=== PATIENT | female | born 1965 | race Caucasian/White ===

== ENCOUNTER → 2020-01-24 | Outpatient (CLI) | payer OTHER ==
[~2020-01-24] MED LIST: ATENOLOL25 MG PO; ATENOLOL50 MG PO; BACTRIM DS TAB1 EACH PO; KEFLEX500 MG PO; NABUMETONE500 MG PO; PROTONIX20 MG PO; RELAFEN PO; TESSALON PERLE100 MG PO; TIROSINT125 MCG PO; TIROSINT150 MCG PO; ULTRAM50 MG PO; VITAMIN D5000 UNIT PO; Z.0.LEVOTHYROXINE150 PO
[2020-01-24 12:37] LABS: BASOPHILS # (AUTO) 0.1 (0.0-0.1); BASOPHILS % 0.7 % (0.0-1.0); EOSINOPHILS # (AUTO) 0.1 (0.0-0.4); EOSINOPHILS % 0.8 % (0.0-6.0); HEMATOCRIT 41.2 % (34.2-44.1); HEMOGLOBIN 12.4 g/dL (12.0-16.0); LYMPHOCYTES # (AUTO) 2.3 (1.0-3.2); LYMPHOCYTES % 16.6 % (18.0-39.1); MEAN CORPUSCULAR HEMOGLOBIN 27.3 pg (28-32); MEAN CORPUSCULAR HGB CONC 30.1 g/dL (31-35); MEAN CORPUSCULAR VOLUME 90.7 fL (81-99); MONOCYTES # (AUTO) 1.7 (0.2-0.8); NEUTROPHILS # (AUTO) 9.6 (2.1-6.9); NEUTROPHILS % 69.3 % (38.7-80.0); PLATELET COUNT 156 x10e3/uL (140-360); RED BLOOD COUNT 4.54 x10e6/uL (3.6-5.1); RED CELL DISTRIBUTION WIDTH 13.5 % (11.7-14.4)
[2020-01-24 12:57] LABS: ALBUMIN 3.5 g/dL (3.5-5.0); ALBUMIN/GLOBULIN RATIO 0.9 (0.8-2.0); ANION GAP 11.2 mmol/L (8-16); CALCIUM 9.1 mg/dL (8.4-10.2); CREATININE, SERUM 1.4 mg/dL (0.57-1.11); POTASSIUM 4.2 mmol/L (3.5-5.1)
--- NOTE | 2020-01-24 13:20 | Diagnostic Imaging Report ---
EXAM: CHEST 2 VIEWS DATE: 01/24/2020 12:49 PM INDICATION: Preoperative evaluation, bladder cancer COMPARISON: 12/04/2019 FINDINGS: The trachea is midline. The lungs are symmetrically expanded without evidence for large focal consolidation, pneumothorax, or significant pleural effusion. The cardiomediastinal silhouette and pulmonary vasculature are within normal limits. Degenerative changes noted of the visualized spine. No acute osseous abnormality is identified. The surrounding soft tissues are unremarkable. IMPRESSION: No acute cardiopulmonary process identified. Signed by: Dr. Trell Guzman MD on 01/24/2020 1:16 PM
[2020-01-24 14:31] LABS: BAND NEUTROPHILS % (MANUAL) 4 %; LYMPHOCYTES % (MANUAL) 16 % (19-48); MONOCYTES % (MANUAL) 10 % (3.4-9.0); NEUTROPHILS % (MANUAL) 70 % (40-74); PLATELET ESTIMATE SLIGHTLY DECREASED; PLATELET MORPHOLOGY COMMENT NORMAL
== END ==
LOC: RAD 05:00 → EDSTATUS 01-30 09:00
PROVIDERS: ATTEND Urology
DX: Z01.818 Encounter for other preprocedural examination (principal); C67.9 Malignant neoplasm of bladder, unspecified; Z53.8 Procedure and treatment not carried out for other reasons; Z11.59 Encounter for screening for other viral diseases
CPT/HCPCS: 36415; 71046; 80053; 85025; 87086; 87186; U0002

== ENCOUNTER 2020-01-25 12:38 | Inpatient (IN) | payer OTHER ==
[~2020-01-25] VITALS: Ht 162.6 cm; Wt 145.6 kg
[~2020-01-25 12:38] MED LIST changes: -KEFLEX500 MG PO; -ULTRAM50 MG PO
[2020-01-25] MEDS ORDERED: SODIUM CHLORIDE 0.9% 1000ML 1,000 ML IV STA (13:23)
[2020-01-25 13:52] LABS: BASOPHILS # (AUTO) 0.1 (0.0-0.1); BASOPHILS % 0.6 % (0.0-1.0); EOSINOPHILS # (AUTO) 0.2 (0.0-0.4); EOSINOPHILS % 1.5 % (0.0-6.0); HEMATOCRIT 38.5 % (34.2-44.1); HEMOGLOBIN 11.7 g/dL (12.0-16.0); LYMPHOCYTES # (AUTO) 1.4 (1.0-3.2); LYMPHOCYTES % 9.9 % (18.0-39.1); MEAN CORPUSCULAR HEMOGLOBIN 27.4 pg (28-32); MEAN CORPUSCULAR HGB CONC 30.4 g/dL (31-35); MEAN CORPUSCULAR VOLUME 90.2 fL (81-99); MONOCYTES # (AUTO) 1.3 (0.2-0.8); MONOCYTES % 9.6 % (4.4-11.3); NEUTROPHILS # (AUTO) 10.9 (2.1-6.9); NEUTROPHILS % 77.9 % (38.7-80.0); PLATELET COUNT 329 x10e3/uL (140-360); RED BLOOD COUNT 4.27 x10e6/uL (3.6-5.1); RED CELL DISTRIBUTION WIDTH 13.7 % (11.7-14.4)
[2020-01-25 14:15] LABS: INR 0.97; PARTIAL THROMBOPLASTIN TIME 24.7 seconds (23.8-35.5); PROTHROMBIN TIME 13.5 seconds (11.9-14.5)
[2020-01-25 14:18] LABS: CLARITY,URINE HAZY (CLEAR); COLOR,URINE RED (YELLOW)
[2020-01-25 14:20] LABS: BILIRUBIN,URINE SMALL (NEGATIVE); KETONES,URINE NEGATIVE (NEGATIVE); LEUKOCYTE ESTERASE ,URINE NEGATIVE (NEGATIVE); NITRITE,URINE NEGATIVE (NEGATIVE); PROTEIN,URINE DIPSTICK >=300 (NEGATIVE); URINE UROBILINOGEN 0.2 mg/dL (0.2 - 1)
[2020-01-25 14:21] LABS: WBC,URINE (MAN) 0-5 /HPF (0-5)
[2020-01-25 14:22] LABS: EPITHELIAL CELLS,URINE RARE /LPF; RBC,URINE >50 /HPF (0-5)
[2020-01-25 14:23] LABS: ALBUMIN 3.4 g/dL (3.5-5.0); ALBUMIN/GLOBULIN RATIO 0.9 (0.8-2.0); ANION GAP 13.8 mmol/L (8-16); CALCIUM 8.7 mg/dL (8.4-10.2); CREATININE, SERUM 1.8 mg/dL (0.57-1.11); POTASSIUM 3.8 mmol/L (3.5-5.1)
--- NOTE | 2020-01-25 18:16 | Diagnostic Imaging Report ---
EXAM: CT Abdomen and Pelvis WITHOUT contrast INDICATION: Stone Protocol, H/O BLADDER CA, HEMATURIA RENAL COMPARISON: None. TECHNIQUE: Abdomen and pelvis were scanned utilizing a multidetector helical scanner from the lung base to the pubic symphysis without administration of IV contrast. Absence of intravenous contrast decreases sensitivity for detection of focal lesions and vascular pathology. Coronal and sagittal reformations were obtained. Routine protocol was performed. IV CONTRAST: None ORAL CONTRAST: Water COMPLICATIONS: None RADIATION DOSE: Total DLP: 775.12 mGy-cm Estimated effective dose: (DLP x 0.015 x size factor) mSv CTDIvol has been reviewed. It is below the limits set by the Radiation Protocol Committee (RPC). FINDINGS: LINES and TUBES: None. LOWER THORAX: There is bibasilar linear atelectasis. HEPATOBILIARY: The liver is diffuse hypodense compared to the spleen, consistent with diffuse hepatic diffuse hepatic steatosis. No focal hepatic lesions. No biliary ductal dilation. GALLBLADDER: There are cholecystectomy clips. SPLEEN: There is absent PANCREAS: The unenhanced pancreas shows no focal masses. There is no ductal dilatation. ADRENALS: The adrenal glands are unremarkable. KIDNEYS/URETERS/BLADDER: Left kidney: Left kidney is surgically absent. Slight soft tissue infiltration is noted in the left nephrectomy surgical bed (series 3, images [id number]) which could be postoperative. Right kidney:No cystic or solid mass lesions although evaluation is limited due to lack of IV contrast. There is mild right-sided hydroureteronephrosis. No definite stone is seen. This is likely due to bladder mass. Bladder: There is a 2.6 x 6.9 cm mass in the posterior bladder which is incompletely seen and evaluated on this exam. GI TRACT: No abnormal distention, wall thickening, or evidence of bowel obstruction. PELVIC ORGANS: Calcified fibroid uterus LYMPH NODES: No lymphadenopathy. VESSELS: Vessels are incompletely evaluated due to lack of IV contrast. However no definite aneurysm seen. PERITONEUM / RETROPERITONEUM: No free air or fluid. BONES: There are degenerative changes in the spine. SOFT TISSUES: Unremarkable. IMPRESSION: 1. Incompletely seen and evaluated mass in the bladder which approximately measures 2.6 x 6.9 cm. Recommend further evaluation with cystoscopy. 2. Mild right-sided hydroureteronephrosis likely due to obstruction by bladder mass. No obstructing calculus. 3. Left kidney is surgically absent. Slight soft tissue infiltration is noted in the left nephrectomy surgical bed likely postoperative. Recommend attention on follow-up Signed by: Kamaljit Rodriguez MD on 01/25/2020 6:12 PM
--- NOTE | 2020-01-25 18:40 | Emergency Department Note ---
History of Present Illnes History of Present Illness Chief Complaint: Genitourinary History of Present Illness This is a 54 year old female PATIENT IN FROM HOME WITH COMPLAINTS OF BLOOD IN URINE AND PAIN WITH URINATION X 2 WEEKS; STATES IS BEING TREATED FOR BLADDER CANCER. Historian: Patient Arrival Mode: Car Upholstery Cutter Required: No Radiation: Reports non-radiation Severity: moderate Onset quality: gradual Timing of current episode: constant Progression: worsening Chronicity: chronic Context: Denies recent illness Relieving factors: none Exacerbating factors: none Associated symptoms: Reports denies other symptoms Treatments prior to arrival: none Past Medical/Family History Physician Review I have reviewed the patient's past medical and family history. Any updates have been documented here. Past Medical History Recent Fever: No Clinical Suspicion of Infectio: No New/Unexplained Change in Ment: No Past Medical History: Hypertension, Hypothyroidism, Cancer Other Medical History: PALPITATIONS LEFT RENAL MASS BLADDER AND KIDNEY CANCER Past Surgical History: Cholecysctectomy, T&A Other Surgery: THROIDECTOMY OCTOBER 2010 LEFT FOOT SURGERY ACHILLES TENDON SURGERY RIGHT HAND FIBROID CYST SPLEENECTOMY LEFT NEPHRECTOMY Social History Smoking Cessation: Never Smoker Counseling Performed: No Alcohol Use: None Any Illegal Drug Use: No TB Exposure/Symptoms: No Physically hurt or threatened: No Family History Family history of heart diseas: No Other Last Tetanus: UTD Review of Systems Review of Systems Constitutional: Reports no symptoms EENTM: Reports no symptoms Cardiovascular: Reports no symptoms Respiratory: Reports no symptoms Gastrointestinal: Reports no symptoms Genitourinary: Reports as per HPI Musculoskeletal: Reports no symptoms Integumentary: Reports no symptoms Neurological: Reports no symptoms Psychological: Reports no symptoms Endocrine: Reports no symptoms Hematological/Lymphatic: Reports no symptoms Physical Exam Related Data Allergies: Coded Allergies: ceftriaxone (Verified Allergy, Unknown, SWELLING, WELTS, 01/25/20) morphine (Verified Allergy, Unknown, NAUSEA, 01/25/20) Triage Vital Signs Vital Signs Date Time Temp Pulse Resp B/P (MAP) Pulse Ox O2 Delivery O2 Flow Rate FiO2 01/25/20 12:57 99.0 78 18 176/96 98 Room Air Vital signs reviewed: Yes Physical Exam CONSTITUTIONAL Constitutional: Present well-developed, Present well-nourished HENT HENT: Present normocephalic, Present atraumatic, Present oropharynx clear/moist, Present nose normal HENT L/R: Present left ext ear normal, Present right ext ear normal EYES Eyes: Reports PERRL, Reports conjunctivae normal NECK Neck: Present ROM normal PULMONARY Pulmonary: Present effort normal, Present breath sounds normal CARDIOVASCULAR Cardiovascular: Present regular rhythm, Present heart sounds normal, Present capillary refill normal, Present normal rate GASTROINTESTINAL Abdominal: Present soft, Present bowel sounds normal, Present tender (MILD SUPRAPUBIC TENDERNESS) GENITOURINARY Genitourinary: Present exam deferred SKIN Skin: Present warm, Present dry MUSCULOSKELETAL Musculoskeletal: Present ROM normal NEUROLOGICAL Neurological: Present alert, Present oriented x 3, Present no gross motor or sensory deficits PSYCHOLOGICAL Psychological: Present mood/affect normal, Present judgement normal Results Laboratory Result Diagram: 01/25/20 1300 01/25/20 1300 Laboratory Laboratory Tests Test 01/25/20 13:00 White Blood Count 13.93 x10e3/uL (4.8-10.8) Red Blood Count 4.27 x10e6/uL (3.6-5.1) Hemoglobin 11.7 g/dL (12.0-16.0) Hematocrit 38.5 % (34.2-44.1) Mean Corpuscular Volume 90.2 fL (81-99) Mean Corpuscular Hemoglobin 27.4 pg (28-32) Mean Corpuscular Hemoglobin Concent 30.4 g/dL (31-35) Red Cell Distribution Width 13.7 % (11.7-14.4) Platelet Count 329 x10e3/uL (140-360) Neutrophils (%) (Auto) 77.9 % (38.7-80.0) Lymphocytes (%) (Auto) 9.9 % (18.0-39.1) Monocytes (%) (Auto) 9.6 % (4.4-11.3) Eosinophils (%) (Auto) 1.5 % (0.0-6.0) Basophils (%) (Auto) 0.6 % (0.0-1.0) Neutrophils # (Auto) 10.9 (2.1-6.9) Lymphocytes # (Auto) 1.4 (1.0-3.2) Monocytes # (Auto) 1.3 (0.2-0.8) Eosinophils # (Auto) 0.2 (0.0-0.4) Basophils # (Auto) 0.1 (0.0-0.1) Absolute Immature Granulocyte (auto 0.07 x10e3/uL (0-0.1) Prothrombin Time 13.5 seconds (11.9-14.5) Prothromb Time International Ratio 0.97 Activated Partial Thromboplast Time 24.7 seconds (23.8-35.5) Urine Color Red (YELLOW) Urine Clarity Hazy (CLEAR) Urine pH 7 (5 - 7) Urine Specific [place] 1.025 (1.010-1.025) Urine Protein >=300 (NEGATIVE) Urine Glucose (UA) Negative (NEGATIVE) Urine Ketones Negative (NEGATIVE) Urine Blood Large (NEGATIVE) Urine Nitrite Negative (NEGATIVE) Urine Bilirubin Small (NEGATIVE) Urine Urobilinogen 0.2 mg/dL (0.2 - 1) Urine Leukocyte Esterase Negative (NEGATIVE) Urine RBC >50 /HPF (0-5) Urine WBC 0-5 /HPF (0-5) Urine Epithelial Cells Rare /LPF (NONE) Urine Bacteria None /HPF (NONE) Sodium Level 143 mmol/L (136-145) Potassium Level 3.8 mmol/L (3.5-5.1) Chloride Level 107 mmol/L (98-107) Carbon Dioxide Level 26 mmol/L (22-29) Anion Gap 13.8 mmol/L (8-16) Blood Urea Nitrogen 24 mg/dL (7-26) Creatinine 1.80 mg/dL (0.57-1.11) Estimat Glomerular Filtration Rate 29 ML/MIN (60-) BUN/Creatinine Ratio 13 (6-25) Glucose Level 123 mg/dL (74-118) Calcium Level 8.7 mg/dL (8.4-10.2) Total Bilirubin 0.2 mg/dL (0.2-1.2) Aspartate Amino Transf (AST/SGOT) 24 IU/L (5-34) Alanine Aminotransferase (ALT/SGPT) 23 IU/L (0-55) Alkaline Phosphatase 92 IU/L (40-150) Total Protein 7.1 g/dL (6.5-8.1) Albumin 3.4 g/dL (3.5-5.0) Globulin 3.7 g/dL (2.3-3.5) Albumin/Globulin Ratio 0.9 (0.8-2.0) Lab results reviewed: Yes Imaging Imaging results reviewed: Yes Impressions Procedure: [id number] CT/CT ABDOMEN/PELVIS WO Exam Date: 01/25/20 Exam Time: 1710 REPORT STATUS: Signed EXAM: CT Abdomen and Pelvis WITHOUT contrast INDICATION: Stone Protocol, H/O BLADDER CA, HEMATURIA RENAL COMPARISON: None. TECHNIQUE: Abdomen and pelvis were scanned utilizing a multidetector helical scanner from the lung base to the pubic symphysis without administration of IV contrast. Absence of intravenous contrast decreases sensitivity for detection of focal lesions and vascular pathology. Coronal and sagittal reformations were obtained. Routine protocol was performed. IV CONTRAST: None ORAL CONTRAST: Water COMPLICATIONS: None RADIATION DOSE: Total DLP: 775.12 mGy-cm Estimated effective dose: (DLP x 0.015 x size factor) mSv CTDIvol has been reviewed. It is below the limits set by the Radiation Protocol Committee (RPC). FINDINGS: LINES and TUBES: None. LOWER THORAX: There is bibasilar linear atelectasis. HEPATOBILIARY: The liver is diffuse hypodense compared to the spleen, consistent with diffuse hepatic diffuse hepatic steatosis. No focal hepatic lesions. No biliary ductal dilation. GALLBLADDER: There are cholecystectomy clips. SPLEEN: There is absent PANCREAS: The unenhanced pancreas shows no focal masses. There is no ductal dilatation. ADRENALS: The adrenal glands are unremarkable. KIDNEYS/URETERS/BLADDER: Left kidney: Left kidney is surgically absent. Slight soft tissue infiltration is noted in the left nephrectomy surgical bed (series 3, images [id number]) which could be postoperative. Right kidney:No cystic or solid mass lesions although evaluation is limited due to lack of IV contrast. There is mild right-sided hydroureteronephrosis. No definite stone is seen. This is likely due to bladder mass. Bladder: There is a 2.6 x 6.9 cm mass in the posterior bladder which is incompletely seen and evaluated on this exam. GI TRACT: No abnormal distention, wall thickening, or evidence of bowel obstruction. PELVIC ORGANS: Calcified fibroid uterus LYMPH NODES: No lymphadenopathy. VESSELS: Vessels are incompletely evaluated due to lack of IV contrast. However no definite aneurysm seen. PERITONEUM / RETROPERITONEUM: No free air or fluid. BONES: There are degenerative changes in the spine. SOFT TISSUES: Unremarkable. IMPRESSION: 1. Incompletely seen and evaluated mass in the bladder which approximately measures 2.6 x 6.9 cm. Recommend further evaluation with cystoscopy. 2. Mild right-sided hydroureteronephrosis likely due to obstruction by bladder mass. No obstructing calculus. 3. Left kidney is surgically absent. Slight soft tissue infiltration is noted in the left nephrectomy surgical bed likely postoperative. Recommend attention on follow-up Signed by: Kamaljit Rodriguez MD on 01/25/2020 6:12 PM Assessment & Plan Medical Decision Making MDM CBC, CHEM, PT/PTT, UA, CT ABD/PELVIS - EVAL FOR ANEMIA, RENAL INSUFF, OBSTRUCTIVE UROPATHY Reassessment Reassessment D/W DR NOLAN, ADMIT TO DR PATEL, DR NOLAN WANTS ANCEF 1 GM IV Q12H Assessment & Plan Final Impression: (1) Hematuria (2) Bladder cancer (3) Ureteral obstruction, right (4) Solitary right kidney (5) Renal insufficiency Depart Disposition: ADMITTED Last Vital Signs Date Time Temp Pulse Resp B/P (MAP) Pulse Ox O2 Delivery O2 Flow Rate FiO2 01/25/20 12:57 99.0 78 18 176/96 98 Room Air Home Meds Reported Medications Pantoprazole Sodium (PROTONIX) 20 Mg Tablet.dr, 40 MG PO DAILY, #30 TAB 01/24/20 Sulfamethoxazole/Trimethoprim (BACTRIM DS TABLET) 1 Each Tablet, 1 TAB PO BID, #60 TAB 01/24/20 Atenolol (ATENOLOL) 50 Mg Tablet, 100 MG PO DAILY 10/09/16 Levothyroxine Sodium (TIROSINT) 150 Mcg Capsule, 150 MCG PO DAILY 10/09/16 Cholecalciferol (Vitamin D3) (VITAMIN D) 5,000 Unit Tablet, 1 TAB PO DAILY 12/01/13 Discontinued Reported Medications [Relafen] No Conflict Check, 500 MG PO BID 10/09/16 Medications in the ED Sodium Chloride 1,000 ml @ 0 mls/hr Q0M STAT IV Last administered on 01/25/20at 15:51; Admin Dose 1,000 MLS/HR; Start 01/25/20 at 13:23; Stop 01/25/20 at 13:25; Status DC LILIANA BORGES MD Jan 25, 2020 18:39
[2020-01-25] MEDS ORDERED: ONDANSETRON HCL INJ 2MG/ML 2ML 2 MG/ML VIAL IV PRN (18:45)
[2020-01-25] MEDS ORDERED: HYDROMORPHONE 1MG/1ML INJ IV PRN (18:45)
--- NOTE | 2020-01-25 20:35 | NUR ---
PT HAD PRE-OP COVID -19 SWAB OBTAINED YESTERDAY, 01/24/20.
[2020-01-25 21:45] VITALS: BP 152/79
--- NOTE | 2020-01-25 22:00 | NUR ---
Pt admitted to room 202 via WC from home. Pt alert and oriented to name, hospital, time, and diagnosis: Bladder Cancer, Renal Insufficiency, Solitary Rt Kidney since November 2019, Right Ureteral obstruction, and Hematuria. Pt skin warm and intact, healed vertical abdomen wound incision. Lungs CTA. Denies pain at this time. Last Bowel 01/24. c/o hematuria, bright red urine with clots increased since yesterday. Ambulatory, steady gait. Orientated to room, call light within reach. Bed low and locked.
[2020-01-25] MEDS: PIPERACILLIN/TAZO 2.25 GM 50 ML IV SCH (23:00)
[2020-01-25] MEDS: SODIUM CHLORIDE 0.9% 1000ML 1,000 ML IV SCH (23:00)
[2020-01-25 23:14] VITALS: BP 152/79
[2020-01-25 23:15] VITALS: BP 152/79
[2020-01-26] VITALS (7 sets, daily range): BP systolic 121–159; BP diastolic 69–90
[2020-01-26 01:43] LABS: CREATINE KINASE 12 IU/L (29-168)
[2020-01-26] MEDS: SODIUM CHLORIDE 0.9% 1000ML 1,000 ML IV SCH ×2 (04:45→11:00)
[2020-01-26] MEDS: PIPERACILLIN/TAZO 2.25 GM 50 ML IV SCH (04:56)
[2020-01-26 05:57] LABS: BASOPHILS # (AUTO) 0.1 (0.0-0.1); BASOPHILS % 0.5 % (0.0-1.0); EOSINOPHILS # (AUTO) 0.2 (0.0-0.4); EOSINOPHILS % 1.8 % (0.0-6.0); HEMATOCRIT 34.6 % (34.2-44.1); HEMOGLOBIN 10.4 g/dL (12.0-16.0); LYMPHOCYTES # (AUTO) 2.8 (1.0-3.2); LYMPHOCYTES % 21.4 % (18.0-39.1); MEAN CORPUSCULAR HEMOGLOBIN 27.4 pg (28-32); MEAN CORPUSCULAR HGB CONC 30.1 g/dL (31-35); MEAN CORPUSCULAR VOLUME 91.1 fL (81-99); MONOCYTES # (AUTO) 1.4 (0.2-0.8); NEUTROPHILS # (AUTO) 8.4 (2.1-6.9); NEUTROPHILS % 64.8 % (38.7-80.0); PLATELET COUNT 296 x10e3/uL (140-360); RED CELL DISTRIBUTION WIDTH 13.7 % (11.7-14.4)
[2020-01-26 06:42] LABS: ALBUMIN 3.1 g/dL (3.5-5.0); ANION GAP 11.9 mmol/L (8-16); CREATININE, SERUM 1.74 mg/dL (0.57-1.11); POTASSIUM 3.9 mmol/L (3.5-5.1)
[2020-01-26 07:11] LABS: CREATINE KINASE 14 IU/L (29-168)
[2020-01-26 11:19] LABS: CREATINE KINASE MB 0.3 ng/mL (0-5.0)
[2020-01-26] MEDS ORDERED: ATENOLOL 100 MG TAB PO SCH (12:15)
[2020-01-26] MEDS ORDERED: ZOLPIDEM TARTRATE 10 MG TAB PO PRN (15:00)
--- NOTE | 2020-01-26 16:02 | Diagnostic Imaging Report ---
EXAMINATION: CHEST 2 VIEWS INDICATION: ^pre op COMPARISON: None FINDINGS: PA and lateral views TUBES and LINES: None. LUNGS/PLEURA: Lungs are well inflated. There are bilateral interstitial opacities could be due to pulmonary edema. Focal left basilar opacity could be due to atelectasis or pneumonia.. There is no pleural effusion or pneumothorax. HEART AND MEDIASTINUM: The cardiomediastinal silhouette is unremarkable. BONES AND SOFT TISSUES: No acute osseous lesion. Soft tissues are unremarkable. UPPER ABDOMEN: No free air under the diaphragm. IMPRESSION: Bilateral interstitial opacities could be due to pulmonary edema. Focal left basilar opacity could be due to atelectasis. Pneumonia could be considered in appropriate clinical setting. Signed by: Kamaljit Rodriguez MD on 01/26/2020 3:59 PM
--- NOTE | 2020-01-26 16:25 | Consultation ---
DATE OF CONSULTATION: 01/26/[address] Parker George. The patient is a 54-year-old female who comes to the hospital with gross hematuria and passing clots and having difficulties urinating. The patient by history had three months ago left nephrectomy for cancer of the kidney, involve the ureter. 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 The patient also was found to have a bladder cancer. 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 Originally, the patient was sent to [facility] for treatment. Unfortunately, [facility] did not take her insurance. She then was sent to [facility]. Unfortunately, again [facility] did not accept her insurance. They have been delayed in her treatment over the last 2-1/2 months because of also restrictions to hospitals as well as verification because of the Coronavirus that we have now in [facility]. We finally have obtained operating room time here at [facility] and of course the operating room time is restricted because again of the Coronavirus outbreak. The patient has had multiple episodes in the last three weeks of gross hematuria. Finally, yesterday, she started passing clots and she came to the hospital. Evaluation did show that she has mild hydronephrosis on the right kidney, which is a kidney that 3-1/2 to 4 months ago when she was originally seen, did not have any hydronephrosis. In fact, on the CT, it is noted that the tumor in the bladder has grown. Currently, I have discussed the problem with obtaining earlier operating room time with the patient. I will be discussing the case with Dr. Bernal, co-surgeon in this case, and see if we can take the patient to the operating room earlier than . If not, the patient will have her bowel prep here in the hospital. I will order a chest x-ray for tomorrow. Her evaluation has been essentially metastatic free so far. She has seen her oncologist, Dr. Youngblood and we are planning to do adjuvant chemo since this tumor is quite aggressive as I see now the growth and the obstruction to the right side. I have discussed with the patient the surgery, the loop, the complications, hysterectomy as well oophorectomy and partial vaginectomy. She understands that her body habitus is little difficult, particularly with the loop and I consulted Dr. Bernal, who has been kind enough to do the loop harvesting. MD SINDY Payton/ROSANA /[id number]
[2020-01-26] MEDS: ACETAMINOPHEN 325 MG TAB PO PRN ×2 (16:41→22:05)
[2020-01-26] MEDS: ATENOLOL 50 MG TAB PO SCH (16:41)
--- NOTE | 2020-01-26 18:55 | NUR ---
Bedside shift report completed with morning nurse. Pt lying IN BED HOB 45 DEGREES. Pt denies pain at this time. Call light within reach. Bed locked.
[2020-01-27] VITALS: BP 171/90
[2020-01-27 04:00] VITALS: BP 135/83
[2020-01-27 05:30] LABS: BASOPHILS # (AUTO) 0.1 (0.0-0.1); BASOPHILS % 0.5 % (0.0-1.0); EOSINOPHILS # (AUTO) 0.6 (0.0-0.4); EOSINOPHILS % 4.9 % (0.0-6.0); HEMATOCRIT 35.4 % (34.2-44.1); HEMOGLOBIN 10.5 g/dL (12.0-16.0); LYMPHOCYTES # (AUTO) 2.4 (1.0-3.2); LYMPHOCYTES % 21.7 % (18.0-39.1); MEAN CORPUSCULAR HEMOGLOBIN 27.5 pg (28-32); MEAN CORPUSCULAR HGB CONC 29.7 g/dL (31-35); MEAN CORPUSCULAR VOLUME 92.7 fL (81-99); MONOCYTES # (AUTO) 1.3 (0.2-0.8); MONOCYTES % 11.6 % (4.4-11.3); NEUTROPHILS # (AUTO) 6.8 (2.1-6.9); NEUTROPHILS % 60.9 % (38.7-80.0); PLATELET COUNT 291 x10e3/uL (140-360); RED BLOOD COUNT 3.82 x10e6/uL (3.6-5.1); RED CELL DISTRIBUTION WIDTH 13.8 % (11.7-14.4)
[2020-01-27] MEDS: LEVOTHYROXINE SODIUM 100 MCG TAB PO SCH (05:52)
[2020-01-27 05:56] LABS: ANION GAP 11.3 mmol/L (8-16); CALCIUM 8.6 mg/dL (8.4-10.2); CREATININE, SERUM 1.98 mg/dL (0.57-1.11); POTASSIUM 4.3 mmol/L (3.5-5.1)
[2020-01-27] MEDS ORDERED: ATENOLOL 50 MG TAB PO SCH (09:00)
[2020-01-27] MEDS: SODIUM CHLORIDE 0.9% 1000ML 1,000 ML IV SCH ×2 (09:06→16:11)
[2020-01-27] MEDS: ATENOLOL 50 MG TAB PO SCH (09:09)
[2020-01-27 09:15] VITALS: BP 156/84
--- NOTE | 2020-01-27 09:40 | NUR ---
ASSESSMENT: Spiritual concern Pt determined to recover from illness. 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 Pt states she has a large support group of family and friends. Intervention: Provided hospitality and facilitated illness review. Facilitated conversation about resources. Provided information on how to reach button grader, if needed. Outcome: Pt expressed appreciation for visit. No need to follow at this time. MARYANA FLETCHER User Interface Engineer Spiritual Care Department O: [phone]
--- NOTE | 2020-01-27 09:48 | Progress Note ---
DATE: Today, the patient states the urine is relatively clear. No clots since last evening. I discussed with the patient to let us know if she has passed some more clots. I will put a Bowers catheter in, I do not want her bladder distended. So far, I have discussed the case with Dr. Bernal and the operating room. The operating room has no more elective time until to do this case, so we will have to wait until to do so. She is receiving IV antibiotics. Hopefully, if she had a minor infection, this will cleared up and we prevent any further edematous changes as reaction to the tumor causing mild hydronephrosis. So far, the target date of surgery is morning. Stated because of COVID-19, the operating rooms schedule is decreased, particularly on elective procedures and will have to wait until there is room to do so. MD SINDY Payton/MODL /[id number]
[2020-01-27 11:00] VITALS: BP 143/83
[2020-01-27] MEDS ORDERED: CEFTRIAXONE SOD 1 GM/NS 50 ML 50 ML IV SCH (12:15)
--- NOTE | 2020-01-27 13:09 | History and Physical ---
CHIEF COMPLAINT: Hematuria. HISTORY OF PRESENT ILLNESS: This is a 54-year-old morbidly obese woman with known renal cell carcinoma, status post left nephrectomy. The patient also has bladder cancer, status post biopsy last month. After she was discharged, her hematuria resolved, but slowly it is started coming back. Initially, it was just pinkish, however, yesterday the patient began to clots and she was unable to empty her bladder until she got to the emergency room where she received some IV fluids and that the clot came out and she was able to urinate now. The patient never started on her anticoagulation for her atrial fibrillation. Otherwise, denies chest pain. No shortness of breath. No nausea or vomiting. PAST MEDICAL AND SURGICAL HISTORY: 1. Hypertension number. 2. Thyroid disease, status post thyroid surgery. 3. Previous cholecystectomy. 4. Left nephrectomy. 5. Splenectomy. MEDICATIONS: Please see medication reconciliation form. ALLERGIES: NONE. SOCIAL HISTORY: Does not smoke. FAMILY HISTORY: Father with colon cancer. REVIEW OF SYSTEMS: A 10-point review of systems obtained and nothing else is significant other than what is stated in HPI. PHYSICAL EXAMINATION: VITAL SIGNS: Temperature 98.6, pulse 64, respiratory rate 20, blood pressure 134/84. GENERAL: No acute distress. SKIN: No rash. HEENT: Anicteric. Oropharynx is clear. LUNGS: Clear. HEART: Regular rate and rhythm. Normal S1 and S2. GI: Abdomen is soft and nondistended. MUSCULOSKELETAL: Painless range of motion in joints. NEUROLOGIC: Alert and oriented x3. Cranial nerves 2 to 12 grossly intact. PSYCHIATRIC: No hallucination. LABORATORY DATA: White count 13, hemoglobin 10, and platelet count 296. PT and PTT are normal. Creatinine is 1.7. Troponins are negative x3. UA was unremarkable other than blood. CT with a 2 x 6 mass in the bladder noted. ASSESSMENT AND PLAN: 1. Bladder cancer. Hopefully, we can do surgery sometime this week per Dr. Slaughter given pandemic. In the mean time, I will continue to hydrate her and monitor her creatinine. Hopefully, at this time, her creatinine will come down again. 2. Hypertension. Continue atenolol. 3. Atrial fibrillation. We will continue atenolol. Obviously no anticoagulation at this time. 4. Hypothyroidism. We will continue her levothyroxine. 5. Deep venous thrombosis prophylaxis. No anticoagulation due to planned surgery. YiMD DOMINGO Ahumada/ROSANA /[id number]
[2020-01-27 16:00] VITALS: BP 153/78
[2020-01-27] MEDS: AZTREONAM 1 GM/NS 50 ML 50 ML IV SCH (16:08)
[2020-01-27] MEDS: ACETAMINOPHEN 325 MG TAB PO PRN (16:11)
[2020-01-27] MEDS ORDERED: ACETAMINOPHEN/CODEINE 300MG - 30MG TAB PO PRN (16:45)
[2020-01-27 20:00] VITALS: BP 155/84
[2020-01-27] MEDS: MAGNESIUM HYDROXIDE 30 ML UDC PO SCH (21:00)
[2020-01-28] VITALS (8 sets, daily range): BP systolic 148–171; BP diastolic 78–103
--- NOTE | 2020-01-28 00:26 | Progress Note ---
DATE: 01/27/2020 CHIEF COMPLAINT: No blood clots in her urine today. OBJECTIVE: VITAL SIGNS: Afebrile. Vital signs stable. Blood pressure 156/84. SKIN: No rash. GENERAL: In no acute distress. LUNGS: Clear. HEART: Regular rate and rhythm. Normal S1, S2. GI: Abdomen is soft, nondistended. NEUROLOGIC: Alert and oriented x3. PSYCHIATRIC: No hallucination. LABORATORY DATA: Laboratory peters, white count 11, hemoglobin 10, platelet count 291. Creatinine is 1.8. Urine culture is growing Gram-negative rods. Her COVID is negative. ASSESSMENT AND PLAN: 1. Hematuria due to bladder cancer with acute kidney injury versus chronic kidney disease. At this time, we will continue IV fluid. We will also add Tylenol No. 3 for pain control. Given the right hydronephrosis. Post renal failure is also an etiology. We will repeat the creatinine in the morning. Given COVID pandemic. The earlier surgery can be performed on . 2. Bacteriuria. Given her allergies to Rocephin. We will put her on aztreonam. We will follow up on the urine culture results. Of note, her UA was actually relatively benign. 3. Hypertension. We will continue atenolol. 4. Paroxysmal atrial fibrillation. We will also continue atenolol. 5. Hypothyroidism. We will continue her levothyroxine. 6. Gastrointestinal and deep vein thrombosis prophylaxis. No anticoagulation due to hematuria and also planned surgery. MD DOMINGO Valerio/ROSANA /[id number]
[2020-01-28] MEDS: AZTREONAM 1 GM/NS 50 ML 50 ML IV SCH (03:49)
[2020-01-28] MEDS: LEVOTHYROXINE SODIUM 100 MCG TAB PO SCH (05:43)
[2020-01-28 05:48] LABS: CALCIUM 8.3 mg/dL (8.4-10.2); CREATININE, SERUM 2.18 mg/dL (0.57-1.11)
[2020-01-28] MEDS: ATENOLOL 50 MG TAB PO SCH (09:37)
[2020-01-28] MEDS: SODIUM CHLORIDE 0.9% 1000ML 1,000 ML IV SCH ×2 (09:38→16:45)
--- NOTE | 2020-01-28 09:55 | NUR ---
AVEL Lux with [employer] for ri assistance - [phone]
[2020-01-28] MEDS ORDERED: HYDRALAZINE HCL 20 MG/ML VIAL IV PRN (12:00)
[2020-01-28] MEDS ORDERED: MEROPENEM 500MG/ NS 50ML 50 ML IV SCH (12:30)
[2020-01-28] MEDS: PANTOPRAZOLE SOD 40 MG TABEC PO SCH (15:52)
[2020-01-28] MEDS: HYDRALAZINE HCL 25 MG TAB PO SCH ×2 (15:53→22:25)
[2020-01-28] MEDS ORDERED: TRAMADOL HCL 50 MG TAB PO PRN (16:00)
[2020-01-28] MEDS: MAGNESIUM HYDROXIDE 30 ML UDC PO SCH (21:00)
[2020-01-28] MEDS: MEROPENEM 500MG/ NS 50ML 50 ML IV SCH (22:25)
[2020-01-29] VITALS (7 sets, daily range): BP systolic 116–147; BP diastolic 67–84
--- NOTE | 2020-01-29 01:34 | Progress Note ---
DATE: 01/28/2020 SUBJECTIVE: No obvious blood clots in her urine. OBJECTIVE: VITAL SIGNS: Temperature 98.8, pulse 64, respiratory rate 18, blood pressure 148/80. GENERAL: No acute distress. SKIN: No rash. LUNGS: Clear. HEART: Regular rate and rhythm. Normal S1, S2. GI: Abdomen is soft, nondistended. MUSCULOSKELETAL: Painless range of motion in joints. NEUROLOGIC: Alert and oriented x3. PSYCHIATRIC: No hallucination. LABORATORY DATA: Creatinine 2.18. ASSESSMENT AND PLAN: 1. Hematuria due to bladder cancer. We will change Tylenol #3 to tramadol. Tramadol for pain control. Tentatively, surgery will be on . 2. Probable acute kidney injury due to right-sided hydronephrosis. I have discussed this case with Dr. Slaughter. At this time, Bowers catheter will not help. We will continue IV fluid and continue to monitor her creatinine. 3. Morbid obesity. 4. Extended-spectrum beta-lactamase Escherichia coli in her urine. Even though her urinalysis was fairly benign, we will put her on renal dose meropenem for now. 5. Uncontrolled hypertension. We will add hydralazine to her atenolol. 6. Paroxysmal atrial fibrillation. We will continue atenolol. 7. Hypothyroidism. We will continue her levothyroxine. 8. Gastrointestinal deep venous thrombosis prophylaxis. No chemical deep venous thrombosis prophylaxis due to hematuria and planned surgery. Yiching MD DOMINGO Carrillo/ROSANA /[id number]
[2020-01-29] MEDS: SODIUM CHLORIDE 0.9% 1000ML 1,000 ML IV SCH ×3 (01:50→23:00)
[2020-01-29] MEDS: LEVOTHYROXINE SODIUM 100 MCG TAB PO SCH (05:31)
[2020-01-29] MEDS: HYDRALAZINE HCL 25 MG TAB PO SCH ×3 (05:31→21:49)
[2020-01-29 05:34] LABS: ANION GAP 14.1 mmol/L (8-16); CALCIUM 8.1 mg/dL (8.4-10.2); CREATININE, SERUM 2.58 mg/dL (0.57-1.11); POTASSIUM 4.1 mmol/L (3.5-5.1)
[2020-01-29] MEDS: MEROPENEM 500MG/ NS 50ML 50 ML IV SCH ×2 (09:35→21:48)
[2020-01-29] MEDS: PANTOPRAZOLE SOD 40 MG TABEC PO SCH (09:35)
[2020-01-29] MEDS: ATENOLOL 50 MG TAB PO SCH (09:36)
--- NOTE | 2020-01-29 18:58 | NUR ---
bedside shift report compleeted to manager shift RN.
--- NOTE | 2020-01-29 19:00 | NUR ---
Received nursing shift report from morning nurse. Pt alert and oriented to name, sitting in recliner. Denies pain at this time. Call light within reach.
[2020-01-29] MEDS: MAGNESIUM HYDROXIDE 30 ML UDC PO SCH (21:00)
--- NOTE | 2020-01-29 23:19 | Progress Note ---
DATE: 01/29/2020 SUBJECTIVE: No new complaints. OBJECTIVE: VITAL SIGNS: Temperature 98.9, pulse 60, respiratory rate 17, and blood pressure 144/84. GENERAL: No acute distress. SKIN: No rash. LUNGS: Clear. HEART: Regular rate and rhythm. Normal S1 and S2. GI: Abdomen is soft and nondistended. NEUROLOGIC: Alert and oriented x3. PSYCHIATRIC: No hallucination. LABORATORY DATA: Laboratory peters, creatinine is 2.58. ASSESSMENT AND PLAN: 1. Hematuria due to bladder cancer, also causing acute kidney injury due to right-sided hydronephrosis. Her creatinine continued to go up a little bit. I have discussed with Dr. Slaughter. Surgery tomorrow should fix the problem. 2. Morbid obesity. 3. Extended-spectrum beta-lactamase Escherichia coli in the urine. We will continue renal dose meropenem. 4. Hypertension, better after adding hydralazine to her atenolol. 5. Paroxysmal atrial fibrillation. We will continue atenolol. 6. Hypothyroidism. We will continue her levothyroxine. 7. Gastrointestinal and deep venous thrombosis prophylaxis. No chemical deep venous thrombosis prophylaxis due to planned surgery. Felaching MD DOMINGO Carrillo/ROSANA /[id number]
[2020-01-30] VITALS: BP 130/86
[2020-01-30 04:00] VITALS: BP 114/59
[2020-01-30] MEDS: HYDRALAZINE HCL 25 MG TAB PO SCH (06:00)
[2020-01-30] MEDS: LEVOTHYROXINE SODIUM 100 MCG TAB PO SCH (06:00)
[2020-01-30 07:18] VITALS: BP 170/95
[2020-01-30] MEDS: MEROPENEM 500MG/ NS 50ML 50 ML IV SCH ×2 (08:20→21:28)
[2020-01-30] MEDS: SODIUM CHLORIDE 0.9% 1000ML 1,000 ML IV SCH (08:20)
[2020-01-30] MEDS: PANTOPRAZOLE SOD 40 MG TABEC PO SCH (08:21)
[2020-01-30] MEDS: ATENOLOL 50 MG TAB PO SCH (08:24)
[2020-01-30] MEDS ORDERED: HEPARIN SOD/SOD CHLORIDE 1,000 ML ONE (08:58)
[2020-01-30] MEDS ORDERED: BUPIVACAINE 0.25% 30ML SDV INJ ONE (16:23)
[2020-01-30] MEDS ORDERED: BUPIVACAINE LIPOSOME/PF 266 MG/20 ML IJ ONE (16:25)
[2020-01-30] MEDS ORDERED: DEXTROSE 5%/0.45% SOD CHL 1,000 ML IV ONE ×2 (17:45→21:30)
[2020-01-30] MEDS ORDERED: HYDROMORPHONE 1MG/1ML INJ IV PRN (17:45)
[2020-01-30] MEDS ORDERED: FENTANYL CITRATE/PF 100MCG/2 ML INJ ONE (17:57)
--- NOTE | 2020-01-30 18:17 | Diagnostic Imaging Report ---
Examination: Single AP view of the chest. COMPARISON: None. INDICATION: Central line placement DISCUSSION: Lines/tubes: Enteric tube with the distal tip overlying the left upper quadrant. Right IJ central venous catheter with tip overlying the SVC. Lungs: Low lung volumes with lung base atelectasis. Pleura: There is no pleural effusion or pneumothorax. Heart and mediastinum: The heart and the mediastinum are unremarkable. Bones and soft tissues: No acute bony abnormalities. IMPRESSION: Right IJ catheter with tip overlying the SVC. Signed by: Dr. Parker Donohue M.D. on 01/30/2020 6:14 PM
--- NOTE | 2020-01-30 18:57 | NUR ---
patient arrived to unit.
--- NOTE | 2020-01-30 19:00 | NUR ---
Patient arrived to the floor via stretcher. Report given. Patient placed on a cooling blanket for temp of 94.4. Continue monitor.
[2020-01-30] MEDS ORDERED: NALOXONE HCL INJ 0.4 MG/ML AMP IV PRN (19:45)
--- NOTE | 2020-01-30 19:50 | NUR ---
Dr Fito Grissom. on the floor to write orders. Will f/u on orders.
[2020-01-30 20:00] VITALS: BP 106/63
[2020-01-30] MEDS ORDERED: ONDANSETRON HCL INJ 2MG/ML 2ML 2 MG/ML VIAL ONE (20:14)
[2020-01-30] MEDS ORDERED: ACETAMINOPHEN 1000 MG/100 ML IV ONE (20:14)
[2020-01-30] MEDS ORDERED: ETOMIDATE 2 MG/ML 10 ML INJ IV ONE (20:14)
[2020-01-30] MEDS ORDERED: ROCURONIUM BROMIDE 10 MG/ML 5ML VIAL IV ONE (20:14)
[2020-01-30] MEDS ORDERED: LABETALOL HCL 5 MG/ML 20ML VIAL ONE (20:14)
[2020-01-30] MEDS ORDERED: NEOSTIGMINE 1 MG/ML 10ML VIAL ONE (20:14)
[2020-01-30] MEDS ORDERED: ATROPINE SULFATE 1 MG/ML VIAL ONE (20:14)
[2020-01-30] MEDS ORDERED: SEVOFLURANE INHAL SOLN 250 ML PEN BTL ONE (20:14)
[2020-01-30] MEDS ORDERED: DEXAMETHASONE SOD PHOS INJ 4 MG/ML VIAL ONE (20:14)
[2020-01-30 21:39] LABS: BASOPHILS # (AUTO) 0.1 (0.0-0.1); BASOPHILS % 0.2 % (0.0-1.0); HEMATOCRIT 29.9 % (34.2-44.1); HEMOGLOBIN 8.9 g/dL (12.0-16.0); LYMPHOCYTES # (AUTO) 0.8 (1.0-3.2); LYMPHOCYTES % 3.6 % (18.0-39.1); MEAN CORPUSCULAR HEMOGLOBIN 27.5 pg (28-32); MEAN CORPUSCULAR HGB CONC 29.8 g/dL (31-35); MEAN CORPUSCULAR VOLUME 92.3 fL (81-99); MONOCYTES % 9.6 % (4.4-11.3); NEUTROPHILS # (AUTO) 17.9 (2.1-6.9); NEUTROPHILS % 86.2 % (38.7-80.0); PLATELET COUNT 225 x10e3/uL (140-360); RED BLOOD COUNT 3.24 x10e6/uL (3.6-5.1); RED CELL DISTRIBUTION WIDTH 14.1 % (11.7-14.4)
[2020-01-30 21:59] LABS: ALBUMIN 2.6 g/dL (3.5-5.0); ALBUMIN/GLOBULIN RATIO 0.9 (0.8-2.0); ANION GAP 14.4 mmol/L (8-16); CALCIUM 8.1 mg/dL (8.4-10.2); CREATININE, SERUM 3.05 mg/dL (0.57-1.11)
[2020-01-30 22:00] LABS: POTASSIUM 5.4 mmol/L (3.5-5.1)
[2020-01-30] MEDS: HYDROMORPHONE 0.2MG/ML-SOD CHL 30ML PCA SYRINGE IV PRN (22:00)
[2020-01-30] MEDS: SODIUM CHLORIDE 0.9% 250ML IRRIG IR SCH (22:00)
--- NOTE | 2020-01-30 23:26 | NUR ---
Patient request ice chips. Called MD to request but refused. NPO. Explained to patient several times with teaching done on risk factors. Continue monitor.
[2020-01-31] VITALS: BP 118/73
[2020-01-31] MEDS: SODIUM CHLORIDE 0.9% 250ML IRRIG IR SCH ×6 (02:00→21:26)
--- NOTE | 2020-01-31 02:41 | NUR ---
Patient received bath. left IV painful d/c. Patient removed from heat blanket with temp of 98.6. RECRUITING ADMINISTRATOR pump stated and patient instructed to proper use. NGT FLUSHED ORDERED.
--- NOTE | 2020-01-31 03:00 | NUR ---
Patient BP down 79/51. Called Dr Nunes x3. Received order for bolus. Bolus given as requested.
[2020-01-31 04:00] VITALS: BP 82/46
[2020-01-31] MEDS ORDERED: LACTATED RINGER'S 1,000 ML INJ ONE (06:00)
--- NOTE | 2020-01-31 06:52 | NUR ---
Patient BP up to 94/ 58. Continue monitor.
[2020-01-31 07:27] LABS: BASOPHILS % 0.2 % (0.0-1.0); EOSINOPHILS % 0.1 % (0.0-6.0); HEMATOCRIT 24.8 % (34.2-44.1); HEMOGLOBIN 7.4 g/dL (12.0-16.0); LYMPHOCYTES # (AUTO) 1.6 (1.0-3.2); LYMPHOCYTES % 9.3 % (18.0-39.1); MEAN CORPUSCULAR HEMOGLOBIN 27.6 pg (28-32); MEAN CORPUSCULAR HGB CONC 29.8 g/dL (31-35); MEAN CORPUSCULAR VOLUME 92.5 fL (81-99); MONOCYTES # (AUTO) 2.1 (0.2-0.8); MONOCYTES % 12.2 % (4.4-11.3); NEUTROPHILS # (AUTO) 13.3 (2.1-6.9); NEUTROPHILS % 77.6 % (38.7-80.0); PLATELET COUNT 193 x10e3/uL (140-360); RED BLOOD COUNT 2.68 x10e6/uL (3.6-5.1); RED CELL DISTRIBUTION WIDTH 14.3 % (11.7-14.4)
[2020-01-31] MEDS: PANTOPRAZOLE SOD 40 MG TABEC PO SCH (07:42)
[2020-01-31 07:52] LABS: ALBUMIN 2.3 g/dL (3.5-5.0); ALBUMIN/GLOBULIN RATIO 0.9 (0.8-2.0); ANION GAP 13.8 mmol/L (8-16); CALCIUM 7.8 mg/dL (8.4-10.2); CREATININE, SERUM 2.82 mg/dL (0.57-1.11); POTASSIUM 4.8 mmol/L (3.5-5.1)
[2020-01-31] MEDS: ATENOLOL 50 MG TAB PO SCH (08:18)
[2020-01-31 08:20] VITALS: BP 99/60
[2020-01-31] MEDS: DEXTROSE 5%/0.45% SOD CHL 1,000 ML IV SCH ×2 (08:57→16:51)
[2020-01-31] MEDS: MEROPENEM 500MG/ NS 50ML 50 ML IV SCH ×2 (08:57→21:26)
[2020-01-31] MEDS ORDERED: CEFAZOLIN SOD 1 GM VIAL IV SCH (09:00)
[2020-01-31 09:48] VITALS: BP 99/60
--- NOTE | 2020-01-31 16:06 | NUR ---
Nutrition Screen Note RD Recommendation for Physician: -Recommend advancing to cardiac diet when medically appropriate Plan of Care: RD following, monitoring for tolerance and adequacy Nutrition reason for involvement: length of stay Primary Diagnose(s): bladder cancer, hematuria, renal insufficiency, solitary right kidney, right ureteral obstruction PMH: renal cell carcinoma s/p left nephrectomy, bladder cancer, HTN, thyroid disease, cholecystectomy, nephrectomy, splenectomy Ht: 64 in Wt:321 lb BMI: 55.1 kg/m2 IBW:[address] Assessment: (01/31/20) Chart reviewed. Labs and meds reviewed. Pt is a 54 year old female admitted with bladder cancer, hematuria, renal insufficiency, solitary right kidney, and right ureteral obstruction. Pt had a cystectomy, lymph node dissection, hysterectomy flexible cysto, and ileal conduit urinary diversion procedure yesterday per chart. Pt is currently NPO. It is recorded that pt consumed 50-100% of liquid diet on 01/28 and 75-100% of meals while on cardiac diet on 01/25. Per weight history, pt weighed 276 lbs in November 2019. Pt has weights ranging from 282-321 lbs during this admission; therefore, weight loss does not appear evident. Recommend advancing diet when medically appropriate. Will continue to monitor. Current Diet: NPO Malnutrition Evaluation (01/31/20) The patient does not meet criteria for a specified degree of malnutrition at this time. Will re-evaluate at follow-up as appropriate. Diet Education Needs Assessment: Diet education not indicated at this time since pt is NPO Nutrition Care Level: low Signed: Hermelinda Mcneal, RD, LD
--- NOTE | 2020-01-31 16:35 | NUR ---
patient given small amount of ice chips. okay to have small amounts of ice per Dr. rios and Dr. lopez.
--- NOTE | 2020-01-31 16:55 | Progress Note ---
DATE: 01/31/2020 Today, the patient is afebrile, doing well. She is complaining of her NG tube, her dry mouth and her pain in her neck due to the NG tube. I told her that she could not have the NG tube out because of her ileal anastomosis. We discussed ice chips and agreed to have some ice chips only to wet the mouth, but not to swallow ice chips and only minimal amount. She has quite a bit of bile since yesterday, so I told her that definitely things are not going through her intestines yet and that she will take 3 to 5 days with an NG tube, and Dr. Bernal will be managing the NG tube as to when it will come out or not. Otherwise, the dressing is intact. There is no bleeding. Her urine output is excellent. Her creatinine is coming down. I would expect that by Monday or that her creatinine would be the same as or better than on admission that was 1.9, prior to surgery was 3.05. Her potassium and sodium are normal. Otherwise, her blood pressure is steady. Her hemoglobin is 7.4 and hematocrit was 24.8. We actually lost less than the 500 mL of blood that I thought that we had lost and this is with dilutional effect of 3.5 L of crystalloids that were given intraoperatively. Mario-Carballo, the one draining the ileal loop has put out only 7 mL. The one draining the pelvis, was draining 25 mL pretty much serosanguineous fluid, more or likely compatible with peritoneal fluid. There is no vaginal bleeding at this point, although I expected some because I had to remove most of her vagina and on closing up and reconstructing the small pouch that she has, I had to put in a Surgicel because of some bleeding from the wall of the area around the anterior aspect of the vagina right underneath the symphysis pubis. So at this point, she is doing well and is afebrile. We will continue the treatment as we are doing now. Tomorrow, she will be out of bed and we will start some incentive spirometer. MD SINDY Payton/ROSANA /[id number]
[2020-01-31 20:10] VITALS: BP 106/73
[2020-01-31 21:00] VITALS: BP 106/73
[2020-02-01] VITALS (9 sets, daily range): BP systolic 95–124; BP diastolic 66–76
--- NOTE | 2020-02-01 00:32 | Progress Note ---
DATE: 01/31/2020 SUBJECTIVE: Very dry mouth. OBJECTIVE: VITAL SIGNS: Temperature 97.7, pulse 80, respiratory rate 18, blood pressure 106/73. GENERAL: No acute distress. SKIN: No rash. HEENT: NG tube in place. LUNGS: Clear anteriorly. HEART: Regular rate and rhythm. Normal S1 and S2. GI: Abdomen is soft. Decreased breath sounds. NEUROLOGIC: Alert and oriented x3. PSYCHIATRIC: No hallucination. LABORATORY DATA: White count 17, hemoglobin 7.4, platelet count 193. Creatinine 2.8. ASSESSMENT AND PLAN: 1. Bladder cancer, status post resection, postop day #1. Continue NG tube suctioning and n.p.o. I have discussed with Dr. Slaughter. 2. Acute kidney injury due to obstruction. It is slowly getting better now. 3. Morbid obesity. 4. extended-spectrum beta-lactamase Escherichia coli in the urine. We will continue renal dose meropenem. 5. Hypertension. Now, her blood pressure is borderline low. Discontinue her hydralazine. Decrease atenolol to just 25 mg. 6. Paroxysmal atrial fibrillation. We will continue low-dose atenolol if her blood pressure tolerates. 7. Hypothyroidism. 8. Gastrointestinal/deep venous thrombosis prophylaxis. No chemical deep venous thrombosis prophylaxis due to recent surgery and also anemia. MD DOMINGO Valerio/ROSANA /[id number]
[2020-02-01] MEDS: SODIUM CHLORIDE 0.9% 250ML IRRIG IR SCH ×6 (01:05→22:30)
[2020-02-01] MEDS: ONDANSETRON HCL INJ 2MG/ML 2ML 2 MG/ML VIAL IV PRN (02:57)
[2020-02-01] MEDS: DEXTROSE 5%/0.45% SOD CHL 1,000 ML IV SCH ×2 (02:57→13:00)
[2020-02-01] MEDS: PANTOPRAZOLE SOD 40 MG TABEC PO SCH (08:01)
[2020-02-01] MEDS: MEROPENEM 500MG/ NS 50ML 50 ML IV SCH ×2 (08:01→21:00)
[2020-02-01] MEDS ORDERED: ATENOLOL 50 MG TAB PO SCH (09:00)
--- NOTE | 2020-02-01 09:34 | NUR ---
patient assisted out of bed and into chair. sitting up at this time. linens changed. doing well today.
[2020-02-01 10:28] LABS: BASOPHILS # (AUTO) 0.1 (0.0-0.1); BASOPHILS % 0.3 % (0.0-1.0); EOSINOPHILS # (AUTO) 0.1 (0.0-0.4); EOSINOPHILS % 0.6 % (0.0-6.0); HEMATOCRIT 27.6 % (34.2-44.1); HEMOGLOBIN 8.2 g/dL (12.0-16.0); LYMPHOCYTES # (AUTO) 1.7 (1.0-3.2); LYMPHOCYTES % 7.9 % (18.0-39.1); MEAN CORPUSCULAR HEMOGLOBIN 27.7 pg (28-32); MEAN CORPUSCULAR HGB CONC 29.7 g/dL (31-35); MEAN CORPUSCULAR VOLUME 93.2 fL (81-99); MONOCYTES # (AUTO) 1.9 (0.2-0.8); MONOCYTES % 9.2 % (4.4-11.3); NEUTROPHILS % 81.3 % (38.7-80.0); PLATELET COUNT 220 x10e3/uL (140-360); RED BLOOD COUNT 2.96 x10e6/uL (3.6-5.1); RED CELL DISTRIBUTION WIDTH 14.4 % (11.7-14.4)
[2020-02-01 10:48] LABS: ALBUMIN 2.2 g/dL (3.5-5.0); ALBUMIN/GLOBULIN RATIO 0.6 (0.8-2.0); ANION GAP 13.2 mmol/L (8-16); CALCIUM 8.2 mg/dL (8.4-10.2); CREATININE, SERUM 1.89 mg/dL (0.57-1.11); POTASSIUM 4.2 mmol/L (3.5-5.1)
[2020-02-01] MEDS: PANTOPRAZOLE 40 MG 10ML VIAL IV SCH (13:39)
--- NOTE | 2020-02-01 15:00 | NUR ---
patient converting from nsr into afib at 120-150's for brief moments then back to nsr. patient states she feels fine, no complaints of dizziness. dr. George made aware and orders entered.
[2020-02-01] MEDS: METOPROLOL TARTRATE INJ 1 MG/ML VIAL IV SCH ×3 (15:50→22:00)
--- NOTE | 2020-02-01 16:50 | Operative Report ---
DATE OF PROCEDURE: 01/30/2020 SURGEON: Rahul Slaughter MD PREOPERATIVE DIAGNOSIS: Bladder cancer. POSTOPERATIVE DIAGNOSIS: Bladder cancer. OPERATIONS PERFORMED: Hysterectomy with bilateral salpingo-oophorectomy, radical cystectomy with partial vaginectomy, and ureteral ileal anastomosis with ureteral stenting and cystoscopy. BELT AND LINK SHOP SUPERVISOR: Dr. Bernal did an exploratory laparotomy and ileal conduit. He also was my hotel administrative assistant on my surgery, so I have to put him in also as hotel administrative assistant and co-surgeon. ESTIMATED BLOOD LOSS: Approximately 500 mL. COUNTS: Sponge, needle count, instrument count were correct. ANESTHESIA: General intubated by staff anesthesiologist. HISTORY: This is a 54-year-old female who four months ago was seen with gross hematuria. She was found to have a large left renal tumor. At that time, she had a 1-2 cm bladder mass. We did a nephrectomy first on the left side, followed by a resection of the bladder tumor that was found to have invasive to the muscle and poorly differentiated transitional cell. The patient also was discovered to have atrial fibrillation, to have cardiac evaluation was sent to [facility] because of COVID-19 could not see her for surgery. I sent her also to [facility] also for surgery and the same thing happened. The patient did call me with severe bleeding and she was brought into the emergency room at [facility] for definitive treatment. I did ask Dr. Bernal to see her and to help me with the surgery as well with the creation of an ileal loop to be able to do the ureteral anastomosis from the remaining solitary right kidney. CYSTOSCOPIC FINDINGS: The patient had a large tumor, much larger than when I did a TURBT only just three months ago. This tumor now seem to be around the area of the trigone of the bladder neck, although three months ago I did biopsies and biopsies of these areas were negative. After the cystoscopy, my decision was that the patient needed to have a urethrectomy as well. The patient is obese and short in stature. A very difficult operation was encountered. DESCRIPTION OF PROCEDURE: The patient was in the supine position. After the cystoscopy, I left the Bowers catheter in place. At this point, the patient's legs were placed on stirrups so that I could gain access to the vagina to guide me on the vaginectomy. Dr. Slaughter did an exploratory laparotomy and after he made the incision, explored the abdomen, checked the liver, the omentum, the terminal ileum, all were free of any metastatic disease. We proceeded to then pack the abdominal contents up into the abdomen, put the patient in Trendelenburg and placed a Bookwalter retractor in place with multiple retracting arms to be able to look at the pelvis, identify the uterus. I had wrapped the uterus with two Allis clamps at the fundus, pulled it up, and the uterus appeared to be fixed. Various little spaces were found for me to work in the area between the colon and the reflexion of the peritoneum, the pouch of Colton. Looking at the uterine vessels, the perivesical fat appeared to be retracted into this area and I could not mobilize the uterus very well, so my decision was to start at the top. I was able to see the round ligaments. I traced the round ligaments on the right side all the way down to the noticed in this area, there was tissue that appeared to be hard. I expected that this was also a lymph node, but left it intact until after the cystectomy so that I could remove the packet of lymph nodes on the external iliac artery, vein, and the obturator fossa. So what I did was I clamped the round ligament at that point, divided. I also divided the infundibular pelvic ligaments. I was able to free the ovaries without any problem. I my decision was then to remove the fallopian tube with the ovary, which I did. I went all the way down to the fundus of the uterus found the takeoff of the fallopian tube and now I clamped and ligated that also with 2-0 Vicryl. I sent that separate and did the same on the left side. At this point, attention was placed to the cul-de-sac with the rectal uterine pouch. It was difficult again to retract the uterus. It appeared to be stuck to that area, so at that point, I went up into the perineum, located the external iliac went to the common iliac and at the takeoff of the external and internal iliac, I found the ureter on the right side. The ureter was dilated since we already knew preop that there was hydroureteronephrosis due to the tumor causing a blockage in the bladder. At this point, I traced the ureter down into the pelvis. My idea was to try to dissect the umbilical artery to check the vesical artery and look at the most lower down area of the ureter, but this area was encased in hard fatty tissue. Therefore, what I did was I traced the ureter as far down as possible, transected it after I ligated it and sent the proximal end of the ureter in for frozen section. Frozen section was negative. There was no invasion of the tumor into the ureter. At that point, I freed up the ureter into the retroperitoneal area and obtained as much length of ureter as I could. At that point, my decision was then to cut the suture and allow the kidney to start draining since it was hydronephrotic, which I did. At that point, what I did was I intubated and later drained into a bag. At that point, I started working on the cul-de-sac, was able to place some Jordan's around the ovarian blood vessels and was able to ligate some of those ovarian blood vessels. It was difficult to get down farther down enough to open up to continue to do the dissection both on the right and the left side, so my decision was just to open up the vagina so that I could just take the anterior wall of the vagina with the cervix, the ureters and the bladder since everything was attached to each other. I could not develop the plane anteriorly between the bladder and the uterus. So, it appears to me that this was quite an advanced case of bladder cancer with probably the tumor going through the bladder wall and into the anterior aspect of the uterus. At this point, I placed a sponge on a stick in the vagina and found the dome of the vagina. At that point, I was able then to distinguish between the rectum and the vagina and I was able to separate the rectum for about a centimeter to 2 cm. At that point, while pushing on the sponge on the stick through the vagina, made an incision with the Bovie and I entered the vagina itself. The vagina had been previously prepped by me for about 10 minutes with Betadine soap and solution prior to start of the surgery. At this point, I developed a plane between the uterus and the vagina and using the PresentationTube fulgurator, I was able to fulgurate down the vagina it first on the right side all the way down the posterior wall of the vagina. I did the same on the opposite side on the left side and at that point, I felt like I had gotten to the bladder neck. At that point, I turned the attention anteriorly. I took down the tubal urethral ligaments and at that point on the left side by the levator ani muscle, I found the endopelvic fascia. I entered the endopelvic fascia both on the right and left side and again on the left side, I encounter more bleeding. I put multiple sutures down this area and I still had bleeding. Therefore, I packed it with Surgicel. Continuing with the dissection using the Covidien, I cut all the way down through the endopelvic fascia, finding the urethra. At this point, I work myself anteriorly with Metzenbaum scissor dissection to open up completely the endopelvic fascia and circumscribe the urethra. At this point with the cotton, I went through it, thus taking the attachments of the urethra off the symphysis pubis. The vagina was then opened anteriorly. At this point, I wrapped the Bowers catheter tied and cut it so that I could have traction. Right at the bladder neck, the tissues were all encased together. Therefore, I decided also take the anterior aspect of the vagina over this area with the specimen. I used the Covidien to fulgurate through there and took the urethra. All of the anterior wall of the vagina, the cervix, the uterus out as one piece. I irrigated the open vagina so that anteriorly I had no vaginal left. There was bleeding out of the left side of the pelvic brim. I felt that this was probably one of the obliterated umbilical arteries on the left side and what I did at this point was to take Vicryl, make a rectangular piece of Surgicel and suture it to the posterior aspect of the symphysis pubis where I could get a suture through and then I sutured it through the levator ani in the endopelvic fascia at that point. Once I had tied it, the bleeding stopped because of the pressure that was placed in. At this point, copious irrigation was made with sterile water. Any bleeders were electrofulgurated. Closing the vagina was interesting. I like I said, anteriorly, I had no vagina at all, so I checked the posterior wall of the vagina over the rectum. I freed up some of the vagina off the rectum as much as I could and then I sutured that vagina to the periosteum of the symphysis pubis very much anteriorly and laterally and sutured it to the remaining ligament and endopelvic fascia to the levator ani muscle, that way, I closed the vagina to the exterior. I did leave the bolstering Surgicel that I put in on the outside. Obviously, that will come off later. It was very important to me to stop the bleeding from this area. Once I had so that I had stopped it, my decision was to leave it outside on the vagina. That will need fall off or later on in the next 3-4 weeks once the Surgicel starts to disintegrate and the Vicryl will also disintegrate, I can take it off in the office. At this point, I examined the external iliac artery. It was covered with fat. One of the interesting things at this point was a very large mass on the right side of the pelvic wall that was approximately 3 to 4 cm. At first, I thought it was at the inferior vesical artery that had formed a hematoma since this area I could not see at all doing the excision of the uterus and the bladder, but upon close examination, it turned out to be a large lymph node. I began my pelvic lymphadenectomy over the artery, traced it down to the where I also found the last segment of my dissection of the round ligament. I dissected this area with the mass that I felt during previous dissection and after it came off my decision was not to continue over the vein. I dissected off the lymph node that was very large underneath the vein after I dissected to make sure that I have found the obturator nerve. I defined the obturator nerve and finally was able to trace it down to the psoas muscle, so the obturator nerve, let the obturator artery intact in all that packet of lymph nodes intact. My decision was to remove the very large lymph nodes and I did and send it for frozen section. While waiting on the frozen section, Dr. Bernal did the ileal conduit and at that point, the frozen section of the lymph node came back metastatic disease. I saw no increased survival of this patient at this point to continue a very difficult dissection of the lymph nodes all the way to the bifurcation of the iliacs, so at that point, what I did was I did a lymph node sampling of the left side. It was immediately again noted that there were multiple lymph nodes approximately a centimeter that was easily palpable. I removed these lymph nodes and also sent it for permanent section. At that point, I passed an 8-Trinidadian ureteral stent for ileal loops which is extra long. I placed a guidewire inside of it, place it into the distal end of the ileum and pushed it all the way to the closed end of the proximal ileum. At that point, I made a small rent through the serosa of the ileum using the Bovie. At that point, I fishmouth the ureter and using 4-0 Monocryl, I sutured one corner of the ureter to the ileum. At that point, I took the ureteral stent and placed it in the ureter and pushed it all the way up to the kidney removing the guidewire. Also at that point, so that there was a good diuresis of the ureter through the ureteral stent as well. I then took the other corner of the ureter and suture it to the ileum. I ran the posterior aspect of the anastomosis with the 4-0 Monocryl and then I made the final closure anteriorly or medially to the ureter to the ileum, doing the same thing a running suture of 4-0 Monocryl. At that point, I looked to make sure that it was watertight. There was quick diuresis and I could see it even urine in the ileum. There was also urine coming out of the ureteral the ureteral stent. At that point, I used some anchoring sutures. I took the periureteral tissue and sutured it to the ileum. I put four sutures to make sure there was at least the least amount of tension on the anastomosis to prevent ureteral scarring and stenosis. I had plenty of ureter. I looked again to make sure there was no tension and I had plenty of ureter having absolutely no tension in the anastomosis. At this point, we irrigated the pelvic cavity. There was no bleeding. I checked the right external iliac. There was no bleeding from that area. At this point, on the left side, I looked in the pelvis for the segment of ureter that was left from the previous left nephrectomy, found it, and took that segment out and send it for pathological specimen. At this point, I placed a Mario-Carballo drain in the right abdomen, putting it through the abdomen, through the fat, through the perineum into the right lateral gutter next to the ureteral anastomosis, sutured it to the skin and placed a bulb into that area. I also on the left side on the left lower quadrant, placed another Mario-Carballo into the pelvic area, right on top of the vagina and left that in place. At this point, I turned the case over to Dr. Bernal to finish out the conduit and bring it out through the skin. Before that, we asked the anesthesiologist to placed an NG tube into the abdomen and Dr. Bernal checked to make sure the NG tube was in the appropriate position in the gastric cavity. Dr. Bernal then did the closure of the abdomen. He will be dictating that part of the procedure. As stated, he was my hotel administrative assistant throughout the case. After the patient was closed, I noticed that there was excellent urine output on the ileal bag. The patient had received 3.5 L of crystalloids. NG tube in place. She was extubated and taken to the recovery room in satisfactory condition. At that point, I went outside and talked to the patient's mother because of COVID-19, the mother could not see the patient. I explained the operation to her. I told her that final pathology will be available in the next week or two, probably after the patient was discharged from the hospital. I told her that the uterus had been removed without any other incident. At this point, I discussed with the patient's mother that the pathologist will be had doing a report probably that would not be available for one or two weeks and that probably we will have the final report once the one the patient is discharged. I discussed with her that the operation that was done that the bladder, the uterus, and the vagina has had plan has been removed. I did not tell her at that point that the lymph nodes were positive on frozen section. I will not have the final pathology report as to the extent of it. I will at that point, talk to the patient about it. I will also discuss the case with her oncologist, Dr. Palacio. We have planned also to give the patient adjuvant chemotherapy and Dr. Bernal had discussed Port-A-Cath with the patient once she has she has recuperated enough to undergo surgery, I believe that the renal function will be very good to have chemotherapy. Rahul Slaughter MD RRG/MODL /[id number] cc: Robert Bernal MD
--- NOTE | 2020-02-01 17:01 | NUR ---
patient still sitting up in chair. states she feels better out of bed and would like to keep sitting up. preforming IS as instructed hourly. new suction canister set up, CHRISTINE drains emptied, goyal emptied.
[2020-02-01] MEDS: HYDROMORPHONE 0.2MG/ML-SOD CHL 30ML PCA SYRINGE IV PRN (22:45)
--- NOTE | 2020-02-01 23:25 | Progress Note ---
DATE: 02/01/2020 SUBJECTIVE: Dry mouth is better. Postsurgical abdominal pain is controlled with Dilaudid PLEATING SUPERVISOR pump. OBJECTIVE: VITAL SIGNS: Temperature 98.6, pulse 88, respiratory rate 20, blood pressure 102/74. GENERAL: No acute distress. SKIN: No rash. HEENT: NG tube in place. LUNGS: Clear. HEART: Regular rate and rhythm. Normal S1, S2. GI: Abdomen is soft. Not distended. NEUROLOGIC: Alert and oriented x3. PSYCHIATRIC: No hallucination. LABORATORY DATA: Laboratory peters, white count 20.9, hemoglobin 8.2, platelet count 240. Creatinine 1.89, potassium 4.2. ASSESSMENT AND PLAN: 1. Bladder cancer, postoperative day #2 for radical cystectomy. We will continue NG tube suction and n.p.o. and IV fluid. Continue Dilaudid PLEATING SUPERVISOR pump. We will monitor reactive leukocytosis. The patient is afebrile. 2. Acute kidney injury due to obstruction, resolving. 3. Morbid obesity. 4. Extended spectrum beta-lactamase Escherichia coli in the urine. We will continue renal dose meropenem. 5. Paroxysmal atrial fibrillation. We will start low-dose IV metoprolol as her blood pressure will tolerate it, currently on the lower side. 6. Gastrointestinal and deep vein thrombosis prophylaxis. Protonix IV and no chemical DVT prophylaxis due to recent surgery and anemia. MD DOMINGO Valerio/ROSANA /[id number]
[2020-02-02] VITALS (9 sets, daily range): BP systolic 91–131; BP diastolic 44–75
[2020-02-02] MEDS: DEXTROSE 5%/0.45% SOD CHL 1,000 ML IV SCH ×3 (01:15→19:11)
[2020-02-02] MEDS: METOPROLOL TARTRATE INJ 1 MG/ML VIAL IV SCH ×6 (02:48→22:13)
[2020-02-02] MEDS: SODIUM CHLORIDE 0.9% 250ML IRRIG IR SCH ×6 (02:48→22:13)
--- NOTE | 2020-02-02 07:00 | NUR ---
BEDSIDE SHIFT REPORT RECEIVED FROM CONCERT OR LECTURE HALL MANAGER RN. PT DENIES NEEDS AT THIS TIME.
--- NOTE | 2020-02-02 07:19 | NUR ---
Patient endorsed to next shift for continuity of care.
[2020-02-02] MEDS: PANTOPRAZOLE 40 MG 10ML VIAL IV SCH (09:13)
[2020-02-02] MEDS: MEROPENEM 500MG/ NS 50ML 50 ML IV SCH ×2 (09:13→21:51)
[2020-02-02 09:24] LABS: BASOPHILS # (AUTO) 0.1 (0.0-0.1); BASOPHILS % 0.4 % (0.0-1.0); EOSINOPHILS % 5.7 % (0.0-6.0); HEMOGLOBIN 7.4 g/dL (12.0-16.0); LYMPHOCYTES # (AUTO) 2.5 (1.0-3.2); LYMPHOCYTES % 14.2 % (18.0-39.1); MEAN CORPUSCULAR HEMOGLOBIN 27.4 pg (28-32); MEAN CORPUSCULAR HGB CONC 29.6 g/dL (31-35); MEAN CORPUSCULAR VOLUME 92.6 fL (81-99); MONOCYTES # (AUTO) 1.7 (0.2-0.8); MONOCYTES % 9.6 % (4.4-11.3); NEUTROPHILS # (AUTO) 12.4 (2.1-6.9); NEUTROPHILS % 69.6 % (38.7-80.0); PLATELET COUNT 233 x10e3/uL (140-360); RED CELL DISTRIBUTION WIDTH 14.2 % (11.7-14.4)
[2020-02-02 09:50] LABS: ALBUMIN/GLOBULIN RATIO 0.6 (0.8-2.0); ANION GAP 9.8 mmol/L (8-16); CREATININE, SERUM 1.74 mg/dL (0.57-1.11); POTASSIUM 3.8 mmol/L (3.5-5.1)
[2020-02-02 10:51] LABS: EOSINOPHILS % (MANUAL) 5 % (0-7); HYPOCHROMASIA SLIGHT; LYMPHOCYTES % (MANUAL) 13 % (19-48); MONOCYTES % (MANUAL) 7 % (3.4-9.0); NEUTROPHILS % (MANUAL) 75 % (40-74)
--- NOTE | 2020-02-02 11:26 | Progress Note ---
DATE: 02/02/2020 SUBJECTIVE: Today, the patient remains afebrile, doing well. OBJECTIVE: VITAL SIGNS: Her oxygen saturation is 100 on nasal cannula. She has also had room air and also has been 100. Blood pressure remains stable between 98-44 and 91-51. Her pulses have been steady at 84. LABORATORY DATA: The labs are good. Sodium is 141, potassium is 3.8. Her BUN now is 15 and her creatinine is 1.7, which is the lowest it has been since the patient was admitted to the hospital. Her hemoglobin is 7.4, hematocrit of 25, which has been stable since surgery. Her output is excellent, yellow, clear. She has only had 10 mL of Mario-Carballo output, that is probably this peritoneal fluid. The patient complains of back of the throat discomfort, ear discomfort, wants to have her NG tube out, but I told her that I would have to wait until Monday. Her NG tube output today is minimal as compared to yesterday. I am sure that Dr. Bernal will re-evaluate her tomorrow and see if he can clamp the tube. Other than that, her stoma looks excellent, is pink. Then, the incision is intact. There is no bleeding or spots of bleeding on the dressing. PLAN: Chloraseptic spray back of the throat p.r.n. and we will check her again tomorrow. Tomorrow, we will transfer her to the floor and have her ambulate. She is up in the chair today, doing well. MD SINDY Payton/THERESEL /[id number]
[2020-02-02] MEDS ORDERED: CHLORASEPTIC SPRAY 177 ML BTL MM PRN (11:30)
--- NOTE | 2020-02-02 16:00 | NUR ---
PT PULLED OUT NG TUBE WHILE SLEEPING. DR. Rose Mary NIEVES CALLED. GAVE ORDER FOR REGLAN ONCE, STRICT NPO AND LEAVE NG TUBE OUT.
[2020-02-02] MEDS ORDERED: METOCLOPRAMIDE HCL 10 MG/2ML VIAL IV NR (18:30)
--- NOTE | 2020-02-02 19:45 | NUR ---
patient is on occupational therapy assist pump, dilaudid. Inspected and stable.
[2020-02-03] VITALS (8 sets, daily range): BP systolic 94–125; BP diastolic 57–66
--- NOTE | 2020-02-03 01:20 | Progress Note ---
DATE: 02/02/2020 SUBJECTIVE: Doing better. However, her NG tube fell out by itself. OBJECTIVE: VITAL SIGNS: Temperature 98.8, pulse 98, respiratory rate 22, blood pressure 98/60. GENERAL: No acute distress. SKIN: No rash. HEENT: Oropharynx is dry. LUNGS: Clear. HEART: Regular rate and rhythm. Normal S1, S2. GI: Abdomen is soft. Decreased breath sounds. NEUROLOGIC: Alert and oriented x3. PSYCHIATRIC: No hallucination. LABORATORY VALUES: White count 17.8, hemoglobin 7.4, platelet count 233, and creatinine 1.74. ASSESSMENT/PLAN: 1. Bladder cancer. Postop day #3 for radical cystectomy. We will continue Dilaudid ELECTRIC MOTOR MECHANIC pump. Her reactive leukocytosis is getting better. 2. Acute kidney injury due to obstruction. Her creatinine is getting better. 3. Morbid obesity. 4. Extended spectrum beta-lactamase Escherichia coli in the urine. We will continue renal dose, meropenem. 5. Paroxysmal atrial fibrillation. We will continue IV metoprolol, until she can take her atenolol. 6. Gastrointestinal and deep vein thrombosis prophylaxes. Protonix IV and no chemical DVT prophylaxis due to recent surgery and anemia. MD DOMINGO Valerio/ROSANA /[id number]
[2020-02-03] MEDS: METOPROLOL TARTRATE INJ 1 MG/ML VIAL IV SCH ×6 (02:00→22:12)
[2020-02-03] MEDS: SODIUM CHLORIDE 0.9% 250ML IRRIG IR SCH ×4 (02:00→14:00)
[2020-02-03] MEDS: DEXTROSE 5%/0.45% SOD CHL 1,000 ML IV SCH ×2 (04:45→14:57)
--- NOTE | 2020-02-03 06:45 | NUR ---
Patient endorsed to next shift for continuity of care.
[2020-02-03] MEDS: ONDANSETRON HCL INJ 2MG/ML 2ML 2 MG/ML VIAL IV PRN ×2 (07:53→16:56)
[2020-02-03] MEDS: PANTOPRAZOLE 40 MG 10ML VIAL IV SCH (08:53)
[2020-02-03] MEDS: MEROPENEM 500MG/ NS 50ML 50 ML IV SCH ×2 (08:53→20:41)
[2020-02-03] MEDS ORDERED: HYDROCODONE/APAP 7.5MG-325MG 1 EA TAB PO PRN (11:15)
[2020-02-03] MEDS ORDERED: BISACODYL 10 MG SUPP PR ONE (11:45)
--- NOTE | 2020-02-03 17:43 | NUR ---
RECEIVED REPORT FROM [facility] RN, MARION. PT COMING TO 101. INFORMED PT HAS ESBL POSITIVE (URINE). LIZBETH INFORMED, NO NEW ORDERS PER RN.
--- NOTE | 2020-02-03 18:29 | NUR ---
PT ARRIVED TO ROOM 101; RADIOLOGY AT BEDSIDE FOR XRAY. PT IN STABLE CONDITION.
--- NOTE | 2020-02-03 18:53 | NUR ---
WALKING ROUNDS PERFORMED, RECEIVED PT LAYING SEMI FOWLERS IN BED, AAOX3, RR EVEN AND NON-LABORED, ON ROOM AIR. DRESSING TO ANTERIOR ABD NOTED TO BE CDI. X2 CHRISTINE DRAINS TO ANTERIOR ABD NOTED TO BE INTACT DRAINING TO BULB SUCTION. PAPER LATCHER PUMP FOR PAIN MANAGEMENT, PAPER LATCHER BUTTON WITHIN REACH. LEFT PT LAYING SEMI FOWLERS IN BED, BED IN LOW LOCKED POSITION, SIDE RAILS UPX2, CALL LIGHT AND PHONE WITHIN REACH.
--- NOTE | 2020-02-03 19:05 | NUR ---
CHANGE OF SHIFT REPORT GIVEN TO PM NURSE. PT AWAKE, ALERT, NO COMPLAINTS AT THIS TIME, IN STABLE CONDITION.
--- NOTE | 2020-02-03 20:13 | Diagnostic Imaging Report ---
EXAM: Abdomen Radiograph 1 View(s) INDICATION: check position of right double j COMPARISON: CT abdomen on 01/25/2020 FINDINGS: There are drains projected over the right lower quadrant and left pelvis. Visualization of the right double-J stent is limited due to overlying bowel gas. However, it appears coiled in the right lower quadrant and terminates within the pelvic inlet. There is diffuse dilated large and small bowel loops. Post surgical changes of the soft tissues with multiple nicola projecting over the left pelvis. No pneumoperitoneum. No acute osseous abnormality. Degenerative changes in the lumbar spine and pelvis. IMPRESSION: 1. Limited evaluation of the right double-J stent which appears coiled in the right lower quadrant and terminates within the pelvic inlet. Recommend further evaluation with noncontrast CT of the abdomen/pelvis. 2. Diffuse dilatation of small and large bowel loops, most likely post surgical ileus. 3. Surgical drains as above. Signed by: Tino Posey MD on 02/03/2020 8:10 PM
[2020-02-03 20:55] LABS: BASOPHILS % 0.2 % (0.0-1.0); EOSINOPHILS # (AUTO) 0.7 (0.0-0.4); EOSINOPHILS % 6.3 % (0.0-6.0); LYMPHOCYTES # (AUTO) 1.9 (1.0-3.2); LYMPHOCYTES % 18.7 % (18.0-39.1); MEAN CORPUSCULAR HEMOGLOBIN 27.2 pg (28-32); MEAN CORPUSCULAR HGB CONC 30.1 g/dL (31-35); MEAN CORPUSCULAR VOLUME 90.4 fL (81-99); MONOCYTES % 9.7 % (4.4-11.3); NEUTROPHILS # (AUTO) 6.7 (2.1-6.9); NEUTROPHILS % 64.7 % (38.7-80.0); PLATELET COUNT 310 x10e3/uL (140-360); RED CELL DISTRIBUTION WIDTH 13.6 % (11.7-14.4)
[2020-02-03 20:59] LABS: HEMATOCRIT 22.6 % (34.2-44.1); HEMOGLOBIN 6.8 g/dL (12.0-16.0)
--- NOTE | 2020-02-03 21:02 | NUR ---
NOTIFIED MD PATEL OF CRITICAL HGB. NO NEW ORDERS AT THIS TIME. CONTINUE TO MONITOR PT AND RECHECK LABS IN AM.
[2020-02-03 21:10] LABS: ALBUMIN 1.9 g/dL (3.5-5.0); ALBUMIN/GLOBULIN RATIO 0.6 (0.8-2.0); ANION GAP 12.2 mmol/L (8-16); CALCIUM 7.6 mg/dL (8.4-10.2); CREATININE, SERUM 1.19 mg/dL (0.57-1.11); POTASSIUM 3.2 mmol/L (3.5-5.1)
--- NOTE | 2020-02-03 22:10 | NUR ---
MANAGER WASTEWATER DISCONTINUED PER MD ORDER. PT PAIN AT 2/10 TO ANTERIOR ABD. PT REPORTS WILL CALL FOR PAIN MEDICATION IF PAIN INCREASES.
[2020-02-04] VITALS (7 sets, daily range): BP systolic 109–130; BP diastolic 64–70
[2020-02-04] MEDS ORDERED: METOPROLOL TARTRATE INJ 1 MG/ML VIAL IV PRN (00:30)
[2020-02-04] MEDS ORDERED: POTASSIUM CHLORIDE 20MEQ/100ML 100 ML IV STA ×2 (00:35→11:24)
[2020-02-04] MEDS: DEXTROSE 5%/0.45% SOD CHL 1,000 ML IV SCH ×2 (00:45→05:39)
--- NOTE | 2020-02-04 01:00 | NUR ---
IV TO (R) AC, NOTED TO BE LEAKING WHEN FLUSHED. IC DISCONTINUED, CATHETER TIP INTACT. PRESSURE AND DRESSING APPLIED. (R)IJ CENTRAL LINE DRESSING CHANGED.
--- NOTE | 2020-02-04 02:01 | Progress Note ---
DATE: 02/03/2020 SUBJECTIVE: No dizziness. Ambulating awesome. OBJECTIVE: VITAL SIGNS: Temperature 98.4, pulse 78, respiratory rate 16, blood pressure 112/63. GENERAL: No acute distress. SKIN: No rash. LUNGS: Clear. HEART: Regular rate and rhythm. Normal S1 and S2. GI: Abdomen is soft. Positive bowel sounds. NEUROLOGIC: Alert and oriented x3. PSYCHIATRIC: No depression. LABORATORY DATA: White count 10, hemoglobin 6.8, platelet count 310, creatinine 1.19, potassium 3.2. KUB was consistent with postop ileus. ASSESSMENT/PLAN: 1. Bladder cancer. Postop day #4 for radical cystectomy. Plan per surgeons. 2. Acute kidney injury due to obstruction. Creatinine is normal now. We will repeat in the morning to make sure that this is not a lab error.. 3. Morbid obesity. 4. Anemia, since at this time, the patient is not symptomatic, we will see what her repeat hemoglobin is tomorrow. 5. Hypokalemia. We will replete. 6. Extended spectrum beta-lactamases Escherichia coli in the urine. We will continue renally dosed meropenem. 7. Paroxysmal atrial fibrillation. Since she is on clear liquid diet now, I can switch her IV metoprolol to p.o. atenolol. 8. Gastrointestinal and deep vein thrombosis prophylaxes. Hypertonic IV and no chemical deep vein thrombosis prophylaxis due to anemia. MD DOMINGO Valerio/ROSANA /[id number] REYES
[2020-02-04 06:38] LABS: BASOPHILS % 0.2 % (0.0-1.0); EOSINOPHILS # (AUTO) 0.7 (0.0-0.4); EOSINOPHILS % 7.1 % (0.0-6.0); HEMATOCRIT 23.9 % (34.2-44.1); HEMOGLOBIN 7.3 g/dL (12.0-16.0); LYMPHOCYTES # (AUTO) 1.7 (1.0-3.2); MEAN CORPUSCULAR HEMOGLOBIN 28.3 pg (28-32); MEAN CORPUSCULAR HGB CONC 30.5 g/dL (31-35); MEAN CORPUSCULAR VOLUME 92.6 fL (81-99); MONOCYTES # (AUTO) 0.9 (0.2-0.8); MONOCYTES % 9.4 % (4.4-11.3); NEUTROPHILS # (AUTO) 6.3 (2.1-6.9); NEUTROPHILS % 64.8 % (38.7-80.0); PLATELET COUNT 334 x10e3/uL (140-360); RED BLOOD COUNT 2.58 x10e6/uL (3.6-5.1); RED CELL DISTRIBUTION WIDTH 13.9 % (11.7-14.4)
[2020-02-04 07:01] LABS: ANION GAP 14.2 mmol/L (8-16); CALCIUM 7.8 mg/dL (8.4-10.2); CREATININE, SERUM 1.21 mg/dL (0.57-1.11); POTASSIUM 3.2 mmol/L (3.5-5.1)
--- NOTE | 2020-02-04 08:52 | Progress Note ---
DATE: SUBJECTIVE: Today, the patient is doing well. She is on the regular floor, had her NG tube removed by accident. Apparently, the patient stated that while asleep, the tube came out. I checked the output of the tubes. The one on the right side near the ureteroileal anastomosis only put out 5 mL in 24 hours. The one on the left, puts out more. The output is serosanguineous and probably is peritoneal fluid since her BUN and creatinine are the lowest had been even before admission. She tolerated liquids. One of the things is that I do not see the tube out of her ileal loop, the stent that goes up to her right kidney. I will recheck the KUB that was done last night. I have not seen this morning. We will take a look at it and see where this tube is located. We will recheck her CBC and complete metabolic panel again later today. RECOMMENDATIONS: The patient is to ambulate. We will remove her left Mario-Carballo probably tomorrow and we will see how she does. So far the patient doing well, has not had a fever and her vital signs are stable. MD SINDY Payton/ROSANA /[id number]
[2020-02-04] MEDS: MEROPENEM 500MG/ NS 50ML 50 ML IV SCH ×2 (10:30→21:00)
[2020-02-04] MEDS: ATENOLOL 50 MG TAB PO SCH (11:37)
[2020-02-04] MEDS: PANTOPRAZOLE 40 MG 10ML VIAL IV SCH (11:40)
[2020-02-04] MEDS: HYDROMORPHONE 1MG/1ML INJ IV PRN ×2 (11:56→20:50)
[2020-02-04] MEDS ORDERED: POTASSIUM CHLORIDE 20MEQ/100ML 100 ML IV ONE (15:30)
[2020-02-04] MEDS ORDERED: D5/.45NS KCL 40MEQ **PREMIX BAG 1000ML IV SCH (17:00)
[2020-02-04] MEDS ORDERED: D5/.45NS KCL 40MEQ 1,000 ML IV ONE (19:30)
--- NOTE | 2020-02-04 20:00 | NUR ---
PT IN BED, ILEOSTOMY LEAKING, CALL PLACED TO DR Fito NIEVES FOR INSTRUCTION, TELE ON PT, CHRISTINE DRAIN TO LEFT AND RIGHT OF ABD DRAINING, DRESSING ON PT ABD, SOME LEAKAGE AROUND TAPING, IV INFUSING TO RIGHT IJ, PT IS DISTRESSED AND UPSET THAT ILEOSTOMY IS LEAKING, STATES SHE HAS BEEN THROUGH A LOT AND IS TIRED AND READY TO GO HOME. VS WNL, CALL LIGHT IN REACH
--- NOTE | 2020-02-04 21:00 | NUR ---
SPOKE WITH DR Fito NIEVES ABOUT LEAKING AROUND ILEOSTOMY, INSTRUCTED TO REINFORCE NEEDED, HE WILL BE HERE TOMORROW TO CHANGE IT.
--- NOTE | 2020-02-04 22:26 | Progress Note ---
DATE: 02/04/2020 SUBJECTIVE: Ambulating. No dizziness. OBJECTIVE: VITAL SIGNS: Temperature 98.9, pulse 85, respiratory rate 18, and blood pressure 126/65. GENERAL: No acute distress. SKIN: No rash. LUNGS: Clear. HEART: Regular rate and rhythm. Normal S1 and S2. GI: Abdomen is soft. Normoactive bowel sounds. NEUROLOGIC: Alert and oriented x3. PSYCHIATRIC: No hallucination. LABORATORY DATA: Laboratory peters, hemoglobin 7.3. Creatinine 1.21 and potassium 3.2. ASSESSMENT AND PLAN: 1. Bladder cancer. Postop day #5 for radical cystectomy. The patient is tolerating clear liquid diet. 2. Acute kidney injury due to obstruction. This has resolved. 3. Morbid obesity. 4. Anemia. The patient's hemoglobin is stable. This is likely acute blood loss anemia. At this time, no indication for blood transfusion. 5. Hypokalemia. We will replete again. 6. Extended-spectrum beta-lactamase Escherichia coli in the urine. We will continue renally dosed meropenem. 7. Paroxysmal atrial fibrillation. We will continue low-dose p.o. atenolol and we will increase the dosage as her blood pressure can tolerate. 8. Gastrointestinal and deep venous thrombosis prophylaxis, Protonix IV and no chemical deep venous thrombosis prophylaxis due to anemia. MD DOMINGO Valerio/ROSANA /[id number]
[2020-02-05] VITALS (8 sets, daily range): BP systolic 101–117; BP diastolic 65–99
[2020-02-05] MEDS: DEXTROSE 5%/0.45% SOD CHL 1,000 ML IV SCH ×2 (03:30→14:25)
[2020-02-05 06:16] LABS: BASOPHILS % 0.5 % (0.0-1.0); EOSINOPHILS # (AUTO) 0.8 (0.0-0.4); EOSINOPHILS % 9.7 % (0.0-6.0); LYMPHOCYTES # (AUTO) 2.1 (1.0-3.2); LYMPHOCYTES % 26.9 % (18.0-39.1); MEAN CORPUSCULAR HEMOGLOBIN 27.4 pg (28-32); MEAN CORPUSCULAR HGB CONC 30.4 g/dL (31-35); MEAN CORPUSCULAR VOLUME 90.1 fL (81-99); MONOCYTES # (AUTO) 0.8 (0.2-0.8); MONOCYTES % 10.5 % (4.4-11.3); PLATELET COUNT 375 x10e3/uL (140-360); RED BLOOD COUNT 2.52 x10e6/uL (3.6-5.1); RED CELL DISTRIBUTION WIDTH 13.7 % (11.7-14.4)
[2020-02-05 06:23] LABS: HEMOGLOBIN 6.9 g/dL (12.0-16.0)
[2020-02-05 06:24] LABS: HEMATOCRIT 22.7 % (34.2-44.1)
[2020-02-05 06:31] LABS: ANION GAP 11.8 mmol/L (8-16); CALCIUM 7.9 mg/dL (8.4-10.2); CREATININE, SERUM 1.13 mg/dL (0.57-1.11); POTASSIUM 3.8 mmol/L (3.5-5.1)
--- NOTE | 2020-02-05 06:48 | NUR ---
CALL PLACED TO DR PATEL FOR CRITICAL HGB OF 6.9, WILL CONTINUE TO MONITOR, NO NEW ORDERS
--- NOTE | 2020-02-05 07:42 | NUR ---
ASSUMED CARE. AAOX3. ACYANOTIC. RESTING IN BED. NO DISTRESS NOTED. CALL LIGHT IN REACH. SIDE RAILS UP X2. BED LOW AND LOCKED.
[2020-02-05 08:54] LABS: HYPOCHROMASIA SLIGHT
[2020-02-05] MEDS: MEROPENEM 500MG/ NS 50ML 50 ML IV SCH ×2 (09:05→20:50)
[2020-02-05] MEDS: ATENOLOL 50 MG TAB PO SCH (09:05)
[2020-02-05] MEDS: PANTOPRAZOLE 40 MG 10ML VIAL IV SCH (09:05)
[2020-02-05] MEDS: HYDROMORPHONE 1MG/1ML INJ IV PRN ×2 (09:09→17:27)
[2020-02-05 09:31] LABS: % IRON SATURATION 8 % (15-50); IRON 20 ug/dL (50-170); TOTAL IRON BINDING CAPACITY 239 ug/dL (261-478); TRANSFERRIN 171 mg/dL (180-382)
[2020-02-05] MEDS ORDERED: MAGNESIUM SULFATE 2GM/50ML 50 ML IV ONE (10:00)
--- NOTE | 2020-02-05 18:22 | NUR ---
DR. Fito NIEVES CURRENTLY AT BEDSIDE PROVIDING EDUCATION OF CARE OF ILEOSTOMY TO PATIENT AND PATIENT'S MOTHER. PATIENT AAOX3. ACYANOTIC. NO DISTRESS NOTED. DENIES PAIN. EAGER TO LEARN. VERBALIZES UNDERSTANDING. DRESSINGS CHANGED BY PHYSICIAN. CALL LIGHT IN REACH. SIDE RAILS UP X2. BED LOW AND LOCKED.
--- NOTE | 2020-02-05 20:50 | NUR ---
PATIENT RESTING IN RECLINER AOX4, NO SIGNS OF RESPIRATORY DISTRESS NOTED. IV FLUIDS ARE RUNNING AT ORDERED RATED AND PATIENT VOICES PAIN AT A LEVEL OF 2, BUT REQUESTS NO MEDICATION AT THIS TIME. ILEOSTOMY IS PATENT AND FLOWING, CLEAR YELLOW NOTED. BOTH CHRISTINE DRAINS ARE PATENT AND NO DRAINAGE NOTED FROM MIDLINE INCISION. CALL LIGHT IS WITHIN EASY REACH, WILL CONTINUE TO MONITOR.
[2020-02-05] MEDS ORDERED: BISACODYL 10 MG SUPP PR ONE (21:00)
--- NOTE | 2020-02-05 22:05 | Progress Note ---
DATE: 02/05/2020 SUBJECTIVE: Her urostomy site is leaking. OBJECTIVE: VITAL SIGNS: Temperature 98.8, pulse 75, respiratory rate 18, and blood pressure 101/66. GENERAL: No acute distress. SKIN: No rash. LUNGS: Clear. HEART: Regular rate and rhythm. Normal S1 and S2. GI: Abdomen is soft and nondistended. NEUROLOGIC: Alert and oriented x3. PSYCHIATRIC: No hallucination. LABORATORY DATA: Laboratory peters, white count 7.7, hemoglobin 6.9, and platelet count 375. Creatinine 1.13. ASSESSMENT AND PLAN: 1. Bladder cancer. Postop day #6 for radical cystectomy. The patient is doing well. 2. Iron deficiency anemia. We will go ahead and start iron infusion. I have also discussed with Dr. Slaughter. We will continue to monitor her hemoglobin of 6.9, given the fact that she is asymptomatic. 3. Acute kidney injury due to obstruction. This has resolved. 4. Morbid obesity. 5. Extended-spectrum beta-lactamase Escherichia coli in the urine. We will continue renally dosed meropenem. 6. Paroxysmal atrial fibrillation. We will continue low dose p.o. atenolol and increase the dosage as her blood pressure can tolerate. 7. Gastrointestinal and deep venous thrombosis prophylaxis. Protonix IV and no chemical deep venous thrombosis prophylaxis due to anemia. MD DOMINGO Valerio/ROSANA /[id number]
[2020-02-05] MEDS: IRON SUCROSE 100 MG in SODIUM CHLORIDE 0.9% 100 ML 100 ML IV SCH (22:11)
[2020-02-06] VITALS: BP 116/62
[2020-02-06] MEDS: DEXTROSE 5%/0.45% SOD CHL 1,000 ML IV SCH (00:38)
[2020-02-06 04:00] VITALS: BP 103/67
--- NOTE | 2020-02-06 07:22 | NUR ---
ASSUMED CARE. AAOX3. RESTING IN BED. ACYANOTIC. NO DISTRESS. CALL LIGHT IN REACH. SIDE RAILS UP X2. BED LOW AND LOCKED.
[2020-02-06 07:56] VITALS: BP 106/65
[2020-02-06 08:00] VITALS: BP 106/65
[2020-02-06] MEDS: PANTOPRAZOLE 40 MG 10ML VIAL IV SCH (08:34)
[2020-02-06] MEDS: MEROPENEM 500MG/ NS 50ML 50 ML IV SCH (08:34)
[2020-02-06] MEDS: ATENOLOL 50 MG TAB PO SCH (08:35)
[2020-02-06] MEDS ORDERED: BISACODYL 10 MG SUPP PR ONE (09:00)
[2020-02-06 09:05] LABS: BASOPHILS % 0.3 % (0.0-1.0); EOSINOPHILS # (AUTO) 0.8 (0.0-0.4); EOSINOPHILS % 8.3 % (0.0-6.0); HEMATOCRIT 25.2 % (34.2-44.1); HEMOGLOBIN 7.4 g/dL (12.0-16.0); LYMPHOCYTES # (AUTO) 1.8 (1.0-3.2); LYMPHOCYTES % 18.4 % (18.0-39.1); MEAN CORPUSCULAR HEMOGLOBIN 27.1 pg (28-32); MEAN CORPUSCULAR HGB CONC 29.4 g/dL (31-35); MEAN CORPUSCULAR VOLUME 92.3 fL (81-99); MONOCYTES # (AUTO) 0.9 (0.2-0.8); MONOCYTES % 9.1 % (4.4-11.3); NEUTROPHILS # (AUTO) 6.1 (2.1-6.9); NEUTROPHILS % 62.7 % (38.7-80.0); PLATELET COUNT 427 x10e3/uL (140-360); RED BLOOD COUNT 2.73 x10e6/uL (3.6-5.1); RED CELL DISTRIBUTION WIDTH 13.9 % (11.7-14.4)
[2020-02-06 09:31] LABS: ANION GAP 12.7 mmol/L (8-16); CALCIUM 7.7 mg/dL (8.4-10.2); CREATININE, SERUM 1.14 mg/dL (0.57-1.11); POTASSIUM 3.7 mmol/L (3.5-5.1)
--- NOTE | 2020-02-06 09:58 | Progress Note ---
DATE: Today, the patient is doing well. Again, her vital signs are normal, blood pressure, pulse, and oxygenation. The output continues to be excellent. A clear urine. The patient also has a minimal degree of pain. Today, the patient complained of leaking out of her ileostomy bag. Her hemoglobin was 6.9, and her vital signs are stable. I discussed this with Dr. George, decision is to continue to monitor the patient since the vital signs are totally stable. Again, from yesterday to today her output out of the Nish on the right side near the ureteral ileal anastomosis was a serosanguineous fluid, 7 mL, there was a little more out of the left side that is on the bottom of the pelvis. I discussed with the patient and Dr. Bernal, and I had discussed ileostomy bag and he will change it today. She wants to have her mother presence, so she can also see the instructions, we will see if this is possible. She has had her diet increased by Dr. Bernal and we will continue to increase her full liquids to a regular diet. As per Dr. Bernal's orders. The patient has had no temperatures either. I discussed with the patient going forward and going home. We will think that or Monday discharge is appropriate at this time being that the patient is stable. MD SINDY Payton/MODL /[id number]
[2020-02-06] MEDS: HYDROMORPHONE 1MG/1ML INJ IV PRN (11:07)
[2020-02-06] MEDS: ONDANSETRON HCL INJ 2MG/ML 2ML 2 MG/ML VIAL IV PRN (11:13)
[2020-02-06 11:50] VITALS: BP 119/67
--- NOTE | 2020-02-06 12:43 | Progress Note ---
DATE: 02/06/2020 SUBJECTIVE: Today, the patient is afebrile. Vital signs are stable and normal. The right-sided drain drained approximately 5 mL in the last 8 hours. Therefore, I removed it without any problem. The other drain is still draining approximately 25-30 mL every shift, therefore that was staying in for now. The incision looks good. [place] are in place. Urine output is excellent. Stoma looks healthy and viable. She still has minimal bloody drainage out of the vagina. We discussed that as well. She has tolerated diet and has had a bowel movement. I discussed the case with Dr. Bernal and Dr. George and the decision is that we can send the patient home. I have given her a prescription for Keflex and tramadol for pain and I will see her again next week on Monday afternoon 2 o'clock to remove the nicola, also to remove the drain on the left side. I have asked the patient to maintain a diary of how much it comes out of the Mario-Carballo on the left side. I also asked the nurses to give her a staple remover to remove the nicola in the office next Monday. I have discussed the case with Dr. George and with Dr. Bernal and we all agreed that she can go home today. Thank you very much. MD SINDY Payton/MODL /[id number]
[2020-02-06] MEDS ORDERED: TRAMADOL HCL 50 MG TAB PO PRN (12:45)
--- NOTE | 2020-02-06 14:01 | NUR ---
ORDERS FOR HOME HEALTH CARE, SKILLED NURSE EVAL AND TREAT, HOME PT/OT EVAL AND TREAT REINFORCE OSTOMY TEACHING PROVIDE SUPPLIES FOLLOWS: [id number] UROSTOMY KIT #[id number] 1 3/4 INCH TINCTURE OF BENZOIN STOMAHESIVE PASTE AND BARRIER WIPES CHOICE LETTER SIGNED FOR [facility] AND PLACED ON CHART COPY OF CHOICE LETTER TO PT ALONG WITH MY BUSINESS CARE CALLED [facility] [phone] TO CONFIRM THEY ARE IN NETWORK WITH INSURANCE AND CAN SERVICE [place]; SPOKE WITH [employer]AF[employer] FAXED CLINICALS TO [phone], CONFIRMATION REC'D CONFIRMED PT'S ADDRESS AND PHONE NUMBER CORRECT ON FACE SHEET PT AWARE THAT HOME HEALTH WON'T START UNTIL AUTH OBTAINED FROM INS AND SUPPLIES WILL TAKE A FEW DAYS BEFORE COMING IN NURSE PROVIDING PT WITH EXTRA SUPPLIES TO TAKE HOME UNTIL THEN
[2020-02-06] MEDS ORDERED: ULTRAM50 MG PO (14:59)
[2020-02-06] MEDS ORDERED: KEFLEX500 MG PO (15:00)
[2020-02-06] MEDS: IRON SUCROSE 100 MG in SODIUM CHLORIDE 0.9% 100 ML 100 ML IV SCH (15:00)
--- NOTE | 2020-02-06 15:01 | NUR ---
DR. Yariel PATEL ORDERED PATIENT TO HAVE LAST DOSE OF VENOFER BEFORE DISCHARGE. ADMINISTERED AT 1500
[2020-02-06 16:07] VITALS: BP 102/63
--- NOTE | 2020-02-06 23:32 | Discharge Summary ---
FINAL DIAGNOSES: 1. Bladder cancer, status post cystectomy. 2. Hypertension. 3. Hypothyroidism, status post thyroid surgery. 4. Previous cholecystectomy. 5. Previous left nephrectomy for kidney cancer. 6. Previous splenectomy. CONSULTANTS: 1. Dr. Slaughter, urologist. 2. Dr. Robert Bernal, Surgery. PROCEDURES/STUDIES PERFORMED: 1. Cystectomy. 2. CT of the abdomen and pelvis. HISTORY: Per dictated H and P. HOSPITAL COURSE: This patient underwent cystectomy for bladder cancer. Today is postop day #7. The patient initially had an NG tube, that was discontinued. The patient is currently tolerating p.o. She was also found to have iron deficiency anemia. The patient received IV iron infusion. Her hemoglobin is around 7. No blood transfusion indicated given the fact that the patient is asymptomatic. The patient also had acute renal failure due to obstruction. This has resolved after surgery. Morbid obesity noted. ESBL E. coli UTI, treated with meropenem. The patient was continued on beta-seth for her paroxysmal atrial fibrillation. The patient was seen and examined today. It took 32 minutes total to discharge this patient. CONDITION ON DISCHARGE: Improved. DISCHARGE MEDICATIONS: Please see medication reconciliation form. FOLLOWUP: The patient will follow up with Dr. Slaughter in a week. She will also follow up with her oncologist. When everything is better, the patient will follow up with her wrapper hand as well. Yiching MD DOMINGO Carrillo/ROSANA /[id number]
[2020-02-07] MEDS ORDERED: PANTOPRAZOLE SOD 40 MG TABEC PO SCH (07:30)
--- OUTSIDE RECORDS SUMMARY | 2020-02-07 13:07 | XMS REPORT | Clinical Summary ---
Author Author [facility] Address Unknown Phone Unavailable Care Team Providers Care Animal Therapist Name Role Phone Pedro Trejo MD PCP Allergies Not on File Medications End Date Status Medication Sig Dispensed Refills Start Date 01/27/2020 nitrofurantoin, Take 1 14 capsule 0 macrocrystal-monohydrate, capsule (100 0 (Macrobid) 100 MG capsule mg total) by mouth 2 (two) times a day for 7 days. Active Problems No known active problems Encounters Care Team Description Date Type Specialty Cleve Caraballo MD Arrived 02/06/2020 Hospital Radiology Encounter Cleve Caraballo MD Arrived 02/06/2020 Hospital Radiology Encounter Cleve Caraballo MD Arrived 02/06/2020 Hospital Radiology Encounter Ghazal Rich MA 01/20/2020 Orders Only Urology Cleve Caraballo MD 01/13/2020 Documentation Urology Cleve Caraballo MD Malignant neoplasm of urinary bladder, u nspecified site (HCC) (Primary Dx) 01/09/2020 Orders Only Urology Cleve Caraballo MD 01/09/2020 Telephone Urology Cleve Caraballo MD Preop testing (Primary Dx); Malignant neoplasm of urinary bladder, unspecified site (HCC) 01/09/2020 Orders Only Urology Boaz Cullen MD 01/09/2020 Orders Only Urology Cleve Caraballo MD Canceled (Patient) 01/08/2020 Pre-Admit Pre-Admission Testi ng Testing Appointment 01/07/2020 Travel Cleve Caraballo MD Malignant neoplasm of urinary bladder, u nspecified site (HCC) 01/03/2020 Lab Lab Cleve Caraballo MD Urinary tract infection without hematuri a, site unspecified (Primary Dx); Malignant neoplasm of urinary bladder, unspecified site (HCC) 01/03/2020 Office Visit Urology 01/03/2020 Travel 01/02/2020 Travel after 01/24/2019 Social History Date Tobacco Use Types Packs/Day Years Used Never Assessed Sex Assigned at Date Recorded Female 01/02/2020 9:56 PM CDT Industry Job Start Date Occupation Not on file Not on file Not on file Travel End Travel History Travel Start No recent travel history available. Last Filed Vital Signs Not on file Plan of Treatment Health Maintenance Due Date Last Done Comments CERVICAL CANCER SCREENING 1987 BREAST CANCER SCREENING 2016 COLONOSCOPY SCREENING 2016 SHINGLES VACCINES (#1) 2016 INFLUENZA VACCINE 02/08/2020 Procedures Comments Procedure Name Priority Date/Time Associated Diag nosis URINE CULTURE Routine 01/03/2020 6:28 PM CDT ESTIMATED GFR Routine 01/03/2020 4:50 PM CDT COMPREHENSIVE METABOLIC Routine 01/03/2020 Malign ant neoplasm of PANEL 4:50 PM CDT urinary bladder, unspecified site (HCC) HC COMPLETE BLD COUNT Routine 01/03/2020 Malignan t neoplasm of W/AUTO DIFF 4:50 PM CDT urinary bladder, unspecified site (HCC) PROTHROMBIN TIME WITH INR Routine 01/03/2020 Diane gnant neoplasm of 4:50 PM CDT urinary bladder, unspecified site (HCC) PARTIAL THROMBOPLASTIN Routine 01/03/2020 Maligna nt neoplasm of TIME (PTT) 4:50 PM CDT urinary bladder, unspecified site (HCC) URINALYSIS SCREEN AND Routine 01/03/2020 Malignan t neoplasm of MICROSCOPY, WITH REFLEX 4:50 PM CDT urinary bladd er, TO CULTURE unspecified site (HCC) POC URINALYSIS DIPSTICK Routine 01/03/2020 Urinar y tract infection 3:06 PM CDT without hematuria, site unspecified CT ABD/PELVIC EXTERNAL Routine 12/23/2019 STUDY 12:[address] ABD/PELVIC EXTERNAL Routine 12/23/2019 STUDY 12:[address] ABD/PELVIC EXTERNAL Routine 11/26/2019 STUDY 5:19 PM CDT after 01/24/2019 Results * Urine culture (01/03/2020 6:28 PM CDT) Urine culture Escherichia coli BOLA isolate 10-5 cfu/ml VOODOO [facility] characteristics of this assay on this isolate were validated by the Microbiology Laboratory at [facility]. This source has not been approved by the U.S. Food and Drug Administration. The results are not intended to be used as the sole means for clinical diagnosis or patient management. The Microbiology Laboratory is authorized under the clinical Laboratory Improvement Amendments of 1988 (CLIA-88) to perform high complexity testing. This isolate is a entry level electrical engineer of ESBL (extended spectrum beta lactamase). This organism may be clinically resistant to penicillins, cephalosporins or aztreonam despite apparent in vitro susceptibility to some of these agents. (A) Comment: Specimen Information Specimen Source: Urine Specimen Site: Clean catch Specimen Urine Antibiotic Method Susceptibility Organism Ampicillin RASHARD >16 mcg/mL: Resistant Escherichia coli Amoxicillin/Clavulanate RASHARD 8/4 mcg/mL: Resistant Escherichia coli Amikacin RASHARD <=4 mcg/mL: Susceptible Escherichia coli Aztreonam RASHARD >16 mcg/mL: Resistant Escherichia coli Ceftazidime RASHARD >16 mcg/mL: Resistant Escherichia coli Ciprofloxacin RASHARD >2 mcg/mL: Resistant Escherichia coli Ceftriaxone RASHARD >32 mcg/mL: Resistant Escherichia coli Cefuroxime Sodium RASHARD >16 mcg/mL: Resistant Escherichia coli Cefazolin RASHARD >32 mcg/mL: Resistant Escherichia coli Cefepime RASHARD >16 mcg/mL: Resistant Escherichia coli Nitrofurantoin RASHARD <=16 mcg/mL: Susceptible Escherichia coli Gentamicin RASHARD >8 mcg/mL: Resistant Escherichia coli Imipenem RASHARD <=0.25 mcg/mL: Susceptible Escherichia coli Levofloxacin RASHARD >4 mcg/mL: Resistant Escherichia coli Meropenem RASHARD <=0.125 mcg/mL: Susceptible Escherichia coli Tobramycin RASHARD 8 mcg/mL: Resistant Escherichia coli Ampicillin/Sulbactam RASHARD >16/8 mcg/mL: Resistant Escherichia coli Trimethoprim/Sulfamethoxazole RASHARD <=0.5/9.5 mcg/mL: Susceptible Escherichia coli Tetracycline RASHARD <=1 mcg/mL: Susceptible Escherichia coli Ertapenem RASHARD <=0.125 mcg/mL: Susceptible Escherichia coli Tigecycline RASHARD <=0.5 mcg/mL: Susceptible Escherichia coli Cefotaxime RASHARD mcg/mL: Resistant Escherichia coli Cephalothin RASHARD mcg/mL: Resistant Escherichia coli Fosfomycin KB mm: Susceptible Escherichia coli Meropenem/Vaborbactam KB mm: Susceptible Escherichia coli Performing Organization Address City/[facility] Ph one Number [facility] DEPARTMENT OF [address] [place] [id number] PATHOLOGY AND GENOMIC MEDICINE [address] * Urinalysis screen and microscopy, with reflex to culture (01/03/2020 4:50 PM CDT) Specimen site Clean catch [facility] Color, UA Yellow [facility] Appearance, UA Cloudy [facility] Specific 1.020 1.001 - 1.035 [place] gravity, [facility] pH, UA 6.0 5.0 - 8.5 [facility] Protein, UA 2+ (A) Negative [facility] Glucose, UA Negative Negative [facility] Ketones, UA Negative Negative [facility] Bilirubin, UA Negative Negative [facility] Blood, UA Moderate (A) Negative [facility] Nitrite, UA Positive (A) Negative [facility] Urobilinogen, <2.0 <2.0 [facility] Leukocyte Large (A) Negative [place] [facility] Epithelial >20 /HPF [place] cells, [facility] WBC, UA >180 (H) 0 - 4 /HPF [facility] RBC, UA 53 (H) 0 - 5 /HPF [facility] Bacteria, UA Moderate (A) None seen [facility] Yeast, UA None seen [facility] Yeast with None seen [place] [facility] Specimen Urine Performing Organization Address City/[facility] Ph one Number [facility] DEPARTMENT OF [address] [place] [id number] PATHOLOGY AND GENOMIC MEDICINE [address] * Estimated GFR (01/03/2020 4:50 PM CDT) [facility] Estimated GFR 45 (A) mL/min/1.73 m2 [place] Comment: VOODOO [facility] Interpretation G1 >=90 Normal or high G2 60-89 Mildly decreased G3a 45-59 Mildly to moderately decreased G3b 30-44 Moderately to severely decreased G4 15-29 Severely decreased G5 <15 Kidney failure The eGFR was calculated using the Chronic Kidney Disease Epidemiology Collaboration (CKD-EPI) equation. Interpretation is based on recommendations of the National Kidney Foundation-Kidney Disease Outcomes Quality Initiative (NKF-KDOQI) published in 2014. Specimen Performing Organization Address City/[facility] Ph one Number [facility] DEPARTMENT OF [address] [place] [address] PATHOLOGY AND [facility] MEDICINE [address] * Partial thromboplastin time, activated (01/03/2020 4:50 PM CDT) [facility] PTT 28.4 23.0 - 36.0 sec [place] Comment: VOODOO PTT therapeutic range for HOSPITAL unfractionated heparin is 61.0-112.0 seconds which corresponds to Anti-Xa 0.3-0.7 U/ml. Specimen Blood Performing Organization Address [facility] Ph one Number [facility] [place] [address] PATHOLOGY AND [facility] MEDICINE [address] * Prothrombin time with INR (01/03/2020 4:50 PM CDT) [facility] Prothrombin 14.0 11.5 - 14.5 sec [facility] INR 1.1 [place] Comment: VOODOO [facility] International Normalized HOSPITAL Ratio (INR) is a therapeutic monitoring tool for patients who are stable on oral anticoagulant therapy. An INR of 2.0-3.0 is suggested for deep vein thrombosis/pulmonary embolism. Specimen Blood Performing Organization Address [facility] Ph one Number [facility] DEPARTMENT OF [address] [place] [address] PATHOLOGY AND [facility] MEDICINE [address] * CBC with platelet and differential (01/03/2020 4:50 PM CDT) [facility] WBC 10.59 4.50 - 11.00 k/uL [facility] RBC 4.21 4.20 - 5.50 m/uL [facility] HGB 11.7 (L) 12.0 - 16.0 g/dL [facility] HCT 39.8 37.0 - 47.0 % [facility] MCV 94.5 82.0 - 100.0 fL [facility] MCH 27.8 27.0 - 34.0 pg [facility] MCHC 29.4 (L) 31.0 - 37.0 g/dL [facility] RDW - SD 46.4 37.0 - 55.0 fL [facility] MPV 11.3 8.8 - 13.2 fL [facility] Platelet count 421 (H) 150 - 400 k/uL [facility] Nucleated RBC 0.00 /100 WBC [facility] Neutrophils 67.1 39.0 - 69.0 % [facility] Lymphocytes 15.2 (L) 25.0 - 45.0 % [facility] Monocytes 11.2 (H) 0.0 - 10.0 % [facility] Eosinophils 5.3 (H) 0.0 - 5.0 % [facility] Basophils 0.8 0.0 - 1.0 % [facility] Immature 0.4Comment: "Immature 0.0 - 1.0 % [place] granulocytes granulocytes" (promyelocytes, [facility] myelocytes, metamyelocytes) [facility] Specimen Blood Performing Organization Address City/State[facility] Ph one Number [facility] DEPARTMENT OF [address] [place] [address] PATHOLOGY AND GENOMIC MEDICINE [address] * Comprehensive metabolic panel (01/03/2020 4:50 PM CDT) Sodium 142 135 - 148 mEq/L [facility] Potassium 4.2 3.5 - 5.0 mEq/L [facility] Chloride 103 98 - 112 mEq/L [facility] CO2 24 24 - 31 mEq/L [facility] Anion gap 15@ANIO 7 - 15 mEq/L [facility] BUN 18 6 - 20 mg/dL [facility] Creatinine 1.35 (H) 0.50 - 0.90 mg/dL [facility] Glucose 111 (H) 65 - 99 mg/dL [facility] Calcium 9.6 8.3 - 10.2 mg/dL [facility] Protein 7.5 6.3 - 8.3 g/dL [place] Comment: [facility] [place] 4.6-7.0 g/dL 1 week 4.4-7.6 g/dL 7 months-1year 5.1-7.3 g/dL 1-2 years 5.6-7.5 g/dL >3 years 6.0-8.0 g/dL 18-150 6.3-8.3 g/dL Albumin 3.4 (L) 3.5 - 5.0 g/dL [facility] A/G ratio 0.8 0.7 - 3.8 [facility] Alkaline 99 35 - 104 U/L [place] phosphatase [facility] AST 21 10 - 35 U/L [facility] ALT 15 5 - 50 U/L [facility] Total bilirubin <0.2 0.0 - 1.2 mg/dL [facility] Specimen Blood Performing Organization Address City/[facility] Ph one Number [facility] DEPARTMENT OF [address] [place] [address] PATHOLOGY AND GENOMIC MEDICINE [address] * POC urinalysis dipstick (01/03/2020 3:06 PM CDT) Color urine, Yellow POC Clarity urine, Clear POC Glucose urine, Negative Negative POC Bilirubin Negative Negative urine, POC Ketones urine, Negative Negative [facility] Specific >/=1.030 1.005 - 1.030 gravity urine, POC Blood urine, Large (A) Negative POC pH urine, POC 6.0 5.0, 5.5, 6.0, 6.5, 7.0, 7.5, 8.0, 8.5 Protein urine, Trace (A) Negative [facility] Urobilinogen <2.0 <2.0 urine, POC Nitrite urine, Positive (A) Negative [facility] Leukocyte Small (A) Negative esterase urine, POC Specimen Urine * CT Abd/Pelvic External Study (12/23/2019 12:24 AM CDT) Only the most recent of 3 results within the time period is included. Specimen Narrative Performed At This exam was not acquired at a [facility] facility an d has not been [facility] interpreted by a [facility] Provider. The exam was imported into our imaging system. 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
--- OUTSIDE RECORDS SUMMARY | 2020-02-07 13:08 | XMS REPORT | Continuity of Care Document ---
Author Author [facility] t Organization [facility] Address [facility] [place] [address] Phone Unavailable Care Team Providers Care Art Psychotherapist Or Therapist Name Role Phone MD RAHUL NOLAN PCP SYSTEM, NOT IN PROVIDER Attphys Unavailable Rashmi ALTAMIRANO, [facility] Attphys Stacia GEORGE Attphys Unavailable Daina NOLAN Attphys Unavailable DAVI HAMMOND Attphys Unavailable SONU, DAIJA Attphys Unavailable Ghazal Rich MA Attphys Unavailable Alyse ALTAMIRANO, Boaz Attphys Montrell OJEDA, RLinda Jack Attphys Unavailable Cherry, Mickie Attphys Unavailable Shaw, Maryann Attphys Unavailable Cristobal, Celeste Attphys Cardenas, Xochitl Attphys Unavailable De Los Santos, Katt Attphys Unavailable EllerYosef strangee Attphys Unavailable Sherley Perry Attphys Unavailable Joy Nolan Attphys Timmelyssa, Jeny Attphys Unavailable Pace, Hassel Attphys Unavailable Ashley, Blanca Attphys Unavailable Stacia Maysselyn Attphys Unavailable Alexander, Deborath Attphys Unavailable LopesLroena brizuela Attphys Unavailable Yulia Nolan Attphys Unavailable , MARY Attphys Unavailable Stacia GEORGE Admphys Unavailable DAY, MARY Admphys Unavailable Celeste Jain Unavailable Joy Nolan Unavailable Payers Payer Name Policy Type Policy Number Effective Date Expiration Date Ruben gould AETNAAETNA PPO OPEN [id number] xxxxxxxxxx 2019 00:00:[address] [facility] [id number] 2019 00:00:00 [facility] Cdc Review Covid19 [id number] [facility] [id number] 2019 00:00:00 [id number] CI [id number] 2018 00:00:00 2019 00:00 :00 [facility] [id number] CI [id number] 2017 00:00:00 2018 00:00 :00 [facility] Problems Condition Name Condition Details Condition Category Status Onset Date Resolution Date Last Treatment Date Treating Clinician Comments Source Sinusitis - acute Condition Active 2019-04-03 00:00:00 2019-04-03 13:56:40 Celeste Jain [facility] Hypothyroidism Condition Active 2018-08-14 00:00:00 201 03-18-18 15:15:03 Humphrey Nolan [facility] Hypertension Condition Active 2018-08-14 00:00:00 03-27 15:15:03 Humphrey Nolan [facility] Muscle spasm Problem Active [facility] Inflammation of sacroiliac joint Problem Active [facility] Mass of ureter Problem Active [facility] Hematuria Problem Active [facility] Malignant neoplasm of urinary bladder Problem Active [facility] Occlusion of right ureter Problem Active [facility] Solitary right kidney Problem Active [facility] Renal insufficiency Problem Active [facility] History of Past Illness Condition Name Condition Details Condition Category Status Onset Date Resolution Date Last Treatment Date Treating Clinician Comments Source Acute bronchitis Condition Inactive 2018-09-26 00:00:00 201 03-18-18 00:00:00 2019-04-01 13:46:46 Celeste Jain [facility] Allergies, Adverse Reactions, Alerts Allergy Name Allergy Type Status Severity Reaction(s) Onset Date Inacti ve Date Treating Clinician Comments Source Morphine Allergy to substance Active NAUSEA 2020-01-25 00:00:00 [facility] Ceftriaxone Allergy to substance Active SWELLING, WELTS 2020-01 00:00:00 [facility] No Known Allergies DA Active U 2019-12-22 00:00:00 [facility] No Known Allergies DA Active U 2018-09-18 00:00:00 [facility] No Known Allergies DA Active U 2014-05-27 00:00:00 [facility] Social History Social Habit Start Date Stop Date Quantity Comments Source Sex Assigned At Jose Roberto Burgos alejosanna [facility] time of call 2019-04-03 16:43:17 2019-04-03 16:43:17 04/03/2019 4:43 PM [facility] is there any chance that you could be ? 2019-04-03 1 3:40:50 2019-04-03 13:40:50 No [facility] passive cigarette smoke exposure 2019-04-03 13:40:50 2019-04-03 13:40 :50 No [facility] social history reviewed E&M 2019-04-03 13:40:50 2019-04-03 13:40 :50 reviewed today [facility] sexual orientation 2019-04-03 13:40:50 2019-04-03 13:40:50 Heterosexu al [facility] drug use, illicit 2018-09-26 14:44:34 2018-09-26 14:44:34 Never [facility] alcohol use 2018-09-26 14:44:34 2018-09-26 14:44:34 Never [facility] patient considered to be homeless 2018-08-14 14:52:57 2018-08-14 14:5 2:57 No [facility] Smoking Status Start Date Stop Date Source [facility] smoked tobacco [facility]finding[facility] Ordered Medication Name Filled Medication Name Start Date Stop Da te Current Medication? Ordering Clinician Indication Dosage Frequency Signature (SIG) Comments Components Source nitrofurantoin, macrocrystal-monohydrate, (Macrobid) 100 MG capsule 2020-01-20 00:00:00 2020-01-27 23:59:00 No 100mg Q.5D Take 1 capsule (100 mg total) by mouth 2 (two) times a day for 7 days. Javi pena [facility] (AMOXICILLIN-POT CLAVULANATE) 500-125 MG TABS 20 28-03-25 00:00:00 2019-04-13 00:00:00 No Celeste Cristobal 1{Tablet} 2xD one tablet twice daily for 10 days [facility] AUGMENTIN (AMOXICILLIN-POT CLAVULANATE) 500-125 MG TABS 2019-04-03 00:00:00 2019-04-13 00:00:00 No 1{Tablet} 2xD one tablet twice d aily for 10 days [facility] (ATENOLOL) 50 MG TABS 2018-08-14 00:00:00 Yes Kodi a Cristobal 1{Tablet} 1xD 1 by mouth every day [facility] (AMLODIPINE BESYLATE) 5 MG TABS 2018-08-14 00:00:00 Yes Celeste Cristobal 1{Tablet} 1xD 1 tab by mouth daily [facility] TIROSINT (LEVOTHYROXINE SODIUM) 150 MCG CAPS 2018-08-14 00 :00:00 Yes Celeste Cristobal 1{Capsule} 1xD take one cap By Mouth Every Day [facility] Atenolol Atenolol Yes 100 Daily [facility] Cephalexin Monohydrate (Keflex) 500 Mg CAPSULE Cephale santiago Monohydrate (Keflex) 500 Mg CAPSULE Yes 500 Twice A Day [facility] Cholecalciferol (Vitamin D3) (Vitamin D) 5,000 Unit TA BLET Cholecalciferol (Vitamin D3) (Vitamin D) 5,000 Unit TABLET Yes 1 Daily [facility] Levothyroxine Sodium (Tirosint) 150 Mcg CAPSULE Levoth yroxine Sodium (Tirosint) 150 Mcg CAPSULE Yes 150 Daily [facility] Pantoprazole Sodium (Protonix) 20 Mg TABLET. Pantopr azole Sodium (Protonix) 20 Mg TABLET. Yes 40 Daily [facility] Tramadol Hcl (Ultram) 50 Mg TABLET Tramadol Hcl (Ultram) 50 Mg TABLET Yes 50 Every 6 Hours as needed for Pain [facility] Sulfamethoxazole/Trimethoprim (Bactrim Ds Tablet) 1 Ea ch TABLET Sulfamethoxazole/Trimethoprim (Bactrim Ds Tablet) 1 Each TABLET 2020-01-25 00:00:00 No 1 Twice A Day [facility] Relafen Relafen 2020-01-24 00:00:00 No 500 Twice A D ay [facility] Atenolol Atenolol 2016-10-09 00:00:00 No 25 Twice A Day [facility] Levothyroxine Sodium (Tirosint) 125 Mcg CAPSULE Levoth yroxine Sodium (Tirosint) 125 Mcg CAPSULE 2016-10-09 00:00:00 No 125 Daily [facility] Vital Signs Vital Name Observation Time Observation Value Comments Source Body Temperature 2020-02-06 16:07:00 98.6 [degF] [facility] BMI (Body Mass Index) 2020-02-05 00:32:00 55.1 kg/m2 [facility] Weight 2020-01-31 00:26:00 321 [lb_av] [facility] Body Temperature 2019-12-06 11:23:00 98.5 [degF] [facility] Weight 2019-11-29 17:32:00 276 [lb_av] [facility] BMI (Body Mass Index) 2019-11-29 17:32:00 47.4 kg/m2 [facility] Procedures Procedure Date / Time Performed Performing Clinician [facility] e X-ray of chest, two views 2020-01-26 00:00:00 [facility] [address] of abdomen and pelvis without contrast 2020-01-25 00:00:00 [facility] URINE CULTURE 2020-01-03 18:28:00 Satkunasivam, Cleve P[facility] URINALYSIS SCREEN AND MICROSCOPY, WITH REFLEX TO CULTURE 202 16:50:00 Cleve Caraballo PARTIAL THROMBOPLASTIN TIME (PTT) 2020-01-03 16:50:00 Cleve Padilla am PROTHROMBIN TIME WITH INR 2020-01-03 16:50:00 Cleve Caraballo HC COMPLETE BLD COUNT W/AUTO DIFF 2020-01-03 16:50:00 Cleve Padilla am COMPREHENSIVE METABOLIC PANEL 2020-01-03 16:50:00 Cleve Caraballo ESTIMATED GFR 2020-01-03 16:50:[address] [facility] POC URINALYSIS DIPSTICK 2020-01-03 15:06:[address] ABD/PELVIC EXTERNAL STUDY 2019-12-23 00:24:[address] ABD/PELVIC EXTERNAL STUDY 2019-11-26 17:19:00 Daina Caraballo Plan of Care Planned Activity Planned Date Details Comments Source Future Scheduled Test 2020-02-08 00:00:00 INFLUENZA VACCINE [code = INFLUENZA VACCINE] [facility] Future Scheduled Test 2016 00:00:00 BREAST CANCER SCRE ENING [code = BREAST CANCER SCREENING] [facility] Future Scheduled Test 2016 00:00:00 COLONOSCOPY SCREEN ING [code = COLONOSCOPY SCREENING] [facility] Future Scheduled Test 2016 00:00:00 SHINGLES VACCINES (#1) [code = SHINGLES VACCINES (#1)] [facility] Future Scheduled Test 1987 00:00:00 Screening for jennifer gnant neoplasm of cervix (procedure) [code = 946259455] Shahzad Sams Instructions Anemia [facility] Instructions Hypertension [facility] Instructions Post Operative Pain [facility] Encounters Start Date/Time End Date/Time Encounter Type Admission Type Attendi [facility] Care Department Encounter ID Source 2020-01-01 10:59:08 Outpatient SYSTEM, PROVIDER ROSALINDA TELLEZ [id number] MD Alvarado 2020-01-25 20:37:00 2020-02-06 17:05:00 Discharged Inpatient 1 [facility] [id number] [facility] 2020-02-06 00:00:00 2020-02-06 00:00:00 Outpatient [facility] [id number] [facility] 2020-02-06 00:00:00 2020-02-06 00:00:00 Outpatient [facility] [id number] [facility] 2020-02-06 00:00:00 2020-02-06 00:00:00 Outpatient [facility] [id number] [facility] 2020-01-23 00:00:00 2020-01-23 00:00:00 Outpatient DAVI PAYTON [facility] [id number] [facility] 2020-01-22 00:00:00 2020-01-22 00:00:00 Outpatient DAVI PAYTON MDA MDA [id number] [facility] 2020-01-21 00:00:00 2020-01-21 00:00:00 Outpatient DAIJA MYLES MDA MDA [id number] [facility] 2020-01-21 00:00:00 2020-01-21 00:00:00 Outpatient EL MDA MDA [id number] [facility] 2020-01-19 00:00:00 2020-01-19 00:00:00 Outpatient EL MDA MDA [id number] [facility] 2020-01-03 00:00:00 2020-01-03 00:00:00 Outpatient [facility] [id number] [facility] 2020-01-03 00:00:00 2020-01-03 00:00:00 Outpatient SAT[facility]VE [facility] [id number] [facility] 2019-11-29 14:37:00 2019-12-06 14:40:00 Discharged Inpatient [address] [facility] [id number] [facility] 2019-04-03 00:00:00 2019-04-03 00:00:00 Office Visit Mickie Malloy Brenda Jabeen, Sameera Torres, Paulina [facility] Encounter/[id number] [facility] 2019-04-03 00:00:00 2019-04-03 00:00:00 Office Visit Maryann Swanson, Katt Solorzano [facility] Encounter/[id number] [facility] 2019-04-03 00:00:00 2019-04-03 00:00:00 Office Visit Celeste Jain [facility] Encounter/[id number] [facility] 2019-04-03 00:00:00 2019-04-03 00:00:00 Office Visit Celeste Coello Mike [facility] Encounter/[id number] [facility] 2019-03-27 00:00:00 2019-03-27 00:00:00 Office Visit Celeste Jain [facility] Encounter/[id number] [facility] 2019-03-27 00:00:00 2019-03-27 00:00:00 Office Visit Celeste Coello Dulce Vasquez, Adriana [facility] Encounter/[id number] [facility] 2019-03-08 00:00:00 2019-03-08 00:00:00 Office Visit Maryann Swanson Sameera Garcia, Gordon D Timonieri, Carla Vasquez, Adriana Cepeda, Hassel Madrid, Katherine Huezo, Yoselyn A [facility] Encount er/[id number] [facility] 2018-10-04 00:00:00 2018-10-04 00:00:00 Office Visit Anne Marie Dutton [facility] Encounter/[id number] [facility] 2018-10-03 00:00:00 2018-10-03 00:00:00 Office Visit Maryann Swanson [facility] Encounter/[id number] [facility] 2018-09-28 00:00:00 2018-09-28 00:00:00 [facility]/[id number] [facility] 2018-09-26 00:00:00 2018-09-26 00:00:00 Office Visit Humphrey Oleary Deborath [facility] Encounter/[id number] [facility] 2018-09-26 00:00:00 2018-09-26 00:00:00 [facility]/[id number] [facility] 2018-09-26 00:00:00 2018-09-26 00:00:00 Office Visit Humphrey Oleary Iris [facility] Encounter/[id number] [facility] 2018-09-05 00:00:00 2018-09-05 00:00:00 [facility] En[facility]/[id number] [facility] 2018-08-22 00:00:00 2018-08-22 00:00:00 [facility] En[facility]/[id number] [facility] 2018-08-21 00:00:00 2018-08-21 00:00:00 [facility] Encounter/[id number] [facility] 2018-08-14 00:00:00 2018-08-14 00:00:00 Office Visit Humphrey Oleary Deborath [facility] Encounter/[id number] [facility] 2018-08-14 00:00:00 2018-08-14 00:00:00 [facility] Encounter/[id number] [facility] 2018-08-14 00:00:00 2018-08-14 00:00:00 Office Visit Humphrey Oleary Deborath [facility] Encounter/[id number] [facility] 2018-01-24 00:00:00 2018-01-24 00:00:00 Office Visit Humphrey Nolan [facility] Practice Encounter/[id number] [facility] 2016-08-16 00:00:00 2016-08-16 00:00:00 Outpatient DAY, MARY [facility] [id number] [place] [facility] Results Test Description Test Time Test Comments Results Result Comments Source CT Abd/Pelvic External Study 2020-02-06 13:03:22 This exam was not acquired at a [facility] facility and has not been interpreted by a [facility] Provider. The exam was imported into our imaging system. [facility] automated count (number/volume) 2020-02-06 09:00:00 Test Item White Blood Count (test code = 6690-2) 9.67 4.8-10.8 [facility] erythrocytes automated count (number/volume)2020-02-06 09:00:00* Test Item Value Reference Range Interpretation Comments Red Blood Count (test code = 789-8) 2.73 3.6-5.1 [facility] (moles/volume)2020-02-06 09:00:00* Test Item Value Reference Range Interpretation Comments Hemoglobin (test code = 99124-7) 7.4 12.0-16.0 [facility] hematocrit (volume fraction)2020-02-06 09:00:00* Test Item Value Reference Range Interpretation Comments Hematocrit (test code = 4544-3) 25.2 34.2-44.1 [facility] erythrocyte mean corpuscular [id number] 09:00:00* Test Item Value Reference Range Interpretation Comments Mean Corpuscular Volume (test code = 787-2) 92.3 81-99 [facility] mean corpuscular hemoglobin (mass per erythrocyte)2020-02-06 09:00:00* Test Item Value Reference Range Interpretation Comments Mean Corpuscular Hemoglobin (test code = 785-6) 27.1 28-32 [facility] eryth[facility] mean corpuscular hemoglobin concentration measurement (mass/volume)2020-02-06 09:00:00* Test Item Value Reference Range Interpretation Comments Mean Corpuscular Hemoglobin Concent (test code = 786-4) 29.4 31-35 [facility] HospitalRDW EnrFo-[id number] 09:00:00* Test Item Value Reference Range Interpretation Comments Red Cell Distribution Width (test code = 44097-0) 13.9 11.7 -14.4 [facility] platelet count (count/volume)2020-02-06 09:00:00* Test Item Value Reference Range Interpretation Comments Platelet Count (test code = 777-3) 427 140-360 [facility] segmented neutrophil count as percentage of total [id number] 09:00:00* Test Item Value Reference Range Interpretation Comments Neutrophils (%) (Auto) (test code = 28544-1) 62.7 38.7-80.0 [facility] lymphocyte count as percentage ot total [id number] 09:00:00* Test Item Value Reference Range Interpretation Comments Lymphocytes (%) (Auto) (test code = 736-9) 18.4 18.0-39.1 [facility] monocyte count as percentage of total idganlrfos5685-63-21 09:00:00* Test Item Value Reference Range Interpretation Comments Monocytes (%) (Auto) (test code = 5905-5) 9.1 4.4-11.3 [facility] blood eosinophil count as percentage of total zhsuctzmyj4023-68-57 09:00:00* Test Item Value Reference Range Interpretation Comments Eosinophils (%) (Auto) (test code = 713-8) 8.3 0.0-6.0 [facility] blood basophil count as percentage of total ixqkvdaegy0646-30-91 09:00:00* Test Item Value Reference Range Interpretation Comments Basophils (%) (Auto) (test code = 706-2) 0.3 0.0-1.0 [facility] HospitalFluoroscopic procedure less than one hour aonzjklj0665-60-26 09:00:00* Test Item Value Reference Range Interpretation Comments IM GRANULOCYTES % (test code = IM GRANULOCYTES %) 1.2 0.0- 1.0 [facility] neutrophil count 2020-02-06 09:00:00* Test Item Value Reference Range Interpretation Comments Neutrophils # (Auto) (test code = 751-8) 6.1 2.1-6.9 [facility] lymphocytes count (number/volume) 2020-02-06 09:00:00* Test Item Value Reference Range Interpretation Comments Lymphocytes # (Auto) (test code = 13868-4) 1.8 1.0-3.2 [facility] monocytes automated count (number/volume)2020-02-06 09:00:00* Test Item Value Reference Range Interpretation Comments Monocytes # (Auto) (test code = 742-7) 0.9 0.2-0.8 [facility] Hospital[facility] blood eosinophil count 2020-02-06 09:00:00* Test Item Value Reference Range Interpretation Comments Eosinophils # (Auto) (test code = 711-2) 0.8 0.0-0.4 [facility] Hospital[facility] blood basophil count (count/volume)2020-02-06 09:00:00* Test Item Value Reference Range Interpretation Comments Basophils # (Auto) (test code = 704-7) 0.0 0.0-0.1 [facility] HospitalFluoroscopic procedure less than one hour atlawmuq1195-68-29 09:00:00* Test Item Value Reference Range Interpretation Comments Absolute Immature Granulocyte (auto (arminda t code = Absolute Immature Granulocyte (auto) 0.12 0-0.1 [facility] sodium measurement (moles/volume)2020-02-06 09:00:00* Test Item Value Reference Range Interpretation Comments Sodium Level (test code = 2951-2) 139 136-145 [facility] plasma potassium measurement (moles/volume)2020-02-06 09:00:00* Test Item Value Reference Range Interpretation Comments Potassium Level (test code = 2823-3) 3.7 3.5-5.1 [facility] plasma chloride measurement (moles/volume)2020-02-06 09:00:00* Test Item Value Reference Range Interpretation Comments Chloride Level (test code = 2075-0) 105 98-107 [facility] plasma carbon dioxide, total measurement (moles/volume)2020-02-06 09:00:00* Test Item Value Reference Range Interpretation Comments Carbon Dioxide Level (test code = 2028-9) 25 22-29 [facility] plasma anion [id number] 09:00:00* Test Item Value Reference Range Interpretation Comments Anion Gap (test code = 31992-7) 12.7 8-16 [facility] plasma urea nitrogen measurement (mass/volume)2020-02-06 09:00:00* Test Item Value Reference Range Interpretation Comments Blood Urea Nitrogen (test code = 3094-0) 5 7-26 [facility] plasma creatinine measurement (mass/volume)2020-02-06 09:00:00* Test Item Value Reference Range Interpretation Comments Creatinine (test code = 2160-0) 1.14 0.57-1.11 [facility] plasma urea nitrogen/creatinine mass [id number] 09:00:00* Test Item Value Reference Range Interpretation Comments BUN/Creatinine Ratio (test code = 3097-3) 4 6-25 [facility] HospitalEstimated glomerular filtration rate (GFR) owidpyfdidvxz9241-27-97 09:00:00* Test Item Value Reference Range Interpretation Comments Estimat Glomerular Filtration Rate (test code = 349486305) 50 >60 Ranges were taken from the National Kidney Disease Education Program and the [facility] literature.Reference ranges:60 or greater: Cexvyf61-72 ( for 3 consecutive months): Chronic kidney disease 15 or less: Kidney failureLegent Orthopedic HospitalGlucose qrkysaiwpze3040-93-34 09:00:00* Test Item Value Reference Range Interpretation Comments Glucose Level (test code = WAF9165) 106 74-118 [facility] plasma calcium measurement (mass/volume)2020-02-06 09:00:00* Test Item Value Reference Range Interpretation Comments Calcium Level (test code = 94578-5) 7.7 8.4-10.2 [facility] HospitalBlood hypochromia detection by light fxlhcwnvyy4526-84-83 04:40:00* Test Item Value Reference Range Interpretation Comments Hypochromasia (test code = 728-6) SLIGHT [facility] plasma magnesium measurement (mass/volume)2020-02-05 04:40:00* Test Item Value Reference Range Interpretation Comments Magnesium Level (test code = 91516-0) 1.4 1.3-2.1 [facility] plasma iron measurement (mass/volume)2020-02-05 04:40:00* Test Item Value Reference Range Interpretation Comments Iron Level (test code = 2498-4) 20 50-170 [facility] iron binding capacity measurement (mass/volume)2020-02-05 04:40:00* Test Item Value Reference Range Interpretation Comments Total Iron Binding Capacity (test code = 2500-7) 239 261-4 78 [facility] iron saturation measurement (mass fraction)2020-02-05 04:40:00* Test Item Value Reference Range Interpretation Comments Percent Iron Saturation (test code = 2502-3) 8 15-50 [facility] plasma transferrin measurement (mass/volume)2020-02-05 04:40:00* Test Item Value Reference Range Interpretation Comments Transferrin (test code = 3034-6) 171 180-382 [facility] total bilirubin measurement (mass/volume)2020-02-03 20:46:00* Test Item Value Reference Range Interpretation Comments Total Bilirubin (test code = 1975-2) 0.3 0.2-1.2 [facility] less than one hour nihhwjny1801-12-08 20:46:00* Test Item Value Reference Range Interpretation Comments Aspartate Amino Transf (AST/SGOT) (test code = Aspartate Amino Transf (AST/SGOT)) 30 5-34 [facility] alanine aminotransferase measurement (enzymatic activity/volume)2020-02-03 20:46:00* Test Item Value Reference Range Interpretation Comments Alanine Aminotransferase (ALT/SGPT) (test code = 1742-6) 15 0-55 [facility] protein measurement (mass/volume)2020-02-03 20:46:00* Test Item Value Reference Range Interpretation Comments Total Protein (test code = 2885-2) 5.1 6.5-8.1 [facility] albumin measurement (mass/volume)2020-02-03 20:46:00* Test Item Value Reference Range Interpretation Comments Albumin (test code = 1751-7) 1.9 3.5-5.0 [facility] Hospital[facility] globulin measurement (mass/volume) 2020-02-03 20:46:00* Test Item Value Reference Range Interpretation Comments Globulin (test code = 54702-1) 3.2 2.3-3.5 [facility] albumin/globulin mass psudw7932-76-57 20:46:00* Test Item Value Reference Range Interpretation Comments Albumin/Globulin Ratio (test code = 1759-0) 0.6 0.8-2.0 [facility] alkaline phosphatase measurement (enzymatic activity/volume)2020-02-03 20:46:00* Test Item Value Reference Range Interpretation Comments Alkaline Phosphatase (test code = 6768-6) 60 40-150 [facility]AB[facility] (KUB)2020-02-03 20:00:00 [facility] [address] [place] [address] Patient Name: SHAKA MOORE MR #: [id number] : 1965 Age/Sex: 54/F Req #: [id number] Adm Physician: REI GEORGE MD Ordered by: RAHUL NOLAN MD Report #: [id number] Location: MED/SURG Room/Bed: [facility] Procedure: [id number] DX/ABDOMEN-1V IEW (KUB) Exam Date: 02/03/20 Exam Time: 1840 REPORT STATUS: Signed EXAM: Abdomen Ra diograph 1 View(s) INDICATION: check position of right double j COMPARISON: CT abdomen on 01/25/2020 FINDINGS: There are drains projected over the right lower quadrant and left pelvis. Visualization of the right double-J kin nt is limited due to overlying bowel gas. However, it appears coiled in the ri ght lower quadrant and terminates within the pelvic inlet. There is diffu se dilated large and small bowel loops. Post surgical changes of the soft t issues with multiple nicola projecting over the left pelvis. No pneumope ritoneum. No acute osseous abnormality. Degenerative changes in the arvin mbar spine and pelvis. IMPRESSION: 1. Limited evaluation of the right double-J stent which appears coiled in the right lower quadrant and terminates within the pelvic inlet. Recommend further evaluation with noncontrast CT of the abdomen/pelvis. 2. Diffuse dilatation of small and large bowel loops, mo st likely post surgical ileus. 3. Surgical drains as above. Signed by: Tino Muñoz MD on 02/03/2020 8:10 PM Dictated By: TINO MUÑOZ MD El ectronically Signed By: TINO MUÑOZ MD on 02/03/202009 Transcribed By: GUILLERMO LUCIO on 02/03/202009 COPY TO: RAHUL NOLAN MD Fluoroscopic procedure less than one hour mocligoa2745-38-83 09:05:00* Test Item Value Reference Range Interpretation Comments Differential Total Cells Counted (test code = Differen tial Total Cells Counted) 100 [facility]100 leukocytes 2020-02-02 09:05:00* Test Item Value Reference Range Interpretation Comments Neutrophils % (Manual) (test code = 89466-3) 75 40-74 [facility] blood lymphocytes/100 leukocytes 2020-02-02 09:05:00* Test Item Value Reference Range Interpretation Comments Lymphocytes % (Manual) (test code = 737-7) 13 19-48 [facility] blood monocytes/100 leukocytes 2020-02-02 09:05:00* Test Item Value Reference Range Interpretation Comments Monocytes % (Manual) (test code = 744-3) 7 3.4-9.0 [facility] blood eosinophil count as percentage of total mmvwnljilz4523-62-19 09:05:00* Test Item Value Reference Range Interpretation Comments Eosinophils % (Manual) (test code = 714-6) 5 0-7 [facility] HospitalCH[facility] SINGLE (PORTABLE)2020-01-30 18:13:00 [place] [address] Patient Name: SHAKA MOORE MR #: [id number] : 1965 Age/Sex: 54/F Req #: [id number] Adm Physician: REI GEORGE MD Ordered by: BETTY EVANGELISTA MD Report #: [id number] Location: [facility] Room/Bed: [place] [address] Procedure: [id number] DX/CHEST S BROOKS (PORTABLE) Exam Date: 01/30/20 Exam Time: 1800 REPORT STATUS: Signed Examinati on: Single AP view of the chest. COMPARISON: None. INDICATION: Central line placement DISCUSSION: Lines/tubes: Enteric tube with the d istal tip overlying the left upper quadrant. Right IJ central venous catheter with tip overlying the SVC. Lungs: Low lung volumes with lung base atelect asis. Pleura: There is no pleural effusion or pneumothorax. Heart and mediastinum: The heart and the mediastinum are unremarkable. Bones and so ft tissues: No acute bony abnormalities. IMPRESSION: Right IJ c atheter with tip overlying the SVC. Signed by: Dr. Nickie Hazel M.D. on 01/30/2020 6:14 PM Dictated By: NICKIE HAZEL MD 1818 Transcribed By: MELANIE on 01/30/20 1 814 COPY TO: BETTY EVANGELISTA MD CHEST 2 [id number] 15:58:00 [place] [address] Patient Name: SHAKA MOORE MR #: [id number] : 1965 Age/Sex: 54/F Req #: [id number] Adm Physician: REI GEORGE MD Ordered by: RAHUL NOLAN MD Report #: [id number] Location: MED/SURG2 Room/Bed: [facility] Procedure: [id number] DX/CHEST 2 EWS Exam Date: 01/26/20 Exam Time: 1525 REPORT STATUS: Signed EXAMINATION: CHEST 2 VIEWS INDICATION: pre op COMPARISON: None FIND INGS: PA and lateral views TUBES and LINES: None. LUNGS/PLEU RA: Lungs are well inflated. There are bilateral interstitial opacities coul d be due to pulmonary edema. Focal left basilar opacity could be due to atelec tasis or pneumonia.. There is no pleural effusion or pneumothorax. HEART AN D MEDIASTINUM: The cardiomediastinal silhouette is unremarkable. BONES AND SOFT TISSUES: No acute osseous lesion. Soft tissues are unremarkable. UPPER ABDOMEN: No free air under the diaphragm. IMPRESSION: B ilateral interstitial opacities could be due to pulmonary edema. Focal lef t basilar opacity could be due to atelectasis. Pneumonia could be considered i n appropriate clinical setting. Signed by: Kamaljit Greenwood MD on 01/25 3:59 PM Dictated By: KAMALJIT GREENWOOD MD 1559 Transcribed By: MELANIE on 01/26/20 155 9 COPY TO: RAHUL NOLAN MD Serum or plasma creatine kinase measurement (enzymatic activity/volume)2020-01-26 10:50:00* Test Item Value Reference Range Interpretation Comments Creatine Kinase (test code = 2157-6) 7 29-168 [facility] creatine kinase MB measurement (mass/volume)2020-01-26 10:50:00* Test Item Value Reference Range Interpretation Comments Creatine Kinase MB (test code = 16194-2) 0.30 0-5.0 [facility] HospitalTroponin I measurement by highly sensitive enzyme rvysxidmunh8101-66-22 10:50:00* Test Item Value Reference Range Interpretation Comments Troponin I (test code = 47219-6) 0.009 0-0.300 [facility] HospitalFluoroscopic procedure less than one hour wkuovncd0246-47-78 18:40:00* Test Item Value Reference Range Interpretation Comments Coronavirus (PCR) (test code = Coronavirus (PCR)) NOT DETECTED NOTD ETECTED SARS-COV-2 (COVID19), HIGHRISK, RT-PCRNegative results do not preclude SARS-CoV- 2 infection and should not be used as the sole basis for patient management deci sions. Negative results must be combined with clinical observations, patient his tory, and epidemiological information. Optimum specimen types and timing for pea k viral levels during infections caused by SARS-CoV-2 have not been determined. Collection of multiple specimens ot types of specimens may be necessary to detec t virus. Improper specimen collection and handling, sequence variability under p rimers/probes, or organism present below the limit of detection may lead to fals e negative results. Positive and negative predictive values of testing are highl y dependent on prevalance. False negative test results are more likely when prev alence is high.The expected result is negative (not detected).The SARS-CoV-2 arminda t is intended for the qualitative detection of nucleic acid from SARS-CoV-2 in n asopharyngeal and oropharyngeal swab samples from patients who meet COVID-19 cli nical and or epidemiological criteria. For lower respiratory tract specimens, th e assay is submitted for authoriztion by FDA under an Emergency Use Authorizatio n (EUA). Testing methodology is real time RT-PCR. If received as separate collec tion devices, nasopharygeal and oropharyngeal specimens are combined for analysi s. Additional specimens may be split to a separate accession for analysi and rep orting as this test includes a single unit of service.Test results must be corre lated with clinical presentation and evaluated in the context of other laborator y and epidemiologic data. Test performance can be affected because the epidemiol ogy and clinical spectrum of infection caused by SARS-CoV-2 is not fully known. For example, the optimum types of specimens to collect and when during the cours e of infection these specimens are most likely to contain detectable viral RNA m ay not be known.This test has not been Food and Drug Administration (FDA) cleare d or approved and has been authorized by FDA under an Emergency Use Authorizatio n (EUA). The test is only authorized for the duration of the declaration that ci rcumstances exist justifying the authorization of emergency use of in vitro diag nostic tests for detection and/or diagnosis of SARS-CoV-2 under section 564(b) o f the Act, 21 U.S.C. section 360bbb-3(b)(1), unless the authorization is termina xochitl or revoked sooner. [facility] are certified under the C linical Laboratory Improvement Amendments of 1988 (CLIA), 42 U.S.C. section 263a , to perform high complexity tests.Testing performed by [facility] [id number] [place], [place] [id number] Director: Sandip You M.D.CLIA # [id number] A[facility]/PELVIS [id number] 17:58:00 [facility] [address] [place], [place] [address] Patient Name: SHAKA MOORE MR #: [id number] : 1965 Age/Sex: 54/F Req #: [id number] Adm Physician: Ordered by: LILIANA BORGES MD Report #: [id number] Location: ER Room/Bed: Procedure: [id number] CT/CT ABDOM EN/PELVIS WO Exam Date: 01/25/20 Exam Time: 1710 REPORT STATUS: Signed EXAM: CT Abdo men and Pelvis WITHOUT contrast INDICATION: Stone Protocol, H/O BLADDER CA, HEMATURIA RENAL COMPARISON: None. TECHNIQUE: Abdomen and pelvis were scan sarah utilizing a multidetector helical scanner from the lung base to the pubic symphysis without administration of IV contrast. Absence of intravenous contra st decreases sensitivity for detection of focal lesions and vascular pathology . Coronal and sagittal reformations were obtained. Routine protocol was perfor med. IV CONTRAST: None ORAL CONTRAST: Water COMP LICATIONS: None RADIATION DOSE: Total DLP: 775.12 mGy-cm Angelita mated effective dose: (DLP x 0.015 x size factor) mSv CTDIvol has been re viewed. It is below the limits set by the Radiation Protocol Committee (RPC). FINDINGS: LINES and TUBES: None. LOWER THORAX: There is bibasilar linear atelectasis. HEPATOBILIARY: The liver is diffuse hypodense compared to the spleen, consistent with diffuse hepatic diffuse hepatic steatosis. No focal hepatic lesions. No biliary ductal dilation. GALLBLADDER: There are cholecystectomy clips. SPLEEN: There is absent PANCREAS: The une nhanced pancreas shows no focal masses. There is no ductal dilatation. ADRENALS: The adrenal glands are unremarkable. KIDNEYS/URETERS/BLADDER: Left kidney: Left kidney is surgically absent. Slight soft tissue infiltration is noted in the left nephrectomy surgical bed (series 3, images 58-80) which could be postoperative. Right kidney:No cystic or solid mass lesions alth ough evaluation is limited due to lack of IV contrast. There is mild right-si ded hydroureteronephrosis. No definite stone is seen. This is likely due to bl adder mass. Bladder: There is a 2.6 x 6.9 cm mass in the posterior bladder which is incompletely seen and evaluated on this exam. GI TRACT: No abnor mal distention, wall thickening, or evidence of bowel obstruction. PELVIC ORGANS: Calcified fibroid uterus LYMPH NODES: No lymphadenop athy. VESSELS: Vessels are incompletely evaluated due to lack of IV contras t. However no definite aneurysm seen. PERITONEUM / RETROPERITONEUM: No fr ee air or fluid. BONES: There are degenerative changes in the spine. SOFT TISSUES: Unremarkable. IMPRESSION: 1. Incompletely seen and evaluated mass in the bladder which approximately measur es 2.6 x 6.9 cm. Recommend further evaluation with cystoscopy. 2. Mild rig ht-sided hydroureteronephrosis likely due to obstruction by bladder mass. No o bstructing calculus. 3. Left kidney is surgically absent. Slight soft tiss ue infiltration is noted in the left nephrectomy surgical bed likely postopera tive. Recommend attention on follow-up Signed by: Kamaljit Greenwood MD o n 01/25/2020 6:12 PM Dictated By: KAMALJIT GREENWOOD MD Electronically Sig sarah By: KAMALJIT GREENWOOD MD on 01/25/201811 Transcribed By: MELANIE on 1811 COPY TO: LILIANA BORGES MD Prothrombin time (PT) in platelet poor plasma by coagulation mratf7042-81-05 13:00:00* Test Item Value Reference Range Interpretation Comments Prothrombin Time (test code = 5902-2) 13.5 11.9-14.5 [facility] HospitalIN[facility] in Platelet poor plasma by Coagulation nqcex4983-88-36 13:00:00* Test Item Value Reference Range Interpretation Comments Prothromb Time International Ratio (test code = 6301-6) 0.97 Oral Anticoagulant Therapy INR Values:1. Low Intensity Therapy 1.5 - 2.02 . Moderate Intensity Therapy 2.0 - 3.03. High Intensity Therapy(1) 2.5 - 3. 54. High Intensity Therapy(2) 3.0 - 4.05. Panic Value INR > 5.0 [facility] HospitalActivated partial thromboplastin time (aPTT) in platelet poor plasma by coagulation ntcva3330-77-27 13:00:00* Test Item Value Reference Range Interpretation Comments Activated Partial Thromboplast Time (test code = 01553-1) 24.7 23.8-35.5 [facility] HospitalUrine color afkklydudamir3392-82-20 13:00:00* Test Item Value Reference Range Interpretation Comments Urine Color (test code = 5778-6) RED YELLOW [facility] HospitalUrine zwluwox3977-64-56 13:00:00* Test Item Value Reference Range Interpretation Comments Urine Clarity (test code = 27044-6) HAZY CLEAR [facility] of Urine by Test strip 2020-01-25 13:00:00* Test Item Value Reference Range Interpretation Comments Urine Specific [place] (test code = 5811-5) 1.025 1.010-1.02 5 [facility] pH measurement by automated test wkgcg2062-20-11 13:00:00* Test Item Value Reference Range Interpretation Comments Urine pH (test code = 09379-5) 7 5-7 [facility] Hospital[facility] leukocyte esterase detection by rtjqnhzb8039-64-97 13:00:00* Test Item Value Reference Range Interpretation Comments Urine Leukocyte Esterase (test code = 5799-2) NEGATIVE NEGATIVE [facility] HospitalUrine nitrite rchoyimfk0619-57-80 13:00:00* Test Item Value Reference Range Interpretation Comments Urine Nitrite (test code = 57773-0) NEGATIVE NEGATIVE [facility] protein measurement by test strip (mass/volume)2020-01-25 13:00:00* Test Item Value Reference Range Interpretation Comments Urine Protein (test code = 5804-0) >=300 NEGATIVE [facility] HospitalU[facility] glucose tznvhuxvy9620-37-78 13:00:00* Test Item Value Reference Range Interpretation Comments Urine Glucose (UA) (test code = 2349-9) NEGATIVE NEGATIVE [facility] HospitalUrine ketones detection by automated test zyqlg5954-35-49 13:00:00* Test Item Value Reference Range Interpretation Comments Urine Ketones (test code = 85893-1) NEGATIVE NEGATIVE [facility] Hospital[facility]rine urobilinogen measurement by test strip (mass/volume)2020-01-25 13:00:00* Test Item Value Reference Range Interpretation Comments Urine Urobilinogen (test code = 09513-6) 0.2 0.2-1 [facility] Hospital[facility] total bilirubin measurement (mass/volume)2020-01-25 13:00:00* Test Item Value Reference Range Interpretation Comments Urine Bilirubin (test code = 1978-6) SMALL NEGATIVE [facility] Hospital[facility] erythrocytes gfjqeqdkz1200-26-22 13:00:00* Test Item Value Reference Range Interpretation Comments Urine Blood (test code = 54897-8) LARGE NEGATIVE [facility] HospitalAutomated urine sediment leukocyte count by microscopy (number/high power field)2020-01-25 13:00:00* Test Item Value Reference Range Interpretation Comments Urine WBC (test code = 5821-4) 0-5 0-5 [facility] HospitalErythrocytes detection in urine sediment by light wyemdsexmk4208-87-33 13:00:00* Test Item Value Reference Range Interpretation Comments Urine RBC (test code = 75251-9) >50 0-5 [facility] HospitalBacteria detection in urine sediment by light jbkpklrqbn9487-17-67 13:00:00* Test Item Value Reference Range Interpretation Comments Urine Bacteria (test code = 31655-7) NONE NONE [facility] HospitalEpithelial cells detection in urine sediment by light gqrualxbtx3721-88-89 13:00:00* Test Item Value Reference Range Interpretation Comments Urine Epithelial Cells (test code = 41645-2) RARE NONE [facility] HospitalBacterial urine gnldigv7216-18-50 13:00:00* Test Item Value Reference Range Interpretation Comments Urine Culture (test code = 630-4) ESCHERICHIA COLI-ESBL [facility] HospitalCHEST 2 [id number] 13:16:00 [place] [address] Patient Name: SHAKA MOORE MR #: [id number] : 1965 Age/Sex: 54/F Req #: [id number] Adm Physician: Ordered by: RAHUL NOLAN MD Report #: [id number] Location: OR Room/Bed: Procedure: [id number] DX/CHEST 2 EWS Exam Date: 01/24/20 Exam Time: 1249 REPORT STATUS: Signed EXAM: CHEST 2 VIEWS DATE: 01/24/2020 12:49 PM INDICATION: Preoperative evaluation, bladder cancer COMPARISON: 12/04/2019 FINDINGS: The trachea is midline. The lungs are symmetrically expanded without evidence for large focal consolidati on, pneumothorax, or significant pleural effusion. The cardiomediastinal si lhouette and pulmonary vasculature are within normal limits. Degenerative wilson ges noted of the visualized spine. No acute osseous abnormality is identified. The surrounding soft tissues are unremarkable. IMPRESSION: No acute cardiopulmonary process identified. Signed by: Dr. Trell Guzman MD on 1:16 PM Dictated By: TRELL GUZMAN MD 15 Transcribed By: MELANIE on 01/24/201315 COPY TO: RAHUL NOLAN MD Urinalysis screen and microscopy, with reflex to xudcxqv3371-50-18 20:28:55* Test Item Value Reference Range Interpretation Comments Specimen site (test code = 2837192) Clean catch Color, UA (test code = 5778-6) Yellow Appearance, UA (test code = 5767-9) Cloudy Specific gravity, UA (test code = 5811-5) 1.020 1.001-1.035 pH, UA (test code = 5803-2) 6.0 5.0-8.5 Protein, UA (test code = 80982-8) 2+ Negative A Glucose, UA (test code = 35958-2) Negative Negative Ketones, UA (test code = 2514-8) Negative Negative Bilirubin, UA (test code = 5770-3) Negative Negative Blood, UA (test code = 5794-3) Moderate Negative A Nitrite, UA (test code = 5802-4) Positive Negative A Urobilinogen, UA (test code = 80726-7) <2.0 <2.0 Leukocyte esterase, UA (test code = 5799-2) Large Negative A Epithelial cells, UA (test code = 5787-7) >20 /HPF WBC, UA (test code = 5821-4) >180 0- 4 /HPF H RBC, UA (test code = 10316-0) 53 0- 5 /HPF H Bacteria, UA (test code = 32329-4) Moderate None seen A Yeast, UA (test code = 88534-8) None seen Yeast with pseudohyphae, UA (test code = 96135-6) None seen Lab Interpretation (test code = 91153-8) [facility]normal [facility] xihca7472-19-00 18:23:25* Test Item Value Reference Range Interpretation Comments Sodium (test code = 2951-2) 142 135- 148 mEq/L Potassium (test code = 2823-3) 4.2 3.5- 5.0 mEq/L Chloride (test code = 2075-0) 103 98- 112 mEq/L CO2 (test code = 2027-9) 24 24- 31 mEq/L Anion gap (test code = 22385-7) 15@ANIO 7- 15 mEq/L BUN (test code = 3094-0) 18 mg/dL 6-20 Creatinine (test code = 2160-0) 1.35 mg/dL 0.5-0.9 H Glucose (test code = 2345-7) 111 mg/dL 65-99 H Calcium (test code = 35369-5) 9.6 mg/dL 8.3-10.2 Protein (test code = 2885-2) 7.5 g/dL 6.3-8.3 - 4.6- 7.0 g/dL1 week 4.4-7.6 g/dL7 months-1year 5.1-7.3 g/dL1-2 years 5.6-7.5 g/dL>3 years 6.0-8.0 g/vH73-035 6.3-8.3 g/dL Albumin (test code = 1751-7) 3.4 g/dL 3.5-5 L A/G ratio (test code = 1759-0) 0.8 0.7-3.8 Alkaline phosphatase (test code = 6768-6) 99 U/L 35-104 AST (test code = 1920-8) 21 U/L 10-35 ALT (test code = 1742-6) 15 U/L 5-50 Total bilirubin (test code = 1974-2) <0.2 0-1.2 Lab Interpretation (test code = 93407-2) Abnormal [facility] VJG2301-95-09 18:10:55* Test Item Value Reference Range Interpretation Comments Estimated GFR (test code = 5488) 45 mL/min/1.73 m2 A Catergory Units InterpretationG1 >=90 Normal or highG2 60-89 Mildly axdcwpzdsQ5k 45-59 Mildly to moderately penxkvdebW3l 30-44 Moderately to severely decreasedG4 15-29 Severely decreasedG5 <15 Kidney failureThe eGFR was calculated using the Chronic Kidney Disease Epidemiology Collaboration (CKD-EPI) equation. Interpretation is based on recommendations of the National Kidney Foundation-Kidney Disease Outcomes Quality Initiative (NKF-KDOQI) published in 2014. Lab Interpretation (test code = 78325-0) Abnormal [facility] MethodistProthrombin time with BXT8950-03-97 17:58:15* Test Item Value Reference Range Interpretation Comments Prothrombin time (test code = 5902-2) 14.0 11.5- 14.5 sec INR (test code = 55016-5) 1.1 Th e International Normalized Ratio (INR) is a therapeutic monitoring tool for patients who are stable on oral anticoagulant therapy. An INR of 2.0-3.0 is suggested for deep vein thrombosis/pulmonary embolism. [facility] MethodistPartial thromboplastin time, nqtayxjwx3364-96-41 17:57:54* Test Item Value Reference Range Interpretation Comments PTT (test code = 13622-6) 28.4 23.0- 36.0 sec PTT therapeutic range for unfractionated heparin is61.0-112.0 seconds which corresponds to Anti-Xa0.3-0.7 U/ml. [facility] with platelet and cgrnqqrorisj6554-04-34 17:47:24* Test Item Value Reference Range Interpretation Comments WBC (test code = 45164-1) 10.59 4.50- 11.00 k/uL RBC (test code = 48064-2) 4.21 m/uL 4.2-5.5 HGB (test code = 718-7) 11.7 g/dL 12-16 L HCT (test code = 4544-3) 39.8 % 37-47 MCV (test code = 787-2) 94.5 fL 82-100 MCH (test code = 785-6) 27.8 pg 27-34 MCHC (test code = 786-4) 29.4 g/dL 31-37 L RDW - SD (test code = 27181-6) 46.4 fL 37-55 MPV (test code = 67607-4) 11.3 fL 8.8-13.2 Platelet count (test code = 21249-0) 421 150- 400 k/uL H Nucleated RBC (test code = 31241-8) 0.00 /100 WBC Neutrophils (test code = 57380-5) 67.1 % 39-69 Lymphocytes (test code = 95902-9) 15.2 % 25-45 L Monocytes (test code = 55383-3) 11.2 % 0-10 H Eosinophils (test code = 45073-3) 5.3 % 0-5 H Basophils (test code = 37579-1) 0.8 % 0-1 Immature granulocytes (test code = 22310-2) 0.4 % 0-1 "Immature granulocytes" (promyelocytes, myelocytes, metamyelocytes) Lab Interpretation (test code = 84432-9) Abnormal [facility] urinalysis [id number] 15:06:00* Test Item Value Reference Range Interpretation Comments Color urine, POC (test code = 7358927) Yellow Clarity urine, POC (test code = 2436153) Clear Glucose urine, POC (test code = 0692451) Negative Negative Bilirubin urine, POC (test code = 4953877) Negative Negative Ketones urine, POC (test code = 3834570) Negative Negative Specific gravity urine, POC (test code = 5010963) >/=1.030 1.00 5-1.030 Blood urine, POC (test code = 8654701) Large Negative A pH urine, POC (test code = 0870515) 6.0 5.0, 5.5, 6. 0, 6.5, 7.0, 7.5, 8.0, 8.5 Protein urine, POC (test code = 2211684) Trace Negative A Urobilinogen urine, POC (test code = 0755405) <2.0 <2.0 Nitrite urine, POC (test code = 4348345) Positive Negative A Leukocyte esterase urine, POC (test code = 5868742) Small Ne gative A Lab Interpretation (test code = 63382-9) Abnormal [facility][id number] 16:19:00 RUN DATE: 12/27/19 [facility] Lab PAGE 1 RUN TIME: 1620 Specimen Inqui ry RUN USER: INTERFACE PATIENT: SHAKA MOORE ACCT #: [id number] LOC: TONEY U #: [id number] AGE/SX: 54/F ROOM: [facility] RE12/23/19REG DR: Rei George MD : 67 BED: A DIS: 12/25/19 STATUS: DIS IN TLOC: SPEC #: [id number] RECD: 12/24/19 STATUS: ARJUN REBianca #: [id number] CONCEPCION: 12/23/19- DR: Rahul Nolan MD ENTERED: 12/24/19 SP TYPE: BX BLAD OTHR DR: Garland Boswell MD, Raul R MD TUMOR REGISTRYORDERED: GROSS COPIES TO: Garland Boswell MD [address] [place], [place] [address] Rahul Nolan MD [address] [place] [address] TUMOR REGISTRY MARKERS: INTRADEPARTM ENTAL CONSULT, MALIGNANCY PROCEDURES: GROSS (12/26/19-144) TISSUES: 1 . URINARY BLADDER, NOS - TUMOR 2. URINARY BLADDER, NOS - MIDLINE NECK BX 3. URINARY BLADDER, NOS - RIGHT NECK BX 4. URINARY BLADDER, NOS - LEFT NECK BX CLINICAL HISTORY COLLECTION DATE: 12/21/19 B LADDER TUMOR COMMENT The sections of the invasive tumor in the [facility] st specimen demonstrate sheets and nests of malignant tumor cells with frequent mitotic figures and areas of necrosis. Scattered markedly atypical cells are present in the areas. Immunostains were prepared at [facility] and [facility]. The controls stain appropriately. Muc h of the tumor is positive for Pancytokeratin. The tumor is negative for LCA. Lymphocytes within the specimen are staining with the LCA. CONTINUED ON NEXT PAGE RUN DATE: 12/27/19 [facility] PAGE 2 RUN TIME: 1 620 Specimen Inquiry RUN USER: INT ERFACE RADHA Son #: [id number] PATIENT: SHAKA MOORE #[id number] (C ontinued) COMMENT (Continued) Intradepar tmental consultation: RRB. FINAL DIAGNOSIS Bladder tumor, transurethr al resection of bladder tumor: INVASIVE POORLY DIFFERENTIATED UROTHELIAL CARCINOMA WITH INVASION OF THE SMOOTH MUSCLE WALL AREAS OF FLAT UROTHELIAL CARCINOMA IN SITU Midline bladder neck, biopsy: SQUAMOUS METAPLASIA, BLADDER MUCOSA NEGATIVE FOR MALIGNANCY Ri ght side of bladder neck, biopsy: SQUAMOUS METAPLASIA, BLADDER MUCOSA NEGATIVE FOR MALIGNANCY Left side bladder neck, biopsy: DYSPLASTIC CHANGE AND SQUAMOUS METAPLASIA, BLADDER MUCOSA W/ D [id number], [id number] MACROSCOPIC The first specimen is received in formalin, labeled with the patient's name, and identified as "bladder tumor". It consists of multiple gallegos-brown rubbery fragments of tissue measuring 4.7 x 4.3 x 1 cm in aggregate and weighing 9.7 grams. The specimen is submitted in its entirety for microscopic evaluation in cassettes (1A-1I). The second specimen is received in formalin, labeled with the patient's name, and ident ified as "midline bladder neck biopsy". It consists of a gallegos biopsy fragment measuring 0.25 cm. The third specimen is received in formalin, labeled w ith the patient's name, and identified as "right side bladder neck biopsy". i t consists of a gallegos biopsy fragment measuring 0.35 cm. The fourth spec imen is received in formalin, labeled with the patient's name, and identified as "left side bladder neck biopsy". It consists of a gallegos biopsy fragment moy uring 0.2 cm. GROSS PERFORMED AT [facility] [address] [facility] CONTINUED ON NEXT PAGE RUN DATE: 12/27/19 [facility] PAGE 3 RUN TIME: 1620 Specimen Inquiry RUN USER: INTERFACE SPEC #: [id number] PATIENT: SHAKA MOORE #[id number] (Continued)------ ------ MACROSCOPIC (Continued) [place] [id number] (P) [phone] MICROSCOPIC All of the stains, including any controls performed, stain appropriately. MICROSCOPIC PERFORMED AT [facility] [address] [facility], [place] [address] (p)[phone] PERFORM[address] SITE Diagnosis performed at: [facility] [address] [place] [address] Signed SIGNATURE ON FILE Lucia Carreon MD 12/27/19 16 END O F REPORT CBC W/AUTO [id number] 06:14:00* Test Item Value Reference Range Interpretation Comments WHITE BLOOD CELL (test code = WBC) 9.2 K/mm3 4.5-12.5 N RED BLOOD CELL (test code = RBC) 3.77 mill/mm3 3.7-5.2 N HEMOGLOBIN (test code = HGB) 10.8 gram/dL 11.5-15.5 L HEMATOCRIT (test code = HCT) 36.2 % 36.0-46.0 N MEAN CELL VOLUME (test code = MCV) 96.0 fL 80-98 N MEAN CELL HGB (test code = MCH) 28.6 picogram 27.0-33.0 N MEAN CELL HGB CONCETRATION (test code = MCHC) 29.8 gram/dL 33.0-36. 0 L RED CELL DISTRIBUTION WIDTH (test code = RDW) 13.6 % 11.6-16. 2 N RED CELL DISTRIBUTION WIDTH SD (test code = RDW-SD) 47.3 fL 37 .0-51.0 N PLATELET COUNT (test code = PLT) 338 K/mm3 150-450 N MEAN PLATELET VOLUME (test code = MPV) 11.4 fL 6.7-11.0 H NEUTROPHIL % (test code = NT%) 85.9 % 39.0-69.0 H IMMATURE GRANULOCYTE % (test code = IG%) 0.4 % 0.0-5.0 N LYMPHOCYTE % (test code = LY%) 9.8 % 25.0-55.0 L MONOCYTE % (test code = MO%) 3.6 % 0.0-10.0 N EOSINOPHIL % (test code = EO%) 0.0 % 0.0-5.0 N BASOPHIL % (test code = BA%) 0.3 % 0.0-1.0 N NUCLEATED RBC % (test code = NRBC%) 0.0 % 0-0 N NEUTROPHIL # (test code = NT#) 7.93 K/mm3 1.8-7.7 H IMMATURE GRANULOCYTE # (test code = IG#) 0.04 x10 3/uL 0-0.03 H LYMPHOCYTE # (test code = LY#) 0.90 K/mm3 1.0-5.0 L MONOCYTE # (test code = MO#) 0.33 K/mm3 0-0.8 N EOSINOPHIL # (test code = EO#) 0.00 K/mm3 0.0-0.5 N BASOPHIL # (test code = BA#) 0.03 K/mm3 0.0-0.2 N NUCLEATED RBC # (test code = NRBC#) 0.00 K/mm3 0.0-0.1 N MANUAL DIFF REQUIRED (test code = MDIFF) NO, ONLY SCAN NEEDED DIFFERENTIAL [id number] 06:14:00* Test Item Value Reference Range Interpretation Comments STAIN ACCEPTABILITY (test code = STN ACCEPTABLE) STAIN ACCEPTABLE POLYCHROMASIA (test code = POLC) 1+ ANISOCYTOSIS (test code = ANISO) 1+ MORPHOLOGY COMMENT (test code = MOC) TEST NOT PERFORMED PLATELET ESTIMATE (test code = PLTEST) ADEQUATE PLATELET MORPHOLOGY (test code = PLTMORPH) NORMAL BASIC METABOLIC [id number] 05:53:00* Test Item Value Reference Range Interpretation Comments SODIUM (test code = NA) 141 mmol/L 136-145 N POTASSIUM (test code = K) 4.4 mmol/L 3.5-5.1 N CHLORIDE (test code = CL) 106.0 mmol/L 98-107 N CARBON DIOXIDE (test code = CO2) 28.0 mmol/L 21-32 N ANION GAP (test code = GAP) 11.4 10-20 N GLUCOSE (test code = GLU) 141 mg/dL 74-106 H BLOOD UREA NITROGEN (test code = BUN) 16 mg/dL 7-18 N GLOMERULAR FILTRATION RATE (test code = GFR) 47 mL/min >=60 Estimated GFR by using Modified MDRD formula.Chronic kidney disease is defined as either kidney damageor GFR <60 mL/min/1.73 m2 for >3 months. CREATININE (test code = CREAT) 1.20 mg/dL 0.55-1.02 H Note change in reference range due to change in reagent. BUN/CREATININE RATIO (test code = BUN/CREA) 13.2 10-20 N CALCIUM (test code = CA) 9.3 mg/dL 8.5-10.1 N BASIC METABOLIC [id number] 05:41:00* Test Item Value Reference Range Interpretation Comments SODIUM (test code = NA) 141 mmol/L 136-145 N POTASSIUM (test code = K) 4.4 mmol/L 3.5-5.1 N CHLORIDE (test code = CL) 106.0 mmol/L 98-107 N CARBON DIOXIDE (test code = CO2) mmol/L 21-32 ANION GAP (test code = GAP) 10-20 GLUCOSE (test code = GLU) mg/dL 74-106 BLOOD UREA NITROGEN (test code = BUN) mg/dL 7-18 GLOMERULAR FILTRATION RATE (test code = GFR) mL/min >=60 CREATININE (test code = CREAT) mg/dL 0.55-1.02 BUN/CREATININE RATIO (test code = BUN/CREA) 10-20 CALCIUM (test code = CA) mg/dL 8.5-10.1 CBC W/AUTO [id number] 05:26:00* Test Item Value Reference Range Interpretation Comments WHITE BLOOD CELL (test code = WBC) 9.2 K/mm3 4.5-12.5 N RED BLOOD CELL (test code = RBC) 3.77 mill/mm3 3.7-5.2 N HEMOGLOBIN (test code = HGB) 10.8 gram/dL 11.5-15.5 L HEMATOCRIT (test code = HCT) 36.2 % 36.0-46.0 N MEAN CELL VOLUME (test code = MCV) 96.0 fL 80-98 N MEAN CELL HGB (test code = MCH) 28.6 picogram 27.0-33.0 N MEAN CELL HGB CONCETRATION (test code = MCHC) 29.8 gram/dL 33.0-36. 0 L RED CELL DISTRIBUTION WIDTH (test code = RDW) 13.6 % 11.6-16. 2 N RED CELL DISTRIBUTION WIDTH SD (test code = RDW-SD) 47.3 fL 37 .0-51.0 N PLATELET COUNT (test code = PLT) 338 K/mm3 150-450 N MEAN PLATELET VOLUME (test code = MPV) 11.4 fL 6.7-11.0 H NEUTROPHIL % (test code = NT%) 85.9 % 39.0-69.0 H IMMATURE GRANULOCYTE % (test code = IG%) 0.4 % 0.0-5.0 N LYMPHOCYTE % (test code = LY%) 9.8 % 25.0-55.0 L MONOCYTE % (test code = MO%) 3.6 % 0.0-10.0 N EOSINOPHIL % (test code = EO%) 0.0 % 0.0-5.0 N BASOPHIL % (test code = BA%) 0.3 % 0.0-1.0 N NUCLEATED RBC % (test code = NRBC%) 0.0 % 0-0 N NEUTROPHIL # (test code = NT#) 7.93 K/mm3 1.8-7.7 H IMMATURE GRANULOCYTE # (test code = IG#) 0.04 x10 3/uL 0-0.03 H LYMPHOCYTE # (test code = LY#) 0.90 K/mm3 1.0-5.0 L MONOCYTE # (test code = MO#) 0.33 K/mm3 0-0.8 N EOSINOPHIL # (test code = EO#) 0.00 K/mm3 0.0-0.5 N BASOPHIL # (test code = BA#) 0.03 K/mm3 0.0-0.2 N NUCLEATED RBC # (test code = NRBC#) 0.00 K/mm3 0.0-0.1 N MANUAL DIFF REQUIRED (test code = MDIFF) NO, ONLY SCAN NEEDED DIFFERENTIAL [id number] 05:26:00* Test Item Value Reference Range Interpretation Comments STAIN ACCEPTABILITY (test code = STN ACCEPTABLE) CABOT RINGS (test code = CAB) MORPHOLOGY COMMENT (test code = MOC) PLATELET ESTIMATE (test code = PLTEST) PLATELET MORPHOLOGY (test code = PLTMORPH) CBC W/AUTO [id number] 05:26:00* Test Item Value Reference Range Interpretation Comments WHITE BLOOD CELL (test code = WBC) 9.2 K/mm3 4.5-12.5 N RED BLOOD CELL (test code = RBC) 3.77 mill/mm3 3.7-5.2 N HEMOGLOBIN (test code = HGB) 10.8 gram/dL 11.5-15.5 L HEMATOCRIT (test code = HCT) 36.2 % 36.0-46.0 N MEAN CELL VOLUME (test code = MCV) 96.0 fL 80-98 N MEAN CELL HGB (test code = MCH) 28.6 picogram 27.0-33.0 N MEAN CELL HGB CONCETRATION (test code = MCHC) 29.8 gram/dL 33.0-36. 0 L RED CELL DISTRIBUTION WIDTH (test code = RDW) 13.6 % 11.6-16. 2 N RED CELL DISTRIBUTION WIDTH SD (test code = RDW-SD) 47.3 fL 37 .0-51.0 N PLATELET COUNT (test code = PLT) 338 K/mm3 150-450 N MEAN PLATELET VOLUME (test code = MPV) 11.4 fL 6.7-11.0 H NEUTROPHIL % (test code = NT%) 85.9 % 39.0-69.0 H IMMATURE GRANULOCYTE % (test code = IG%) 0.4 % 0.0-5.0 N LYMPHOCYTE % (test code = LY%) 9.8 % 25.0-55.0 L MONOCYTE % (test code = MO%) 3.6 % 0.0-10.0 N EOSINOPHIL % (test code = EO%) 0.0 % 0.0-5.0 N BASOPHIL % (test code = BA%) 0.3 % 0.0-1.0 N NUCLEATED RBC % (test code = NRBC%) 0.0 % 0-0 N NEUTROPHIL # (test code = NT#) 7.93 K/mm3 1.8-7.7 H IMMATURE GRANULOCYTE # (test code = IG#) 0.04 x10 3/uL 0-0.03 H LYMPHOCYTE # (test code = LY#) 0.90 K/mm3 1.0-5.0 L MONOCYTE # (test code = MO#) 0.33 K/mm3 0-0.8 N EOSINOPHIL # (test code = EO#) 0.00 K/mm3 0.0-0.5 N BASOPHIL # (test code = BA#) 0.03 K/mm3 0.0-0.2 N NUCLEATED RBC # (test code = NRBC#) 0.00 K/mm3 0.0-0.1 N MANUAL DIFF REQUIRED (test code = MDIFF) NO, ONLY SCAN NEEDED DIFFERENTIAL [id number] 05:26:00* Test Item Value Reference Range Interpretation Comments STAIN ACCEPTABILITY (test code = STN ACCEPTABLE) CABOT RINGS (test code = CAB) MORPHOLOGY COMMENT (test code = MOC) PLATELET ESTIMATE (test code = PLTEST) PLATELET MORPHOLOGY (test code = PLTMORPH) CBC W/AUTO [id number] 05:26:00* Test Item Value Reference Range Interpretation Comments WHITE BLOOD CELL (test code = WBC) 9.2 K/mm3 4.5-12.5 N RED BLOOD CELL (test code = RBC) 3.77 mill/mm3 3.7-5.2 N HEMOGLOBIN (test code = HGB) 10.8 gram/dL 11.5-15.5 L HEMATOCRIT (test code = HCT) 36.2 % 36.0-46.0 N MEAN CELL VOLUME (test code = MCV) 96.0 fL 80-98 N MEAN CELL HGB (test code = MCH) 28.6 picogram 27.0-33.0 N MEAN CELL HGB CONCETRATION (test code = MCHC) 29.8 gram/dL 33.0-36. 0 L RED CELL DISTRIBUTION WIDTH (test code = RDW) 13.6 % 11.6-16. 2 N RED CELL DISTRIBUTION WIDTH SD (test code = RDW-SD) 47.3 fL 37 .0-51.0 N PLATELET COUNT (test code = PLT) 338 K/mm3 150-450 N MEAN PLATELET VOLUME (test code = MPV) 11.4 fL 6.7-11.0 H NEUTROPHIL % (test code = NT%) 85.9 % 39.0-69.0 H IMMATURE GRANULOCYTE % (test code = IG%) 0.4 % 0.0-5.0 N LYMPHOCYTE % (test code = LY%) 9.8 % 25.0-55.0 L MONOCYTE % (test code = MO%) 3.6 % 0.0-10.0 N EOSINOPHIL % (test code = EO%) 0.0 % 0.0-5.0 N BASOPHIL % (test code = BA%) 0.3 % 0.0-1.0 N NUCLEATED RBC % (test code = NRBC%) 0.0 % 0-0 N NEUTROPHIL # (test code = NT#) 7.93 K/mm3 1.8-7.7 H IMMATURE GRANULOCYTE # (test code = IG#) 0.04 x10 3/uL 0-0.03 H LYMPHOCYTE # (test code = LY#) 0.90 K/mm3 1.0-5.0 L MONOCYTE # (test code = MO#) 0.33 K/mm3 0-0.8 N EOSINOPHIL # (test code = EO#) 0.00 K/mm3 0.0-0.5 N BASOPHIL # (test code = BA#) 0.03 K/mm3 0.0-0.2 N NUCLEATED RBC # (test code = NRBC#) 0.00 K/mm3 0.0-0.1 N MANUAL DIFF REQUIRED (test code = MDIFF) NO, ONLY SCAN NEEDED DIFFERENTIAL [id number] 05:26:00* Test Item Value Reference Range Interpretation Comments STAIN ACCEPTABILITY (test code = STN ACCEPTABLE) MORPHOLOGY COMMENT (test code = MOC) PLATELET ESTIMATE (test code = PLTEST) PLATELET MORPHOLOGY (test code = PLTMORPH) CBC W/AUTO [id number] 05:26:00* Test Item Value Reference Range Interpretation Comments WHITE BLOOD CELL (test code = WBC) 9.2 K/mm3 4.5-12.5 N RED BLOOD CELL (test code = RBC) 3.77 mill/mm3 3.7-5.2 N HEMOGLOBIN (test code = HGB) 10.8 gram/dL 11.5-15.5 L HEMATOCRIT (test code = HCT) 36.2 % 36.0-46.0 N MEAN CELL VOLUME (test code = MCV) 96.0 fL 80-98 N MEAN CELL HGB (test code = MCH) 28.6 picogram 27.0-33.0 N MEAN CELL HGB CONCETRATION (test code = MCHC) 29.8 gram/dL 33.0-36. 0 L RED CELL DISTRIBUTION WIDTH (test code = RDW) 13.6 % 11.6-16. 2 N RED CELL DISTRIBUTION WIDTH SD (test code = RDW-SD) 47.3 fL 37 .0-51.0 N PLATELET COUNT (test code = PLT) 338 K/mm3 150-450 N MEAN PLATELET VOLUME (test code = MPV) 11.4 fL 6.7-11.0 H NEUTROPHIL % (test code = NT%) 85.9 % 39.0-69.0 H IMMATURE GRANULOCYTE % (test code = IG%) 0.4 % 0.0-5.0 N LYMPHOCYTE % (test code = LY%) 9.8 % 25.0-55.0 L MONOCYTE % (test code = MO%) 3.6 % 0.0-10.0 N EOSINOPHIL % (test code = EO%) 0.0 % 0.0-5.0 N BASOPHIL % (test code = BA%) 0.3 % 0.0-1.0 N NUCLEATED RBC % (test code = NRBC%) 0.0 % 0-0 N NEUTROPHIL # (test code = NT#) 7.93 K/mm3 1.8-7.7 H IMMATURE GRANULOCYTE # (test code = IG#) 0.04 x10 3/uL 0-0.03 H LYMPHOCYTE # (test code = LY#) 0.90 K/mm3 1.0-5.0 L MONOCYTE # (test code = MO#) 0.33 K/mm3 0-0.8 N EOSINOPHIL # (test code = EO#) 0.00 K/mm3 0.0-0.5 N BASOPHIL # (test code = BA#) 0.03 K/mm3 0.0-0.2 N NUCLEATED RBC # (test code = NRBC#) 0.00 K/mm3 0.0-0.1 N MANUAL DIFF REQUIRED (test code = MDIFF) NO, ONLY SCAN NEEDED DIFFERENTIAL [id number] 05:26:00* Test Item Value Reference Range Interpretation Comments STAIN ACCEPTABILITY (test code = STN ACCEPTABLE) CABOT RINGS (test code = CAB) MORPHOLOGY COMMENT (test code = MOC) PLATELET ESTIMATE (test code = PLTEST) PLATELET MORPHOLOGY (test code = PLTMORPH) Coronavirus 2019 nCoV [id number] 10:17:00* Test Item Value Reference Range Interpretation Comments Coronavirus 2019 nCoV Bedside (test code = COVNONPUIBED) Negative BASIC METABOLIC [id number] 02:24:00* Test Item Value Reference Range Interpretation Comments SODIUM (test code = NA) 145 mmol/L 136-145 N POTASSIUM (test code = K) 4.0 mmol/L 3.5-5.1 N CHLORIDE (test code = CL) 109.0 mmol/L 98-107 H CARBON DIOXIDE (test code = CO2) 29.0 mmol/L 21-32 N ANION GAP (test code = GAP) 11.0 10-20 N GLUCOSE (test code = GLU) 109 mg/dL 74-106 H BLOOD UREA NITROGEN (test code = BUN) 22 mg/dL 7-18 H GLOMERULAR FILTRATION RATE (test code = GFR) 31 mL/min >=60 Estimated GFR by using Modified MDRD formula.Chronic kidney disease is defined as either kidney damageor GFR <60 mL/min/1.73 m2 for >3 months. CREATININE (test code = CREAT) 1.70 mg/dL 0.55-1.02 H Note change in reference range due to change in reagent. BUN/CREATININE RATIO (test code = BUN/CREA) 13.1 10-20 N CALCIUM (test code = CA) 9.0 mg/dL 8.5-10.1 N HEPATIC FUNCTION [id number] 02:24:00* Test Item Value Reference Range Interpretation Comments TOTAL PROTEIN (test code = PROT) 8.0 gram/dL 6.4-8.2 N ALBUMIN (test code = ALB) 3.5 g/dL 3.4-5.0 N GLOBULIN (test code = GLOB) 4.5 gram/dL 2.7-4.2 H ALBUMIN/GLOBULIN RATIO (test code = A/G) 0.8 0.75-1.50 N BILIRUBIN TOTAL (test code = BILT) 0.20 mg/dL 0.0-1.0 N BILIRUBIN DIRECT (test code = BILD) 0.06 mg/dL 0.0-0.20 N SGOT/AST (test code = AST) 25 IUnit/L 15-37 N SGPT/ALT (test code = ALT) 27 IUnit/L 12-78 N ALKALINE PHOSPHATASE TOTAL (test code = ALKP) 125 IUnit/L 45-117 H Note change in reference range due to change in reagent. [id number] 02:24:00* Test Item Value Reference Range Interpretation Comments LIPASE (test code = LIP) 408 U/L 73.0-393.0 H HCG SERUM [id number] 02:24:00* Test Item Value Reference Range Interpretation Comments HCG SERUM QUAL (test code = HCGQL) NEGATIVE NEGATIVE This HCGQL test is NOT applicable for MALE patients.Check with nurse about probable order error.If Tumor Marker Test needed, nurse should order test "HCGTU"(Test #550.07366) BASIC METABOLIC [id number] 02:21:00* Test Item Value Reference Range Interpretation Comments SODIUM (test code = NA) 145 mmol/L 136-145 N POTASSIUM (test code = K) 4.0 mmol/L 3.5-5.1 N CHLORIDE (test code = CL) 109.0 mmol/L 98-107 H CARBON DIOXIDE (test code = CO2) mmol/L 21-32 ANION GAP (test code = GAP) 10-20 GLUCOSE (test code = GLU) mg/dL 74-106 BLOOD UREA NITROGEN (test code = BUN) mg/dL 7-18 GLOMERULAR FILTRATION RATE (test code = GFR) mL/min >=60 CREATININE (test code = CREAT) mg/dL 0.55-1.02 BUN/CREATININE RATIO (test code = BUN/CREA) 10-20 CALCIUM (test code = CA) mg/dL 8.5-10.1 HEPATIC FUNCTION [id number] 02:21:00* Test Item Value Reference Range Interpretation Comments TOTAL PROTEIN (test code = PROT) gram/dL 6.4-8.2 ALBUMIN (test code = ALB) g/dL 3.4-5.0 GLOBULIN (test code = GLOB) gram/dL 2.7-4.2 ALBUMIN/GLOBULIN RATIO (test code = A/G) 0.75-1.50 BILIRUBIN TOTAL (test code = BILT) mg/dL 0.0-1.0 BILIRUBIN DIRECT (test code = BILD) mg/dL 0.0-0.20 SGOT/AST (test code = AST) IUnit/L 15-37 SGPT/ALT (test code = ALT) IUnit/L 12-78 ALKALINE PHOSPHATASE TOTAL (test code = ALKP) IUnit/L 45-117 [id number] 02:21:00* Test Item Value Reference Range Interpretation Comments LIPASE (test code = LIP) U/L 73.0-393.0 HCG SERUM [id number] 02:21:00* Test Item Value Reference Range Interpretation Comments HCG SERUM QUAL (test code = HCGQL) NEGATIVE NEGATIVE This HCGQL test is NOT applicable for MALE patients.Check with nurse about probable order error.If Tumor Marker Test needed, nurse should order test "HCGTU"(Test #550.45921) BASIC METABOLIC [id number] 02:17:00* Test Item Value Reference Range Interpretation Comments SODIUM (test code = NA) 145 mmol/L 136-145 N POTASSIUM (test code = K) 4.0 mmol/L 3.5-5.1 N CHLORIDE (test code = CL) 109.0 mmol/L 98-107 H CARBON DIOXIDE (test code = CO2) mmol/L 21-32 ANION GAP (test code = GAP) 10-20 GLUCOSE (test code = GLU) mg/dL 74-106 BLOOD UREA NITROGEN (test code = BUN) mg/dL 7-18 GLOMERULAR FILTRATION RATE (test code = GFR) mL/min >=60 CREATININE (test code = CREAT) mg/dL 0.55-1.02 BUN/CREATININE RATIO (test code = BUN/CREA) 10-20 CALCIUM (test code = CA) mg/dL 8.5-10.1 HEPATIC FUNCTION [id number] 02:17:00* Test Item Value Reference Range Interpretation Comments TOTAL PROTEIN (test code = PROT) gram/dL 6.4-8.2 ALBUMIN (test code = ALB) g/dL 3.4-5.0 GLOBULIN (test code = GLOB) gram/dL 2.7-4.2 ALBUMIN/GLOBULIN RATIO (test code = A/G) 0.75-1.50 BILIRUBIN TOTAL (test code = BILT) mg/dL 0.0-1.0 BILIRUBIN DIRECT (test code = BILD) mg/dL 0.0-0.20 SGOT/AST (test code = AST) IUnit/L 15-37 SGPT/ALT (test code = ALT) IUnit/L 12-78 ALKALINE PHOSPHATASE TOTAL (test code = ALKP) IUnit/L 45-117 [id number] 02:17:00* Test Item Value Reference Range Interpretation Comments LIPASE (test code = LIP) U/L 73.0-393.0 HCG SERUM [id number] 02:17:00* Test Item Value Reference Range Interpretation Comments HCG SERUM QUAL (test code = HCGQL) NEGATIVE PROTHROMBIN [id number] 01:44:00* Test Item Value Reference Range Interpretation Comments PROTHROMBIN TIME PATIENT (test code = PTP) 11.1 seconds 9.0-14.0 N INTERNATIONAL NORMAL RATIO (test code = INR) 0.9 0.8-1.2 N The therapeutic range for oral anticoagulant therapy formost indications is an international normalized ratio (INR)of between 2.0 and 3.0. The recommended therapeutic INRrange for various clinical situations is listed below: Clinical Situation INR range Pulmonary e mbolism treatment (2.0-3.0)Venous thrombosis treatmentVenous thrombosis prophylaxis (high risk surgery)Prevention of systemic embolism from: Acute myocardial infarction Valvular heart disease Atrial fibrillation Mechanical prosthetic heart valves (2.5-3.5) IS PATIENT ON ANTICOAGULANTS? NTHROMBOPLASTIN TIME [id number] 01:44:00* Test Item Value Reference Range Interpretation Comments THROMBOPLASTIN TIME PARTIAL (test code = PTT) 34.1 seconds 23.0-37. 0 N IS PATIENT ON ANTICOAGULANTS? NCBC W/O [id number] 01:36:00* Test Item Value Reference Range Interpretation Comments WHITE BLOOD CELL (test code = WBC) 8.9 K/mm3 4.5-12.5 N RED BLOOD CELL (test code = RBC) 3.89 mill/mm3 3.7-5.2 N HEMOGLOBIN (test code = HGB) 11.3 gram/dL 11.5-15.5 L HEMATOCRIT (test code = HCT) 37.5 % 36.0-46.0 N MEAN CELL VOLUME (test code = MCV) 96.4 fL 80-98 N MEAN CELL HGB (test code = MCH) 29.0 picogram 27.0-33.0 N MEAN CELL HGB CONCETRATION (test code = MCHC) 30.1 gram/dL 33.0-36. 0 L RED CELL DISTRIBUTION WIDTH (test code = RDW) 13.7 % 11.6-16. 2 N PLATELET COUNT (test code = PLT) 387 K/mm3 150-450 N MEAN PLATELET VOLUME (test code = MPV) 11.2 fL 6.7-11.0 H - CT ABD PELVIS W/O [id number] 00:57:00 Name: SHAKA MOORE [facility] : 1965 Age/S: 54 / F [address] [facility] Unit #: [id number] Loc: [place] [address] Phys: Kelton Cote MD Acct: [id number] Dis Date: Status: REG ER PHONE #: [phone] Exam Date: 12/23/2019 0037 FAX #: [phone] Reason: hematuria, L flank pain EXAMS: CPT CODE: [id number] CT ABD PELVIS W/O CONT 31000 AFTER HOURS SERVICE ON: 12/23/2019 12:[address] Scan of the Abdomen and Pelvis Without Contrast Location Code M12 History: hematuria, L flank pain Technique: Axial and reconstructed coronal scans were performed on a helical scanner pre oral and IV contrast. Study is limited secondary to lack of oral and IV contrast. One or more of the following dose reduction techniques were used: Automated exposure control, adjustment of the mA and/or kV according to patient size, and/or utilization of iterative reconstruction technique. Findings: Left kidney is surgically absent. There is stranding in the left renal fossa and mild fluid tracking along the retroperitoneal space anterior to psoas muscle. Right kidney is unremarkable. There is no nephrolithiasis or hydronephrosis. Adrenal glands are unremarkable. High density material is noted in the urinary bladder similar to the prior CT of 11/26/2019. T here is a suspected underlying calcified mass measuring 3.6 x 3.6 cm along the posterior bladder wall. There is no pelvic free fluid. Small calcif ied uterine fibroid is again noted. Liver is hypodense consistent with steatosis. Gallbladder is surgically absent. Spleen is surgically a bsent. There are no peripancreatic inflammatory changes. Bowel loops are unremarkable. There is no obstruction, inflammatory changes or free air. IMPRESSION: Mild stranding in the left upper quadrant within the splenic and left renal fossa status post splenectomy and left nephrectomy. Mild fluid in the left retroperitoneal space tra cking anterior to the psoas muscle. It may be normal postoperative wilson ges, however a urine leak is not excluded. Consider further evaluation with IV contrast. Suspected partially calcified 3.6 cm mass in the posterior bladder. This can also be further evaluated with IV cont rast with the addition of delayed images. PAGE 1 Signed Report (CONTINUED) Name: SHAKA MOORE [facility] : 1965 Age/S: 54 / F [address] [facility] Unit #: [id number] Loc: [place] [address] Phys: Kelton Cote MD Acct: [id number] Dis Date: Status: REG ER PHONE #: [phone] Exam Date: 12/23/2019 0037 FAX #: [phone] Reason: jaquan turia, L flank pain EXAMS: CPT CODE: [id number] CT ABD PELVIS W/O CONT 33771 <Continued> at 0057 Reported and signed by: Cammie Aguilera M.D. CC: Kelton Cote MD Technologist:Michael Price, RT(R)(CT) CTDI: DLP: Trnscb Date/Time: 12/23/2019 (005) [email or web address] Orig Print D/T: S: 12/23/2019 (010) PAGE 2 Signed Report URINALYSIS [id number] 00:02:00* Test Item Value Reference Range Interpretation Comments UA COLOR (test code = COLU) BLOODY YELLOW A Previously reported result: BLOODY Edited by: [email or web address] on 12/23/19:2108 UA APPEARANCE (test code = APPU) TURBID CLEAR A UA GLUCOSE DIPSTICK (test code = DGLUU) NEGATIVE mg/dL NEGATIVE UA BILIRUBIN DIPSTICK (test code = BILU) NEGATIVE mg/dL NEGATIVE UA KETONE DIPSTICK (test code = KETU) NEGATIVE mg/dL NEGATIVE UA SPECIFIC GRAVITY (test code = SGU) 1.010 1.001-1.035 UA BLOOD DIPSTICK (test code = KEVIN) 1.0 mg/dL (3+) mg/dL NEGATIVE A UA PH DIPSTICK (test code = TONNY) 7.5 5.0-8.0 UA PROTEIN DIPSTICK (test code = PROU) 200 (2+) mg/dL NEGATIVE A UA UROBILINIOGEN DIPSTICK (test code = URO) Normal mg/dL NEGATIVE UA NITRITE DIPSTICK (test code = JAMAICA) NEGATIVE NEGATIVE UA LEUKOCYTE ESTERASE W REFLEX (test code = LEUUR) 75 Suraj/uL (1+) Suraj/uL NEGATIVE A UA WBC (test code = WBCU) 21-50 per HPF 0-5 A UA RBC (test code = RBCU) >200 #/HPF 0-5 UA EPITHELIAL CELLS (test code = EPIU) Few (2-5/hpf) per HPF Few UA BACTERIA (test code = BACU) FEW #/HPF NONE A Urine Source? Clean CatchURINALYSIS [id number] 00:01:00* Test Item Value Reference Range Interpretation Comments UA COLOR (test code = COLU) YELLOW Previously reported result: BLOODY Edited by: [email or web address] on 12/23/19:2108 UA APPEARANCE (test code = APPU) TURBID CLEAR A UA GLUCOSE DIPSTICK (test code = DGLUU) NEGATIVE mg/dL NEGATIVE UA BILIRUBIN DIPSTICK (test code = BILU) NEGATIVE mg/dL NEGATIVE UA KETONE DIPSTICK (test code = KETU) NEGATIVE mg/dL NEGATIVE UA SPECIFIC GRAVITY (test code = SGU) 1.010 1.001-1.035 UA BLOOD DIPSTICK (test code = KEVIN) 1.0 mg/dL (3+) mg/dL NEGATIVE A UA PH DIPSTICK (test code = TONNY) 7.5 5.0-8.0 UA PROTEIN DIPSTICK (test code = PROU) 200 (2+) mg/dL NEGATIVE A UA UROBILINIOGEN DIPSTICK (test code = URO) Normal mg/dL NEGATIVE UA NITRITE DIPSTICK (test code = JAMAICA) NEGATIVE NEGATIVE UA LEUKOCYTE ESTERASE W REFLEX (test code = LEUUR) 75 Suraj/uL (1+) Suraj/uL NEGATIVE A UA WBC (test code = WBCU) 21-50 per HPF 0-5 A UA RBC (test code = RBCU) >200 #/HPF 0-5 UA EPITHELIAL CELLS (test code = EPIU) Few (2-5/hpf) per HPF Few UA BACTERIA (test code = BACU) FEW #/HPF NONE A Urine Source? Clean CatchURINALYSIS [id number] 00:00:00* Test Item Value Reference Range Interpretation Comments UA COLOR (test code = COLU) BLOODY YELLOW A UA APPEARANCE (test code = APPU) CLEAR UA BILIRUBIN DIPSTICK (test code = BILU) NEGATIVE UA SPECIFIC GRAVITY (test code = SGU) 1.001-1.035 UA PH DIPSTICK (test code = TONNY) 5.0-8.0 UA UROBILINIOGEN DIPSTICK (test code = URO) mg/dL 0.0-0.2 UA NITRITE DIPSTICK (test code = JAMAICA) NEGATIVE UA LEUKOCYTE ESTERASE W REFLEX (test code = LEUUR) NEG ATIVE UA WBC (test code = WBCU) per HPF 0-5 UA RBC (test code = RBCU) per HPF 0-5 UA EPITHELIAL CELLS (test code = EPIU) per HPF Few UA BACTERIA (test code = BACU) per HPF NONE Urine Source? Clean CatchBlood leukocytes automated count (number/volume) 2019-12-05 04:50:00* Test Item Value Reference Range Interpretation Comments White Blood Count (test code = 6690-2) 10.90 4.8-10.8 [facility] automated count (number/volume)2019-12-05 04:50:00* Test Item Value Reference Range Interpretation Comments Red Blood Count (test code = 789-8) 3.11 3.6-5.1 [facility]Blood hemoglobin measurement (moles/volume)2019-12-05 04:50:00* Test Item Value Reference Range Interpretation Comments Hemoglobin (test code = 36558-1) 9.0 12.0-16.0 [facility] HospitalAutomated blood hematocrit (volume fraction)2019-12-05 04:50:00* Test Item Value Reference Range Interpretation Comments Hematocrit (test code = 4544-3) 29.1 34.2-44.1 [facility] HospitalAutomated erythrocyte mean corpuscular [id number] 04:50:00* Test Item Value Reference Range Interpretation Comments Mean Corpuscular Volume (test code = 787-2) 93.6 81-99 [facility] HospitalAutomated erythrocyte mean corpuscular hemoglobin (mass per erythrocyte)2019-12-05 04:50:00* Test Item Value Reference Range Interpretation Comments Mean Corpuscular Hemoglobin (test code = 785-6) 28.9 28-32 [facility] HospitalAutomated erythrocyte mean corpuscular hemoglobin concentration measurement (mass/volume)2019-12-05 04:50:00* Test Item Value Reference Range Interpretation Comments Mean Corpuscular Hemoglobin Concent (test code = 786-4) 30.9 31-35 [facility] HospitalRDW CrlXi-Ekq9952-64-28 04:50:00* Test Item Value Reference Range Interpretation Comments Red Cell Distribution Width (test code = 48407-2) 12.1 11.7 -14.4 [facility] HospitalAutomated blood platelet count (count/volume)2019-12-05 04:50:00* Test Item Value Reference Range Interpretation Comments Platelet Count (test code = 777-3) 318 140-360 [facility] HospitalAutomated blood segmented neutrophil count as percentage of total ptsykrrfui5828-22-68 04:50:00* Test Item Value Reference Range Interpretation Comments Neutrophils (%) (Auto) (test code = 54929-1) 68.6 38.7-80.0 [facility] HospitalAutomated blood lymphocyte count as percentage ot total jpahfkrvrr0353-40-82 04:50:00* Test Item Value Reference Range Interpretation Comments Lymphocytes (%) (Auto) (test code = 736-9) 13.8 18.0-39.1 [facility] HospitalAutomated blood monocyte count as percentage of total wkkuncdyjs6973-56-47 04:50:00* Test Item Value Reference Range Interpretation Comments Monocytes (%) (Auto) (test code = 5905-5) 13.3 4.4-11.3 [facility] HospitalAutomated blood eosinophil count as percentage of total lvmljrdvuk2064-87-13 04:50:00* Test Item Value Reference Range Interpretation Comments Eosinophils (%) (Auto) (test code = 713-8) 3.1 0.0-6.0 [facility] HospitalAutomated blood basophil count as percentage of total rmmjledmyk4979-60-04 04:50:00* Test Item Value Reference Range Interpretation Comments Basophils (%) (Auto) (test code = 706-2) 0.6 0.0-1.0 [facility] HospitalFluoroscopic procedure less than one hour cypgsmjp9237-10-56 04:50:00* Test Item Value Reference Range Interpretation Comments IM GRANULOCYTES % (test code = IM GRANULOCYTES %) 0.6 0.0- 1.0 [facility] HospitalAutomated blood neutrophil count 2019-12-05 04:50:00* Test Item Value Reference Range Interpretation Comments Neutrophils # (Auto) (test code = 751-8) 7.5 2.1-6.9 [facility] HospitalBlood lymphocytes count (number/volume) 2019-12-05 04:50:00* Test Item Value Reference Range Interpretation Comments Lymphocytes # (Auto) (test code = 61335-7) 1.5 1.0-3.2 [facility] HospitalBlood monocytes automated count (number/volume)2019-12-05 04:50:00* Test Item Value Reference Range Interpretation Comments Monocytes # (Auto) (test code = 742-7) 1.5 0.2-0.8 [facility] HospitalAutomated blood eosinophil count 2019-12-05 04:50:00* Test Item Value Reference Range Interpretation Comments Eosinophils # (Auto) (test code = 711-2) 0.3 0.0-0.4 [facility] HospitalAutomated blood basophil count (count/volume)2019-12-05 04:50:00* Test Item Value Reference Range Interpretation Comments Basophils # (Auto) (test code = 704-7) 0.1 0.0-0.1 [facility] HospitalFluoroscopic procedure less than one hour dfhmchnj7131-49-38 04:50:00* Test Item Value Reference Range Interpretation Comments Absolute Immature Granulocyte (auto (arminda t code = Absolute Immature Granulocyte (auto) 0.07 0-0.1 [facility] or plasma sodium measurement (moles/volume)2019-12-05 04:50:00* Test Item Value Reference Range Interpretation Comments Sodium Level (test code = 2951-2) 137 136-145 [facility] Antonioerum or plasma potassium measurement (moles/volume)2019-12-05 04:50:00* Test Item Value Reference Range Interpretation Comments Potassium Level (test code = 2823-3) 3.6 3.5-5.1 [facility] Antonioerum or plasma chloride measurement (moles/volume)2019-12-05 04:50:00* Test Item Value Reference Range Interpretation Comments Chloride Level (test code = 2075-0) 106 98-107 [facility] Antonioerum or plasma carbon dioxide, total measurement (moles/volume)2019-12-05 04:50:00* Test Item Value Reference Range Interpretation Comments Carbon Dioxide Level (test code = 2028-9) 23 22-29 [facility] Antonioerum or plasma anion wfl5610-14-87 04:50:00* Test Item Value Reference Range Interpretation Comments Anion Gap (test code = 49984-5) 11.6 8-16 [facility] Antonioerum or plasma urea nitrogen measurement (mass/volume)2019-12-05 04:50:00* Test Item Value Reference Range Interpretation Comments Blood Urea Nitrogen (test code = 3094-0) 7 - [facility] Antonioerum or plasma creatinine measurement (mass/volume)2019-12-05 04:50:00* Test Item Value Reference Range Interpretation Comments Creatinine (test code = 2160-0) 0.98 0.57-1.11 [facility] Antonioerum or plasma urea nitrogen/creatinine mass iyknh5888-94-74 04:50:00* Test Item Value Reference Range Interpretation Comments BUN/Creatinine Ratio (test code = 3097-3) 7 01-01 [facility] HospitalEstimated glomerular filtration rate (GFR) ilgarnzttvpzf5901-10-09 04:50:00* Test Item Value Reference Range Interpretation Comments Estimat Glomerular Filtration Rate (test code = 412947145) 59 >60 Ranges were taken from the National Kidney Disease Education Program and the [facility] Kid[facility] Foundation literature.Reference ranges:60 or greater: Aguoco46-19 ( for 3 consecutive months): Chronic kidney disease 15 or less: Kidney failureLegent Orthopedic HospitalGlucose gofgkgqzdcx2409-38-81 04:50:00* Test Item Value Reference Range Interpretation Comments Glucose Level (test code = OYT7847) 119 74-118 [facility] Antonioerum or plasma calcium measurement (mass/volume)2019-12-05 04:50:00* Test Item Value Reference Range Interpretation Comments Calcium Level (test code = 21743-6) 8.4 8.4-10.2 [facility] HospitalCHEST SINGLE (PORTABLE)2019-12-04 21:08:00 [place] [address] Patient Name: SHAKA MOORE MR #: [id number] : 1965 Age/Sex: 54/F Req #: [id number] Adm Physician: REI GEORGE MD Ordered by: ARACELI QUIROZ NP Report #: [id number] Location: [facility] Room/Bed: [address] Procedure: [id number] DX/CHEST S BROOKS (PORTABLE) Exam Date: 12/04/19 Exam Time: 2039 REPORT STATUS: Signed EXAMINATI ON: CHEST SINGLE (PORTABLE) INDICATION: Fever COMPARISON: c hest x-ray 11/29/2019 FINDINGS: TUBES and LINES: None. L UNGS: Low lung volumes. Bibasilar haziness. No consolidations. PLEURA: No pleural effusion or pneumothorax. HEART AND MEDIASTINUM: The cardiomedi astinal silhouette is unremarkable. BONES AND SOFT TISSUES: No acute o sseous lesion. Soft tissues are unremarkable. UPPER ABDOMEN: No free air under the diaphragm. IMPRESSION: Low lung lines. Bibasilar hazin ess can be due to atelectasis or pneumonia. Signed by: Joy Farr on 12/04/2019 9:09 PM Dictated By: ROSA DANIELS DO Electronically S igned By: ROSA DANIELS DO on 12/04/192108 Transcribed By: MELANIE on 12/03 COPY TO: ARACELI QUIROZ C 13 [employer] Serum or plasma magnesium measurement (mass/volume)2019-12-04 04:30:00* Test Item Value Reference Range Interpretation Comments Magnesium Level (test code = 27143-8) 2.0 1.3-2.1 [facility] HospitalBlood platelets count by estimate (number/volume)2019-12-02 08:28:00* Test Item Value Reference Range Interpretation Comments Platelet Estimate (test code = 90354-6) SLIGHTLY DECREASED [facility] HospitalPlatelet urgdrdazsk2759-76-94 08:28:00* Test Item Value Reference Range Interpretation Comments Platelet Morphology Comment (test code = 23448-2) FEW EDTA CLUMPING [facility] HospitalRB imptzetidr0607-33-91 08:28:00* Test Item Value Reference Range Interpretation Comments Red Cell Morphology Comment (test code = 6742-1) NORMAL [facility] HospitalBlood platelets count by estimate (number/volume)2019-12-02 08:28:00* Test Item Value Reference Range Interpretation Comments Platelet Estimate (test code = 56996-5) SLIGHTLY DECREASED [facility] HospitalPlatelet uphbgqnver5373-16-36 08:28:00* Test Item Value Reference Range Interpretation Comments Platelet Morphology Comment (test code = 18061-1) FEW EDTA CLUMPING [facility] HospitalRB hzkoapomia7747-39-09 08:28:00* Test Item Value Reference Range Interpretation Comments Red Cell Morphology Comment (test code = 6742-1) NORMAL [facility] HospitalProthrombin time (PT) in platelet poor plasma by coagulation xfuov2706-45-95 05:35:00* Test Item Value Reference Range Interpretation Comments Prothrombin Time (test code = 5902-2) 13.1 11.9-14.5 [facility] HospitalINR in Platelet poor plasma by Coagulation twrwg8635-00-86 05:35:00* Test Item Value Reference Range Interpretation Comments Prothromb Time International Ratio (test code = 6301-6) 0.94 Oral Anticoagulant Therapy INR Values:1. Low Intensity Therapy 1.5 - 2.02 . Moderate Intensity Therapy 2.0 - 3.03. High Intensity Therapy(1) 2.5 - 3. 54. High Intensity Therapy(2) 3.0 - 4.05. Panic Value INR > 5.0 [facility] HospitalActivated partial thromboplastin time (aPTT) in platelet poor plasma by coagulation pqbdm2017-42-68 05:35:00* Test Item Value Reference Range Interpretation Comments Activated Partial Thromboplast Time (test code = 37130-5) 28.5 23.8-35.5 [facility] Antonioerum or plasma total bilirubin measurement (mass/volume)2019-11-30 05:35:00* Test Item Value Reference Range Interpretation Comments Total Bilirubin (test code = 1975-2) 1.1 0.2-1.2 [facility] HospitalFluoroscopic procedure less than one hour mqiqjbuu2173-82-82 05:35:00* Test Item Value Reference Range Interpretation Comments Aspartate Amino Transf (AST/SGOT) (test code = Aspartate Amino Transf (AST/SGOT)) 89 5-34 [facility] Antonioerum or plasma alanine aminotransferase measurement (enzymatic activity/volume)2019-11-30 05:35:00* Test Item Value Reference Range Interpretation Comments Alanine Aminotransferase (ALT/SGPT) (test code = 1742-6) 41 0-55 [facility] Antonioerum or plasma protein measurement (mass/volume)2019-11-30 05:35:00* Test Item Value Reference Range Interpretation Comments Total Protein (test code = 2885-2) 7.2 6.5-8.1 [facility] Antonioerum or plasma albumin measurement (mass/volume)2019-11-30 05:35:00* Test Item Value Reference Range Interpretation Comments Albumin (test code = 1751-7) 3.7 3.5-5.0 [facility] HospitalPlasma globulin measurement (mass/volume) 2019-11-30 05:35:00* Test Item Value Reference Range Interpretation Comments Globulin (test code = 52965-5) 3.5 2.3-3.5 [facility] Antonioerum or plasma albumin/globulin mass nmlyg4137-55-37 05:35:00* Test Item Value Reference Range Interpretation Comments Albumin/Globulin Ratio (test code = 1759-0) 1.1 0.8-2.0 [facility] Antonio[facility]um or plasma alkaline phosphatase measurement (enzymatic activity/volume)2019-11-30 05:35:00* Test Item Value Reference Range Interpretation Comments Alkaline Phosphatase (test code = 6768-6) 88 40-150 [facility] Antonioerum or plasma thyrotropin measurement by detection limit <= 0.005 miu/l (units/volume)2019-11-30 05:35:00* Test Item Value Reference Range Interpretation Comments Thyroid Stimulating Hormone (TSH) (test code = 39912-6) 4.019 0.350-4.940 [facility] Antonioerum or plasma thyrotropin measurement by detection limit <= 0.005 miu/l (units/volume)2019-11-30 05:35:00* Test Item Value Reference Range Interpretation Comments Thyroid Stimulating Hormone (TSH) (test code = 84910-4) 4.019 0.350-4.940 [facility] HospitalCHE[facility] SINGLE (PORTABLE)2019-11-29 15:40:00 [facility] [address] [place] [address] Patient Name: SHAKA MOORE MR #: [id number] : 1965 Age/Sex: 54/F Req #: [id number] Adm Physician: REI GEORGE MD Ordered by: NATALYA BERNABE DO Report #: [id number] Location: [facility] Room/Bed: [place] [address] Procedure: [id number] DX/CHEST SINGLE (PORTABLE) Exam Date: 11/29/19 Exam Time: 14 25 REPORT STATUS: Signed Exam: C hest radiograph Clinical History: Hematuria Findings: The cardiom ediastinal silhouette and lungs are normal. The regional skeleton and soft tis meryl are unremarkable. There is no evidence of pleural effusion or pneumothora x. Impression: No radiographic evidence of acute cardiopulmonary disea se. Signed by: Dr. Michael Claire MD on 11/29/2019 3:40 PM Dictated By: GRISEL CLAIRE MD 330 Transcribed By: MELANIE on 11/29/191539 COPY TO: NATALYA BERNABE DO Urine color kjwfcyugrmisd8009-30-89 14:10:00* Test Item Value Reference Range Interpretation Comments Urine Color (test code = 5778-6) BAUTISTA YELLOW [facility] HospitalUrine iawxrwo2353-42-25 14:10:00* Test Item Value Reference Range Interpretation Comments Urine Clarity (test code = 59674-0) CLOUDY CLEAR [facility] Antoniopecific gravity of Urine by Test strip 2019-11-29 14:10:00* Test Item Value Reference Range Interpretation Comments Urine Specific [place] (test code = 5811-5) 1.030 1.010-1.02 5 [facility] HospitalUrine pH measurement by automated test fiidz8889-68-64 14:10:00* Test Item Value Reference Range Interpretation Comments Urine pH (test code = 94326-2) 6 5-7 [facility] HospitalUrine leukocyte esterase detection by lkwvkndn3653-06-28 14:10:00* Test Item Value Reference Range Interpretation Comments Urine Leukocyte Esterase (test code = 5799-2) NEGATIVE NEGATIVE [facility] HospitalUrine nitrite pblfzqgpp7880-71-32 14:10:00* Test Item Value Reference Range Interpretation Comments Urine Nitrite (test code = 02286-6) NEGATIVE NEGATIVE [facility] HospitalUrine protein measurement by test strip (mass/volume)2019-11-29 14:10:00* Test Item Value Reference Range Interpretation Comments Urine Protein (test code = 5804-0) >=300 NEGATIVE [facility] HospitalUrine glucose qlasiftkz9571-17-16 14:10:00* Test Item Value Reference Range Interpretation Comments Urine Glucose (UA) (test code = 2349-9) NEGATIVE NEGATIVE [facility] HospitalUrine ketones detection by automated test cqdqa5581-35-70 14:10:00* Test Item Value Reference Range Interpretation Comments Urine Ketones (test code = 27562-7) NEGATIVE NEGATIVE [facility] HospitalUrine urobilinogen measurement by test strip (mass/volume)2019-11-29 14:10:00* Test Item Value Reference Range Interpretation Comments Urine Urobilinogen (test code = 45759-3) 0.2 0.2-1 [facility] HospitalUrine total bilirubin measurement (mass/volume)2019-11-29 14:10:00* Test Item Value Reference Range Interpretation Comments Urine Bilirubin (test code = 1978-6) NEGATIVE NEGATIVE [facility] HospitalUrine erythrocytes rlntzwzem0154-13-48 14:10:00* Test Item Value Reference Range Interpretation Comments Urine Blood (test code = 94613-9) LARGE NEGATIVE [facility] HospitalAutomated urine sediment leukocyte count by microscopy (number/high power field)2019-11-29 14:10:00* Test Item Value Reference Range Interpretation Comments Urine WBC (test code = 5821-4) NONE 0-5 [facility] HospitalErythrocytes detection in urine sediment by light uygkutzikf4299-83-38 14:10:00* Test Item Value Reference Range Interpretation Comments Urine RBC (test code = 88191-6) >50 0-5 [facility] HospitalBacteria detection in urine sediment by light ktfkedohqg9984-69-96 14:10:00* Test Item Value Reference Range Interpretation Comments Urine Bacteria (test code = 34879-3) MODERATE NONE [facility] HospitalEpithelial cells detection in urine sediment by light xyliylztgd5797-34-08 14:10:00* Test Item Value Reference Range Interpretation Comments Urine Epithelial Cells (test code = 17036-1) NONE NONE [facility] HospitalUrine human chorionic gonadotropin (hCG) jvajrxoux6827-86-50 14:10:00* Test Item Value Reference Range Interpretation Comments Urine Test (test code = 2106-3) NEGATIVE NEGATIVE [facility] Antonioerum or plasma creatine kinase measurement (enzymatic activity/volume)2019-11-29 14:10:00* Test Item Value Reference Range Interpretation Comments Creatine Kinase (test code = 2157-6) 29 29-168 [facility] Antonio[facility]um or plasma creatine kinase MB measurement (mass/volume)2019-11-29 14:10:00* Test Item Value Reference Range Interpretation Comments Creatine Kinase MB (test code = 61060-2) 0.40 0-5.0 [facility] HospitalTroponin I measurement by highly sensitive enzyme aqucxjahgld0392-61-33 14:10:00* Test Item Value Reference Range Interpretation Comments Troponin I (test code = 62423-9) < 0.001 0-0.300 [facility] less than one hour djjjmtie5862-40-19 14:10:00* Test Item Value Reference Range Interpretation Comments Coronavirus (PCR) (test code = Coronavirus (PCR)) NOT DETECTED NOTD ETECTED SARS-COV-2 (COVID19), HIGHRISK, RT-PCRNegative results do not preclude SARS-CoV- 2 infection and should not be used as the sole basis for patient management deci sions. Negative results must be combined with clinical observations, patient his tory, and epidemiological information. Optimum specimen types and timing for pea k viral levels during infections caused by SARS-CoV-2 have not been determined. Collection of multiple specimens ot types of specimens may be necessary to detec t virus. Improper specimen collection and handling, sequence variability under p rimers/probes, or organism present below the limit of detection may lead to fals e negative results. Positive and negative predictive values of testing are highl y dependent on prevalance. False negative test results are more likely when prev alence is high.The expected result is negative (not detected).The SARS-CoV-2 arminda t is intended for the qualitative detection of nucleic acid from SARS-CoV-2 in n asopharyngeal and oropharyngeal swab samples from patients who meet COVID-19 cli nical and or epidemiological criteria. For lower respiratory tract specimens, th e assay is submitted for authoriztion by FDA under an Emergency Use Authorizatio n (EUA). Testing methodology is real time RT-PCR. If received as separate collec tion devices, nasopharygeal and oropharyngeal specimens are combined for analysi s. Additional specimens may be split to a separate accession for analysi and rep orting as this test includes a single unit of service.Test results must be corre lated with clinical presentation and evaluated in the context of other laborator y and epidemiologic data. Test performance can be affected because the epidemiol ogy and clinical spectrum of infection caused by SARS-CoV-2 is not fully known. For example, the optimum types of specimens to collect and when during the cours e of infection these specimens are most likely to contain detectable viral RNA m ay not be known.This test has not been Food and Drug Administration (FDA) cleare d or approved and has been authorized by FDA under an Emergency Use Authorizatio n (EUA). The test is only authorized for the duration of the declaration that ci rcumstances exist justifying the authorization of emergency use of in vitro diag nostic tests for detection and/or diagnosis of SARS-CoV-2 under section 564(b) o f the Act, 21 U.S.C. section 360bbb-3(b)(1), unless the authorization is termina xochitl or revoked sooner. [facility] are certified under the C linical Laboratory Improvement Amendments of 1988 (CLIA), 42 U.S.C. section 263a , to perform high complexity tests.Testing performed by [facility] [id number] [place], [place] [phone] Director: Sandip You M.D.CLIA # [id number] [facility] HospitalUrine human chorionic gonadotropin (hCG) [id number] 14:10:00* Test Item Value Reference Range Interpretation Comments Urine Test (test code = 2106-3) NEGATIVE NEGATIVE [facility]- [facility] ABD PELVIS W/O [id number] 17:59:00 Name: SHAKA MOORE [facility] : 1965 Age/S: 54 / F [address] [facility] Unit #: [id number] Loc: [place] [address] 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 It measures 5 cm in diameter. No evidence of renal or ureteral stones or of obstructive uropathy. (Multiple small pelvic phleboliths). No evidence of appendicitis or other acute bowel abnormalities. There is enlargement of the liver with diffusely decreased parenchymal attenuation but no focal lesions. No biliary dilatation; status post cholecystectomy. Multiple calcified splenic granulomas. Otherwise, spleen, pancreas and adrenal glands are unremarkable. There is a densely calcified 2.3 cm uterine fibroid. No other pelvic mass lesions; no abnormal fluid collections. Scans through the lung bases are clear. IMPRESSION: 1. Solid left renal mass, which is highly suspicious for renal cell carcinoma. 2. No evidence of renal or ureteral stones or of obstructive uropathy. 3. H epatomegaly and diffuse fatty infiltration of the liver. 4. Small, dense ly calcified uterine fibroid. at 1759 Reported and signed by: Rober Viera M.D. CC: Sidney Jarrett NP Technologist:Breana Dunlap RT(R)(CT) CTDI: DLP: Trnscb Date/Time: 11/26/2019 (175) [email or web address] Orig Print D/T: S: 11/26/2019 (769) PAGE 1 Signed Report URINALYSIS [id number] 17:28:00* Test Item Value Reference Range Interpretation Comments UA COLOR (test code = COLU) DARK YELLOW YELLOW A UA APPEARANCE (test code = APPU) SLIGHT CLOUDY CLEAR A UA GLUCOSE DIPSTICK (test code = DGLUU) norm mg/dL NEGATIVE UA BILIRUBIN DIPSTICK (test code = BILU) NEGATIVE mg/dL NEGATIVE UA KETONE DIPSTICK (test code = KETU) 5 (Trace) mg/dL NEGATIVE A UA SPECIFIC GRAVITY (test code = SGU) 1.030 1.001-1.035 UA BLOOD DIPSTICK (test code = KEVIN) 250 (4+) Alex/uL NEGATIVE A UA PH DIPSTICK (test code = TONNY) 5.0 5.0-8.0 UA PROTEIN DIPSTICK (test code = PROU) 30 (1+) mg/dL Neg-15 A UA UROBILINIOGEN DIPSTICK (test code = URO) 1 mg/dL 0.0-0.2 A UA NITRITE DIPSTICK (test code = JAMAICA) NEGATIVE NEGATIVE UA LEUKOCYTE ESTERASE DIPSTICK (test code = LEUU) neg uL NEGA TIVE UA WBC (test code = WBCU) NONE SEEN per HPF 0-5 UA RBC (test code = RBCU) 50-100 per HPF 0-5 A UA EPITHELIAL CELLS (test code = EPIU) Few (2-5/hpf) per HPF Few UA BACTERIA (test code = BACU) MODERATE per HPF NONE A UA MUCUS (test code = MUCU) MODERATE per LPF NONE-FEW A Urine Source? Clean CatchBASIC METABOLIC [id number] 17:28:00* Test Item Value Reference Range Interpretation Comments SODIUM (test code = NA) 145 mmol/L 136-145 N POTASSIUM (test code = K) 4.1 mmol/L 3.5-5.1 N CHLORIDE (test code = CL) 106 mmol/L 101-109 N CARBON DIOXIDE (test code = CO2) 29.4 mmol/L 21-32 N ANION GAP (test code = GAP) 14 mmol/L 10-20 N GLUCOSE (test code = GLU) 107 mg/dL 74-106 H BLOOD UREA NITROGEN (test code = BUN) 16 mg/dL 3-21 N GLOMERULAR FILTRATION RATE (test code = GFR) 49 mL/min >=60 Estimated GFR by using Modified MDRD formula.Chronic kidney disease is defined as either kidney damageor GFR <60 mL/min/1.73 m2 for >3 months. CREATININE (test code = CREAT) 1.15 mg/dL 0.55-1.3 N BUN/CREATININE RATIO (test code = BUN/CREA) 13.9 10-20 N CALCIUM (test code = CA) 8.0 mg/dL 8.4-10.2 L URINALYSIS [id number] 17:21:00* Test Item Value Reference Range Interpretation Comments UA COLOR (test code = COLU) DARK YELLOW YELLOW A UA APPEARANCE (test code = APPU) SLIGHT CLOUDY CLEAR A UA GLUCOSE DIPSTICK (test code = DGLUU) norm mg/dL NEGATIVE UA BILIRUBIN DIPSTICK (test code = BILU) NEGATIVE mg/dL NEGATIVE UA KETONE DIPSTICK (test code = KETU) 5 (Trace) mg/dL NEGATIVE A UA SPECIFIC GRAVITY (test code = SGU) 1.030 1.001-1.035 UA BLOOD DIPSTICK (test code = KEVIN) 250 (4+) Alex/uL NEGATIVE A UA PH DIPSTICK (test code = TONNY) 5.0 5.0-8.0 UA PROTEIN DIPSTICK (test code = PROU) 30 (1+) mg/dL Neg-15 A UA UROBILINIOGEN DIPSTICK (test code = URO) 1 mg/dL 0.0-0.2 A UA NITRITE DIPSTICK (test code = JAMAICA) NEGATIVE NEGATIVE UA LEUKOCYTE ESTERASE DIPSTICK (test code = LEUU) neg uL NEGA TIVE UA WBC (test code = WBCU) per HPF 0-5 UA RBC (test code = RBCU) per HPF 0-5 UA EPITHELIAL CELLS (test code = EPIU) per HPF Few UA BACTERIA (test code = BACU) per HPF NONE Urine Source? Clean CatchCBC W/AUTO [id number] 17:21:00* Test Item Value Reference Range Interpretation Comments WHITE BLOOD CELL (test code = WBC) 6.6 K/mm3 4.5-12.5 N RED BLOOD CELL (test code = RBC) 4.59 mill/mm3 3.7-5.2 N HEMOGLOBIN (test code = HGB) 13.7 gram/dL 11.5-15.5 N HEMATOCRIT (test code = HCT) 41.8 % 36.0-46.0 N MEAN CELL VOLUME (test code = MCV) 91.1 fL 80-98 N MEAN CELL HGB (test code = MCH) 29.8 picogram 27.0-33.0 N MEAN CELL HGB CONCETRATION (test code = MCHC) 32.8 gram/dL 33.0-36. 0 L RED CELL DISTRIBUTION WIDTH (test code = RDW) 12.3 % 11.6-16. 2 N RED CELL DISTRIBUTION WIDTH SD (test code = RDW-SD) 42.1 fL 37 .0-51.0 N PLATELET COUNT (test code = PLT) 231 K/mm3 150-450 N MEAN PLATELET VOLUME (test code = MPV) 10.6 fL 6.7-11.0 N NEUTROPHIL % (test code = NT%) 61.2 % 39.0-69.0 N LYMPHOCYTE % (test code = LY%) 25.6 % 25.0-55.0 N MONOCYTE % (test code = MO%) 8.8 % 0.0-10.0 N EOSINOPHIL % (test code = EO%) 3.6 % 0.0-5.0 N BASOPHIL % (test code = BA%) 0.6 % 0.0-1.0 N NEUTROPHIL # (test code = NT#) 4.03 K/mm3 1.8-7.7 N LYMPHOCYTE # (test code = LY#) 1.69 K/mm3 1.0-5.0 N MONOCYTE # (test code = MO#) 0.58 K/mm3 0-0.8 N EOSINOPHIL # (test code = EO#) 0.24 K/mm3 0.0-0.5 N BASOPHIL # (test code = BA#) 0.04 K/mm3 0.0-0.2 N MANUAL DIFF REQUIRED (test code = MDIFF) NO thyroid stimulating hormone, [id number] 15:16:00* Test Item Value Reference Range Interpretation Comments thyroid stimulating hormone, serum (test code = 29) 2.600 u[iU]/ mL 0.450-4.500 [facility]- XR CHEST 2 [id number] 15:53:00 Name: SHAKA MOORE [facility] : 1965 Age/S:53 /F [address] [facility] Unit#:[id number] Loc: [place] [address] Phys: Shree Mar 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 The remainder of the lungs is clear; No effusions; no pneumothorax; Unremarkable cardiac mediastinal silhouette. IMPRESSION: Patchy nodular densities in the lower portion of the right lung. These are probably in flammatory changes. However, in view of some nodular components with rec ommend an additional CT scan of the chest to rule out neoplastic changes . at 1553 Repor xochitl and signed by: Rober Viera M.D. CC: Christine Leslie MD; Shree Mar Technologist: Mai Horton Trnscrpt Data: 09/18/2018 (1010) SorayaGRW Orig Print D/T: S: 09/18/2018 (2108) PAGE 1 Signed Report thyroid stimulating hormone, [id number] 15:46:00* Test Item Value Reference Range Interpretation Comments thyroid stimulating hormone, serum (test code = 29) 8.460 u[iU]/ mL 0.450-4.500 H [facility] [id number] 11:57:00* Test Item Value Reference Range Interpretation Comments UA COLOR (test code = COLU) YELLOW YELLOW UA APPEARANCE (test code = APPU) CLEAR CLEAR UA GLUCOSE DIPSTICK (test code = DGLUU) NORMAL mg/dL NEGATIVE UA BILIRUBIN DIPSTICK (test code = BILU) NEGATIVE mg/dL NEGATIVE UA KETONE DIPSTICK (test code = KETU) neg mg/dL NEGATIVE UA SPECIFIC GRAVITY (test code = SGU) 1.010 1.001-1.035 UA BLOOD DIPSTICK (test code = KEVIN) 10 (Trace) Alex/uL NEGATIVE A UA PH DIPSTICK (test code = TONNY) 8.0 5.0-8.0 UA PROTEIN DIPSTICK (test code = PROU) neg mg/dL Neg-15 UA UROBILINIOGEN DIPSTICK (test code = URO) norm mg/dL 0.0-0.2 UA NITRITE DIPSTICK (test code = JAMAICA) NEGATIVE NEGATIVE UA LEUKOCYTE ESTERASE DIPSTICK (test code = LEUU) NEGATIVE uL NEGA TIVE UA WBC (test code = WBCU) 0-5 per HPF 0-5 IN SOME URINARY TRACT INFECTIONS THERE MAY NOT BE ENOUGHWBCs IN THE URINE TO TRIGGER AN AUTOMATIC (REFLEX) URINECULTURE. A SEPERATE ORDER FOR URINE CULTURE IS RECOMMENDEDIF THERE IS STRONG SUPPORT FOR A URINARY TRACT INFECTIONCLINICALLY. UA RBC (test code = RBCU) 0-3 per HPF 0-5 UA EPITHELIAL CELLS (test code = EPIU) Few (2-5/hpf) per HPF Few UA BACTERIA (test code = BACU) FEW per HPF NONE Urine Source? Clean CatchUR HCG [id number] 11:57:00* Test Item Value Reference Range Interpretation Comments UR HCG QUAL (test code = HCGQLU) NEGATIVE This HCGQL test is NOT applicable for MALE patients.Check with nurse about probable order error.If Tumor Marker Test needed, nurse should order test "HCGTU"(Test #[id number]) Urine Source? Clean CatchURINALYSIS [id number] 11:56:00* Test Item Value Reference Range Interpretation Comments UA COLOR (test code = COLU) YELLOW YELLOW UA APPEARANCE (test code = APPU) CLEAR CLEAR UA GLUCOSE DIPSTICK (test code = DGLUU) NORMAL mg/dL NEGATIVE UA BILIRUBIN DIPSTICK (test code = BILU) NEGATIVE mg/dL NEGATIVE UA KETONE DIPSTICK (test code = KETU) neg mg/dL NEGATIVE UA SPECIFIC GRAVITY (test code = SGU) 1.010 1.001-1.035 UA BLOOD DIPSTICK (test code = KEVIN) 10 (Trace) Alex/uL NEGATIVE A UA PH DIPSTICK (test code = TONNY) 8.0 5.0-8.0 UA PROTEIN DIPSTICK (test code = PROU) neg mg/dL Neg-15 UA UROBILINIOGEN DIPSTICK (test code = URO) norm mg/dL 0.0-0.2 UA NITRITE DIPSTICK (test code = JAMAICA) NEGATIVE NEGATIVE UA LEUKOCYTE ESTERASE DIPSTICK (test code = LEUU) NEGATIVE uL NEGA TIVE UA WBC (test code = WBCU) per HPF 0-5 Urine Source? Clean CatchUR HCG [id number] 11:56:00* Test Item Value Reference Range Interpretation Comments UR HCG QUAL (test code = HCGQLU) Urine Source? Clean Catch
--- OUTSIDE RECORDS SUMMARY | 2020-02-07 13:18 | XMS REPORT | Clinical Summary ---
Author Author [facility] Address Unknown Phone Unavailable Care Team Providers Care Physical Chemist Name Role Phone Pedro Trejo MD PCP [...] culture Escherichia coli BOLA isolate 10-5 cfu/ml QUAKER [facility] HOSPITAL characteristics of this assay on this isolate were validated by the Microbiology Laboratory at [facility]. This source has not been approved by the U.S. Food and Drug Administration. The results are not intended to be used as the sole means for clinical diagnosis or patient management. The Microbiology Laboratory is authorized under the clinical Laboratory Improvement Amendments of 1988 (CLIA-88) to perform high complexity testing. This isolate is a construction producer of ESBL (extended spectrum beta lactamase). This [...] mm: Susceptible Escherichia coli Performing Organization Address City/[facility] Ph one Number [facility] DEPARTMENT OF [address] [place] [address] PATHOLOGY AND GENOMIC MEDICINE [address] * Urinalysis screen and microscopy, with reflex to culture (01/03/2020 4:50 PM CDT) Specimen site Clean catch [facility] Color, UA Yellow [facility] Appearance, UA Cloudy [facility] Specific 1.020 1.001 - 1.035 [facility] gravity, [facility] pH, UA 6.0 5.0 - 8.5 [facility] Protein, UA 2+ (A) Negative [facility] Glucose, UA Negative Negative [facility] Ketones, UA Negative Negative [facility] Bilirubin, UA Negative Negative [facility] Blood, UA Moderate (A) Negative [facility] Nitrite, UA Positive (A) Negative [facility] Urobilinogen, <2.0 <2.0 [facility] Leukocyte Large (A) Negative [facility] Epithelial >20 /HPF [facility] cells, [facility] WBC, UA >180 (H) 0 - 4 /HPF [facility] RBC, UA 53 (H) 0 - 5 /HPF [facility] Bacteria, UA Moderate (A) None seen [facility] Yeast, UA None seen [facility] Yeast with None seen [facility] Specimen Urine Performing Organization Address City/[facility] Ph one Number [facility] DEPARTMENT OF [address] [place] [address] PATHOLOGY AND GENOMIC MEDICINE [address] * Estimated GFR (01/03/2020 4:50 PM CDT) [facility] Estimated GFR 45 (A) mL/min/1.73 m2 [facility] Comment: [facility] Interpretation G1 >=90 Normal or high G2 [...] published in 2014. Specimen Performing Organization Address City/[facility] Ph one Number [facility] DEPARTMENT OF [address] [place] [address] PATHOLOGY AND [facility] MEDICINE [address] * Partial thromboplastin time, activated (01/03/2020 4:50 PM CDT) [facility] PTT 28.4 23.0 - 36.0 sec [facility] Comment: QUAKER PTT therapeutic range for HOSPITAL unfractionated heparin is 61.0-112.0 seconds which corresponds to Anti-Xa 0.3-0.7 U/ml. Specimen Blood Performing Organization Address [facility] Ph one Number [facility] [place] [address] PATHOLOGY AND [facility] MEDICINE [address] * Prothrombin time with INR (01/03/2020 4:50 PM CDT) [facility] Prothrombin 14.0 11.5 - 14.5 sec [facility] INR 1.1 [facility] Comment: QUAKER [facility] International Normalized HOSPITAL Ratio (INR) is a therapeutic monitoring tool for patients who are stable on oral anticoagulant therapy. An INR of 2.0-3.0 is suggested for deep vein thrombosis/pulmonary embolism. Specimen Blood Performing Organization Address [facility] Ph one Number [facility] DEPARTMENT OF [address] [place] [address] PATHOLOGY AND [facility] MEDICINE [address] * CBC with platelet and differential (01/03/2020 4:50 PM CDT) [facility] WBC 10.59 4.50 - 11.00 k/uL [facility] RBC 4.21 4.20 - 5.50 m/uL [facility] HGB 11.7 (L) 12.0 - 16.0 g/dL [facility] HCT 39.8 37.0 - 47.0 % [facility] MCV 94.5 82.0 - 100.0 fL [facility] MCH 27.8 27.0 - 34.0 pg [facility] MCHC 29.4 (L) 31.0 - 37.0 g/dL [facility] RDW - SD 46.4 37.0 - 55.0 fL [facility] MPV 11.3 8.8 - 13.2 fL [facility] Platelet count 421 (H) 150 - 400 k/uL [facility] Nucleated RBC 0.00 /100 WBC [facility] Neutrophils 67.1 39.0 - 69.0 % [facility] Lymphocytes 15.2 (L) 25.0 - 45.0 % [facility] Monocytes 11.2 (H) 0.0 - 10.0 % [facility] Eosinophils 5.3 (H) 0.0 - 5.0 % [facility] Basophils 0.8 0.0 - 1.0 % [facility] Immature 0.4Comment: "Immature 0.0 - 1.0 % [facility] granulocytes granulocytes" (promyelocytes, METHOD IST myelocytes, metamyelocytes) [facility] Specimen Blood Performing Organization Address City/State[facility] Ph one Number [facility] DEPARTMENT OF [address] [place] [address] PATHOLOGY AND GENOMIC MEDICINE [address] * Comprehensive metabolic panel (01/03/2020 4:50 PM CDT) Sodium 142 135 - 148 mEq/L [facility] Potassium 4.2 3.5 - 5.0 mEq/L [facility] Chloride 103 98 - 112 mEq/L [facility] CO2 24 24 - 31 mEq/L [facility] Anion gap 15@ANIO 7 - 15 mEq/L [facility] BUN 18 6 - 20 mg/dL [facility] Creatinine 1.35 (H) 0.50 - 0.90 mg/dL [facility] Glucose 111 (H) 65 - 99 mg/dL [facility] Calcium 9.6 8.3 - 10.2 mg/dL [facility] Protein 7.5 6.3 - 8.3 g/dL [facility] Comment: [facility] [place] 4.6-7.0 g/dL 1 week 4.4-7.6 g/dL 7 months-1year 5.1-7.3 g/dL 1-2 years 5.6-7.5 g/dL >3 years 6.0-8.0 g/dL 18-150 6.3-8.3 g/dL Albumin 3.4 (L) 3.5 - 5.0 g/dL [facility] A/G ratio 0.8 0.7 - 3.8 [facility] Alkaline 99 35 - 104 U/L [facility] phosphatase [facility] AST 21 10 - 35 U/L [facility] ALT 15 5 - 50 U/L [facility] Total bilirubin <0.2 0.0 - 1.2 mg/dL [facility] Specimen Blood Performing Organization Address City/[facility] Ph one Number [facility] DEPARTMENT OF [address] [place] [address] PATHOLOGY AND GENOMIC MEDICINE [address] * POC urinalysis dipstick (01/03/2020 3:06 [...] This exam was not acquired at a [facility] facility an d has not been [facility] interpreted by a [facility] Provider. The exam was imported into our imaging system. Performing Organization Address City/[facility]/Zipcode Ph one Number [facility] [address] [place] [address] after 01/24/2019 Insurance Type Payer Benefit Subscriber ID Effective Phone Address Plan / Dates Group PPO [employer]IE KO PPO xxxxxxxxxx 2019- OPEN Present CHOICE Advance Directives For more information, please contact: [phone] Patient Associate Professor Of [employer] Explanation Type Date Recorded Advance Directives, 08/12/2016 11:21 AM Living Will and Medical Power of Charge Account Identification Clerk Advance Directives, 08/17/2016 1:16 PM Living Will and Medical Power of Charge Account Identification Clerk
--- OUTSIDE RECORDS SUMMARY | 2020-02-07 13:18 | XMS REPORT | Continuity of Care Document ---
Author Author [facility] t Organization [facility] Address [facility] [place] [address] Phone Unavailable Care Team Providers Care Director Of Counterintelligence Name Role Phone MD RAHUL NOLAN PCP SYSTEM, NOT IN PROVIDER Attphys Unavailable Rashmi ALTAMIRANO, [facility] Attphys Stacia GEORGE Attphys Unavailable Daina NOLAN [...] Maysselyn Attphys Unavailable Alexander, Deborath Attphys Unavailable LopesLorena brizuela Attphys Unavailable Yulia Nolan Attphys Unavailable , MARY Attphys Unavailable Stacia GEORGE Admphys Unavailable DAY, MARY Admphys Unavailable Celeste Jain Unavailable Joy Nolan Unavailable Payers Payer Name Policy Type Policy Number Effective Date Expiration Date Ruben gould AETNAAETNA PPO OPEN [id number] xxxxxxxxxx 2019 00:00:00 Shahzad Fitch [facility] [id number] 2019 00:00:00 [facility] Cdc Review [id number] [facility] [id number] 2019 00:00:00 [id number] CI [id number] 2018 00:00:00 2019 00:00 :00 [facility] [id number] CI [id number] 2017 00:00:00 2018 00:00 :00 [facility] Problems Condition Name Condition Details Condition Category Status Onset Date Resolution Date Last Treatment Date Treating Clinician Comments Source Sinusitis - acute Condition Active 2019-04-03 00:00:00 2019-04-03 13:56:40 Celeste Jain [facility] Hypothyroidism Condition Active 2018-08-14 00:00:00 201 03-18-18 15:15:03 Humphrey Nolan [facility] Hypertension Condition Active 2018-08-14 00:00:00 03-27 15:15:03 Humphrey Nolan [facility] Muscle spasm Problem Active [facility] Inflammation of sacroiliac joint Problem Active [facility] Mass of ureter Problem Active [facility] Hematuria Problem Active [facility] Malignant neoplasm of urinary bladder Problem Active [facility] Occlusion of right ureter Problem Active [facility] Solitary right kidney Problem Active [facility] Renal insufficiency Problem Active [facility] History of Past Illness Condition Name Condition Details Condition Category Status Onset Date Resolution Date Last Treatment Date Treating Clinician Comments Source Acute bronchitis Condition Inactive 2018-09-26 00:00:00 201 03-18-18 00:00:00 2019-04-01 13:46:46 Celeste Jain [facility] Allergies, Adverse Reactions, Alerts Allergy Name Allergy Type Status Severity Reaction(s) Onset Date Inacti ve Date Treating Clinician Comments Source Morphine Allergy to substance Active NAUSEA 2020-01-25 00:00:00 [facility] Ceftriaxone Allergy to substance Active SWELLING, WELTS 2020-01 00:00:00 [facility] No Known Allergies DA Active U 2019-12-22 00:00:00 [facility] No Known Allergies DA Active U 2018-09-18 00:00:00 [facility] No Known Allergies DA Active U 2014-05-27 00:00:00 [facility] Social History Social Habit Start Date Stop Date Quantity Comments Source Sex Assigned At Jose Roberto Burgos [facility] time of call 2019-04-03 16:43:17 2019-04-03 16:43:17 04/03/2019 4:43 PM [facility] is there any chance that you could be ? 2019-04-03 1 3:40:50 2019-04-03 13:40:50 No [facility] passive cigarette smoke exposure 2019-04-03 13:40:50 2019-04-03 13:40 :50 No [facility] social history reviewed E&M 2019-04-03 13:40:50 2019-04-03 13:40 :50 reviewed today [facility] sexual orientation 2019-04-03 13:40:50 2019-04-03 13:40:50 Heterosexu al [facility] drug use, illicit 2018-09-26 14:44:34 2018-09-26 14:44:34 Never [facility] alcohol use 2018-09-26 14:44:34 2018-09-26 14:44:34 Never [facility] patient considered to be homeless 2018-08-14 14:52:57 2018-08-14 14:5 2:57 No [facility] Smoking Status Start Date Stop Date Source [facility] smoked tobacco [facility]finding[facility] Ordered Medication Name Filled Medication Name Start Date Stop Da te Current Medication? Ordering Clinician Indication Dosage Frequency Signature (SIG) Comments Components Source nitrofurantoin, macrocrystal-monohydrate, (Macrobid) 100 MG capsule 2020-01-20 00:00:00 2020-01-27 23:59:00 No 100mg Q.5D Take 1 capsule (100 mg total) by mouth 2 (two) times a day for 7 days. Javi pena [facility] (AMOXICILLIN-POT CLAVULANATE) 500-125 MG TABS 20 28-03-25 00:00:00 2019-04-13 00:00:00 No Celeste Cristobal 1{Tablet} 2xD one tablet twice daily for 10 days [facility] AUGMENTIN (AMOXICILLIN-POT CLAVULANATE) 500-125 MG TABS 2019-04-03 00:00:00 2019-04-13 00:00:00 No 1{Tablet} 2xD one tablet twice d aily for 10 days [facility] (ATENOLOL) 50 MG TABS 2018-08-14 00:00:00 Yes Kodi a Cristobal 1{Tablet} 1xD 1 by mouth every day [facility] (AMLODIPINE BESYLATE) 5 MG TABS 2018-08-14 00:00:00 Yes Celeste Cristobal 1{Tablet} 1xD 1 tab by mouth daily [facility] TIROSINT (LEVOTHYROXINE SODIUM) 150 MCG CAPS 2018-08-14 00 :00:00 Yes Celeste Cristobal 1{Capsule} 1xD take one cap By Mouth Every Day [facility] Atenolol Atenolol Yes [address] [facility] Cephalexin Monohydrate (Keflex) 500 Mg CAPSULE Cephale santiago Monohydrate (Keflex) 500 Mg CAPSULE Yes 500 Twice A Day [facility] Cholecalciferol (Vitamin D3) (Vitamin D) 5,000 Unit TA BLET Cholecalciferol (Vitamin D3) (Vitamin D) 5,000 Unit TABLET Yes 1 Daily [facility] Levothyroxine Sodium (Tirosint) 150 Mcg CAPSULE Levoth yroxine Sodium (Tirosint) 150 Mcg CAPSULE Yes 150 Daily [facility] Pantoprazole Sodium (Protonix) 20 Mg TABLET. Pantopr azole Sodium (Protonix) 20 Mg TABLET. Yes 40 Daily [facility] Tramadol Hcl (Ultram) 50 Mg TABLET Tramadol Hcl (Ultram) 50 Mg TABLET Yes 50 Every 6 Hours as needed for Pain [facility] Sulfamethoxazole/Trimethoprim (Bactrim Ds Tablet) 1 Ea ch TABLET Sulfamethoxazole/Trimethoprim (Bactrim Ds Tablet) 1 Each TABLET 2020-01-25 00:00:00 No 1 Twice A Day [facility] Relafen Relafen 2020-01-24 00:00:00 No 500 Twice A D ay [facility] Atenolol Atenolol 2016-10-09 00:00:00 No 25 Twice A Day [facility] Levothyroxine Sodium (Tirosint) 125 Mcg CAPSULE Levoth yroxine Sodium (Tirosint) 125 Mcg CAPSULE 2016-10-09 00:00:00 No 125 Daily [facility] Vital Signs Vital Name Observation Time Observation Value Comments Source Body Temperature 2020-02-06 16:07:00 98.6 [degF] [facility] BMI (Body Mass Index) 2020-02-05 00:32:00 55.1 kg/m2 [facility] Weight 2020-01-31 00:26:00 321 [lb_av] [facility] Body Temperature 2019-12-06 11:23:00 98.5 [degF] [facility] Weight 2019-11-29 17:32:00 276 [lb_av] [facility] BMI (Body Mass Index) 2019-11-29 17:32:00 47.4 kg/m2 [facility] Procedures Procedure Date / Time Performed Performing Clinician [facility] e X-ray of chest, two views 2020-01-26 00:00:00 [facility] CT of abdomen and pelvis without contrast 2020-01-25 00:00:00 [facility] URINE CULTURE 2020-01-03 18:28:00 Satkunasivam, Cleve Pike [facility] URINALYSIS SCREEN AND MICROSCOPY, WITH REFLEX TO CULTURE 202 16:50:00 Cleve Caraballo PARTIAL THROMBOPLASTIN TIME (PTT) 2020-01-03 16:50:00 Cleve Padilla am PROTHROMBIN TIME WITH INR 2020-01-03 16:50:00 Cleve Caraballo HC COMPLETE BLD COUNT W/AUTO DIFF 2020-01-03 16:50:00 Cleve Padilla am COMPREHENSIVE METABOLIC PANEL 2020-01-03 16:50:00 Cleve Caraballo ESTIMATED GFR 2020-01-03 16:50:00 Cleve Caraballo [facility] POC URINALYSIS DIPSTICK 2020-01-03 15:06:[address] ABD/PELVIC EXTERNAL STUDY 2019-12-23 00:24:[address] ABD/PELVIC EXTERNAL STUDY 2019-11-26 17:19:00 Daina Caraballo Plan of Care Planned Activity Planned Date Details Comments Source Future Scheduled Test 2020-02-08 00:00:00 INFLUENZA VACCINE [code = INFLUENZA VACCINE] [facility] Future Scheduled Test 2016 00:00:00 BREAST CANCER SCRE ENING [code = BREAST CANCER SCREENING] [facility] Future Scheduled Test 2016 00:00:00 COLONOSCOPY SCREEN ING [code = COLONOSCOPY SCREENING] [facility] Future Scheduled Test 2016 00:00:00 SHINGLES VACCINES (#1) [code = SHINGLES VACCINES (#1)] [facility] Future Scheduled Test 1987 00:00:00 Screening for jennifer gnant neoplasm of cervix (procedure) [code = 566928966] Shahzad Sams Instructions Anemia [facility] Instructions Hypertension [facility] Instructions Post Operative Pain [facility] Encounters Start Date/Time End Date/Time Encounter Type Admission Type [facility] Care Department Encounter ID Source 2020-01-01 10:59:08 Outpatient SYSTEM, PROVIDER ROSALINDA TELLEZ [id number] MD Alvarado 2020-01-25 20:37:00 2020-02-06 17:05:00 Discharged Inpatient 1 [facility] [id number] [facility] 2020-02-06 00:00:00 2020-02-06 00:00:00 Outpatient CLEVE CARABALLO [facility] [id number] [facility] 2020-02-06 00:00:00 2020-02-06 00:00:00 Outpatient CLEVE CARABALLO [facility] [id number] [facility] 2020-02-06 00:00:00 2020-02-06 00:00:00 Outpatient CLEVE CARABALLO [facility] [id number] [facility] 2020-01-23 00:00:00 2020-01-23 00:00:00 Outpatient DAVI PAYTON MDA [facility] [id number] [facility] 2020-01-22 00:00:00 2020-01-22 00:00:00 Outpatient DAVI PAYTON MDA MDA [id number] [facility] 2020-01-21 00:00:00 2020-01-21 00:00:00 Outpatient DAIJA MYLES MDA MDA [id number] [facility] 2020-01-21 00:00:00 2020-01-21 00:00:00 Outpatient EL MDA MDA [id number] [facility] 2020-01-19 00:00:00 2020-01-19 00:00:00 Outpatient EL MDA MDA [id number] [facility] 2020-01-03 00:00:00 2020-01-03 00:00:00 Outpatient SATCLEVE GUTIÉRREZ [facility] [id number] [facility] 2020-01-03 00:00:00 2020-01-03 00:00:00 Outpatient SATCLEVE GUTIÉRREZ [facility] [id number] [facility] 2019-11-29 14:37:00 2019-12-06 14:40:00 Discharged Inpatient 1 GEORGE [facility] [id number] [facility] 2019-04-03 00:00:00 2019-04-03 00:00:00 Office Visit Mickie Malloy Brenda Jabeen, Sameera Torres, Paulina [facility] Encounter/[id number] [facility] 2019-04-03 00:00:00 2019-04-03 00:00:00 Office Visit Maryann Swanson, Katt Solorzano [facility] Encounter/[id number] [facility] 2019-04-03 00:00:00 2019-04-03 00:00:00 Office Visit Celeste Jain [facility] Encounter/[id number] [facility] 2019-04-03 00:00:00 2019-04-03 00:00:00 Office Visit Celeste Coello Mike [facility] Encounter/[id number] [facility] 2019-03-27 00:00:00 2019-03-27 00:00:00 Office Visit Celeste Jain [facility] Encounter/[id number] [facility] 2019-03-27 00:00:00 2019-03-27 00:00:00 Office Visit Celeste Coello Dulce Vasquez, Adriana [facility] Encounter/[id number] [facility] 2019-03-08 00:00:00 2019-03-08 00:00:00 Office Visit Maryann Swanson Sameera Garcia, Gordon D Timonieri, Carla Vasquez, Adriana Cepeda, Hassel Madrid, Katherine Huezo, Yoselyn A [facility] Encount er/[id number] [facility] 2018-10-04 00:00:00 2018-10-04 00:00:00 Office Visit Anne Marie Dutton [facility] Encounter/[id number] [facility] 2018-10-03 00:00:00 2018-10-03 00:00:00 Office Visit Maryann Swanson [facility] Encounter/[id number] [facility] 2018-09-28 00:00:00 2018-09-28 00:00:00 [facility]/[id number] [facility] 2018-09-26 00:00:00 2018-09-26 00:00:00 Office Visit Humphrey Oleary Deborath [facility] Encounter/[id number] [facility] 2018-09-26 00:00:00 2018-09-26 00:00:00 [facility] En[facility]/[id number] [facility] 2018-09-26 00:00:00 2018-09-26 00:00:00 Office Visit Humphrey Oleary Iris [facility] Encounter/[id number] [facility] 2018-09-05 00:00:00 2018-09-05 00:00:00 [facility]/[id number] [facility] 2018-08-22 00:00:00 2018-08-22 00:00:00 [facility]/[id number] [facility] 2018-08-21 00:00:00 2018-08-21 00:00:00 [facility]/[id number] [facility] 2018-08-14 00:00:00 2018-08-14 00:00:00 Office Visit Humphrey Oleary Deborath [facility] Encounter/[id number] [facility] 2018-08-14 00:00:00 2018-08-14 00:00:00 [facility]/[id number] [facility] 2018-08-14 00:00:00 2018-08-14 00:00:00 Office Visit Humphrey Oleary Deborath [facility] Encounter/[id number] [facility] 2018-01-24 00:00:00 2018-01-24 00:00:00 Office Visit Humphrey Nolan [facility] Encounter/[id number] [facility] 2016-08-16 00:00:00 2016-08-16 00:00:00 Outpatient DAY, [facility] [id number] [facility] Results Test Description Test Time Test Comments Results Result Comments Source CT Abd/Pelvic External Study 2020-02-06 13:03:22 This exam was not acquired at a [facility] facility and has not been interpreted by a [facility] Provider. The exam was imported into our imaging system. [facility] Blood leukocytes automated count (number/volume) 2020-02-06 09:00:00 Test Item White Blood Count (test code = 6690-2) 9.67 4.8-10.8 [facility] erythrocytes automated count (number/volume)2020-02-06 09:00:00* Test Item Value Reference Range Interpretation Comments Red Blood Count (test code = 789-8) 2.73 3.6-5.1 [facility] (moles/volume)2020-02-06 09:00:00* Test Item Value Reference Range Interpretation Comments Hemoglobin (test code = 59387-6) 7.4 12.0-16.0 [facility] hematocrit (volume fraction)2020-02-06 09:00:00* Test Item Value Reference Range Interpretation Comments Hematocrit (test code = 4544-3) 25.2 34.2-44.1 [facility]wood[facility] erythrocyte mean corpuscular [id number] 09:00:00* Test Item Value Reference Range Interpretation Comments Mean Corpuscular Volume (test code = 787-2) 92.3 81-99 [facility]wood[facility] eryth[facility] mean corpuscular hemoglobin (mass per erythrocyte)2020-02-06 09:00:00* Test Item Value Reference Range Interpretation Comments Mean Corpuscular Hemoglobin (test code = 785-6) 27.1 28-32 [facility] erythrocyte mean corpuscular hemoglobin concentration measurement (mass/volume)2020-02-06 09:00:00* Test Item Value Reference Range Interpretation Comments Mean Corpuscular Hemoglobin Concent (test code = 786-4) 29.4 31-35 [facility]wood[facility]DW XurGs-Ppc3697-88-30 09:00:00* Test Item Value Reference Range Interpretation Comments Red Cell Distribution Width (test code = 50974-8) 13.9 11.7 -14.4 [facility] platelet count (count/volume)2020-02-06 09:00:00* Test Item Value Reference Range Interpretation Comments Platelet Count (test code = 777-3) 427 140-360 [facility]wood[facility] blood segmented neutrophil count as percentage of total srtwjkptxd5208-77-60 09:00:00* Test Item Value Reference Range Interpretation Comments Neutrophils (%) (Auto) (test code = 01598-4) 62.7 38.7-80.0 [facility] lymphocyte count as percentage ot total kwhxgvocup3079-60-85 09:00:00* Test Item Value Reference Range Interpretation Comments Lymphocytes (%) (Auto) (test code = 736-9) 18.4 18.0-39.1 [facility] monocyte count as percentage of total yuggelcopz0274-46-01 09:00:00* Test Item Value Reference Range Interpretation Comments Monocytes (%) (Auto) (test code = 5905-5) 9.1 4.4-11.3 [facility] eosinophil count as percentage of total nsncpcdwcd8756-89-86 09:00:00* Test Item Value Reference Range Interpretation Comments Eosinophils (%) (Auto) (test code = 713-8) 8.3 0.0-6.0 [facility] blood basophil count as percentage of total giivlxhrph5967-25-68 09:00:00* Test Item Value Reference Range Interpretation Comments Basophils (%) (Auto) (test code = 706-2) 0.3 0.0-1.0 [facility]woodFluoroscopic procedure less than one hour [id number] 09:00:00* Test Item Value Reference Range Interpretation Comments IM GRANULOCYTES % (test code = IM GRANULOCYTES %) 1.2 0.0- 1.0 [facility] neutrophil count 2020-02-06 09:00:00* Test Item Value Reference Range Interpretation Comments Neutrophils # (Auto) (test code = 751-8) 6.1 2.1-6.9 [facility] lymphocytes count (number/volume) 2020-02-06 09:00:00* Test Item Value Reference Range Interpretation Comments Lymphocytes # (Auto) (test code = 65448-4) 1.8 1.0-3.2 [facility]wood[facility] monocytes automated count (number/volume)2020-02-06 09:00:00* Test Item Value Reference Range Interpretation Comments Monocytes # (Auto) (test code = 742-7) 0.9 0.2-0.8 [facility] blood eosinophil count 2020-02-06 09:00:00* Test Item Value Reference Range Interpretation Comments Eosinophils # (Auto) (test code = 711-2) 0.8 0.0-0.4 [facility]wood[facility] blood basophil count (count/volume)2020-02-06 09:00:00* Test Item Value Reference Range Interpretation Comments Basophils # (Auto) (test code = 704-7) 0.0 0.0-0.1 [facility]woodFluoroscopic procedure less than one hour ccqrhzhe3695-44-95 09:00:00* Test Item Value Reference Range Interpretation Comments Absolute Immature Granulocyte (auto (arminda t code = Absolute Immature Granulocyte (auto) 0.12 0-0.1 [facility] sodium [facility] (moles/volume)2020-02-06 09:00:00* Test Item Value Reference Range Interpretation Comments Sodium Level (test code = 2951-2) 139 136-145 [facility] plasma potassium measurement (moles/volume)2020-02-06 09:00:00* Test Item Value Reference Range Interpretation Comments Potassium Level (test code = 2823-3) 3.7 3.5-5.1 [facility] plasma chloride measurement (moles/volume)2020-02-06 09:00:00* Test Item Value Reference Range Interpretation Comments Chloride Level (test code = 2075-0) 105 98-107 [facility] plasma carbon dioxide, total measurement (moles/volume)2020-02-06 09:00:00* Test Item Value Reference Range Interpretation Comments Carbon Dioxide Level (test code = 2028-9) 25 22-29 [facility] plasma anion [id number] 09:00:00* Test Item Value Reference Range Interpretation Comments Anion Gap (test code = 45992-9) 12.7 8-16 [facility] plasma urea nitrogen measurement (mass/volume)2020-02-06 09:00:00* Test Item Value Reference Range Interpretation Comments Blood Urea Nitrogen (test code = 3094-0) 5 7-26 [facility] plasma creatinine measurement (mass/volume)2020-02-06 09:00:00* Test Item Value Reference Range Interpretation Comments Creatinine (test code = 2160-0) 1.14 0.57-1.11 [facility] or plasma urea nitrogen/creatinine mass [id number] 09:00:00* Test Item Value Reference Range Interpretation Comments BUN/Creatinine Ratio (test code = 3097-3) 4 6-25 [facility]woodEstimated glomerular filtration rate (GFR) cwouqsiwnjqeb6029-19-65 09:00:00* Test Item Value Reference Range Interpretation Comments Estimat Glomerular Filtration Rate (test code = 279556598) 50 >60 Ranges were taken from the National Kidney Disease Education Program and the [employer] literature.Reference ranges:60 or greater: Mzxqjq18-13 ( for 3 consecutive months): Chronic kidney disease 15 or less: Kidney failureH[facility] BrownwoodGlucose hosobzardll8963-18-58 09:00:00* Test Item Value Reference Range Interpretation Comments Glucose Level (test code = EJB4207) 106 74-118 [facility] or plasma calcium measurement (mass/volume)2020-02-06 09:00:00* Test Item Value Reference Range Interpretation Comments Calcium Level (test code = 88217-4) 7.7 8.4-10.2 [facility]wood[facility] hypochromia detection by light ebflkqylmf3414-29-87 04:40:00* Test Item Value Reference Range Interpretation Comments Hypochromasia (test code = 728-6) SLIGHT [facility] plasma magnesium measurement (mass/volume)2020-02-05 04:40:00* Test Item Value Reference Range Interpretation Comments Magnesium Level (test code = 55047-2) 1.4 1.3-2.1 [facility] or plasma iron measurement (mass/volume)2020-02-05 04:40:00* Test Item Value Reference Range Interpretation Comments Iron Level (test code = 2498-4) 20 50-170 [facility] plasma iron binding capacity measurement (mass/volume)2020-02-05 04:40:00* Test Item Value Reference Range Interpretation Comments Total Iron Binding Capacity (test code = 2500-7) 239 261-4 78 [facility] Paso[facility] or plasma iron saturation measurement (mass fraction)2020-02-05 04:40:00* Test Item Value Reference Range Interpretation Comments Percent Iron Saturation (test code = 2502-3) 8 15-50 [facility] or plasma transferrin measurement (mass/volume)2020-02-05 04:40:00* Test Item Value Reference Range Interpretation Comments Transferrin (test code = 3034-6) 171 180-382 [facility] or plasma total bilirubin measurement (mass/volume)2020-02-03 20:46:00* Test Item Value Reference Range Interpretation Comments Total Bilirubin (test code = 1975-2) 0.3 0.2-1.2 [facility]woodFluoroscopic procedure less than one hour gagsssyu8996-85-65 20:46:00* Test Item Value Reference Range Interpretation Comments Aspartate Amino Transf (AST/SGOT) (test code = Aspartate Amino Transf (AST/SGOT)) 30 5-34 [facility] alanine aminotransferase measurement (enzymatic activity/volume)2020-02-03 20:46:00* Test Item Value Reference Range Interpretation Comments Alanine Aminotransferase (ALT/SGPT) (test code = 1742-6) 15 0-55 [facility] protein measurement (mass/volume)2020-02-03 20:46:00* Test Item Value Reference Range Interpretation Comments Total Protein (test code = 2885-2) 5.1 6.5-8.1 [facility] albumin measurement (mass/volume)2020-02-03 20:46:00* Test Item Value Reference Range Interpretation Comments Albumin (test code = 1751-7) 1.9 3.5-5.0 [facility] globulin measurement (mass/volume) 2020-02-03 20:46:00* Test Item Value Reference Range Interpretation Comments Globulin (test code = 25425-4) 3.2 2.3-3.5 [facility] albumin/globulin mass nxqkz5017-65-49 20:46:00* Test Item Value Reference Range Interpretation Comments Albumin/Globulin Ratio (test code = 1759-0) 0.6 0.8-2.0 [facility] alkaline phosphatase measurement (enzymatic activity/volume)2020-02-03 20:46:00* Test Item Value Reference Range Interpretation Comments Alkaline Phosphatase (test code = 6768-6) 60 40-150 [facility]wood[facility] (KUB)2020-02-03 20:00:00 [facility] [address] [place] [address] Patient Name: SHAKA MOORE MR #: [id number] : 1965 Age/Sex: 54/F Req #: [id number] Adm Physician: REI GEORGE MD Ordered by: RAHUL NOLAN MD Report #: [id number] Location: MED/SURG Room/Bed: [facility] Procedure: [id number] DX/ABDOMEN-1V IEW (KUB) Exam Date: 02/03/20 Exam [...] MD Fluoroscopic procedure less than one hour vtwilwzl0352-27-28 09:05:00* Test Item Value Reference Range Interpretation Comments Differential Total Cells Counted (test code = Differen tial Total Cells Counted) 100 [facility]100 leukocytes 2020-02-02 09:05:00* Test Item Value Reference Range Interpretation Comments Neutrophils % (Manual) (test code = 02994-3) 75 40-74 [facility] blood lymphocytes/100 leukocytes 2020-02-02 09:05:00* Test Item Value Reference Range Interpretation Comments Lymphocytes % (Manual) (test code = 737-7) 13 19-48 [facility] blood monocytes/100 leukocytes 2020-02-02 09:05:00* Test Item Value Reference Range Interpretation Comments Monocytes % (Manual) (test code = 744-3) 7 3.4-9.0 [facility] blood eosinophil count as percentage of total svkkeihqwn8561-46-79 09:05:00* Test Item Value Reference Range Interpretation Comments Eosinophils % (Manual) (test code = 714-6) 5 0-7 [facility]wood[facility] SINGLE (PORTABLE)2020-01-30 18:13:00 [place] [address] Patient Name: SHAKA MOORE MR #: [id number] : 1965 Age/Sex: 54/F Req #: [id number] Adm Physician: REI GEORGE MD Ordered by: BETTY EVANGELISTA MD Report #: [id number] Location: [facility] Room/Bed: [place] [address] Procedure: [id number] DX/CHEST S BROOKS (PORTABLE) Exam Date: 01/30/20 [...] 6:14 PM Dictated By: NICKIE HAZEL MD 1815 Transcribed By: MELANIE on 01/30/20 1 814 COPY TO: BETTY EVANGELISTA MD CHEST 2 EOXPR7391-99-11 15:58:00 [place] [address] Patient Name: SHAKA MOORE MR #: [id number] : 1965 Age/Sex: 54/F Req #: [id number] Adm Physician: REI GEORGE MD Ordered by: RAHUL NOLAN MD Report #: [id number] Location: MED/SURG2 Room/Bed: [facility] Procedure: [id number] DX/CHEST 2 EWS Exam Date: 01/26/20 Exam [...] Kinase (test code = 2157-6) 7 29-168 [facility] creatine kinase MB measurement (mass/volume)2020-01-26 10:50:00* Test Item Value Reference Range Interpretation Comments Creatine Kinase MB (test code = 41839-4) 0.30 0-5.0 [facility]woodTroponin I measurement by highly sensitive enzyme zzxqxxpcjyq8463-82-17 10:50:00* Test Item Value Reference Range Interpretation Comments Troponin I (test code = 83731-5) 0.009 0-0.300 [facility]woodFluoroscopic procedure less than one hour tdomqqmm4850-40-59 18:40:00* Test Item Value Reference Range Interpretation [...] complexity tests.Testing performed by [facility] [address] [place], [place] [phone] Director: Sandip You M.D.CLIA # [id number] [facility] CenterCT ABDOMEN/PELVIS BA9745-85-54 17:58:00 [facility] [address] [place], [place] [address] Patient Name: SHAKA MOORE MR #: [id number] : 1965 Age/Sex: 54/F Req #: [id number] Adm Physician: Ordered by: LILIANA BORGES MD Report #: [id number] Location: ER Room/Bed: Procedure: [id number] CT/CT ABDOM EN/PELVIS WO Exam Date: 01/25/20 [...] (PT) in platelet poor plasma by coagulation hvlos9385-67-51 13:00:00* Test Item Value Reference Range Interpretation Comments Prothrombin Time (test code = 5902-2) 13.5 11.9-14.5 [facility]wood[facility] in Platelet poor plasma by Coagulation jlzpb2165-02-73 13:00:00* Test Item Value Reference Range Interpretation Comments Prothromb Time International Ratio (test code = 6301-6) 0.97 Oral Anticoagulant Therapy INR Values:1. Low Intensity Therapy 1.5 - 2.02 . Moderate Intensity Therapy 2.0 - 3.03. High Intensity Therapy(1) 2.5 - 3. 54. High Intensity Therapy(2) 3.0 - 4.05. Panic Value INR > 5.0 [facility]woodActivated partial thromboplastin time (aPTT) in platelet poor plasma by coagulation zqtoe7271-55-93 13:00:00* Test Item Value Reference Range Interpretation Comments Activated Partial Thromboplast Time (test code = 72602-2) 24.7 23.8-35.5 [facility]woodUrine color wrgrupuihwwls8678-17-10 13:00:00* Test Item Value Reference Range Interpretation Comments Urine Color (test code = 5778-6) RED YELLOW [facility]woodUrine honndgk8330-89-13 13:00:00* Test Item Value Reference Range Interpretation Comments Urine Clarity (test code = 38726-3) HAZY CLEAR [facility] gravity of Urine by Test strip 2020-01-25 13:00:00* Test Item Value Reference Range Interpretation Comments Urine Specific [place] (test code = 5811-5) 1.025 1.010-1.02 5 [facility]wood[facility] pH measurement by automated test vvhte1293-47-37 13:00:00* Test Item Value Reference Range Interpretation Comments Urine pH (test code = 14340-8) 7 5-7 [facility]woodUrine leukocyte esterase detection by bqhpltxd1378-61-66 13:00:00* Test Item Value Reference Range Interpretation Comments Urine Leukocyte Esterase (test code = 5799-2) NEGATIVE NEGATIVE [facility]woodUrine nitrite xwlpfhbzg4505-83-63 13:00:00* Test Item Value Reference Range Interpretation Comments Urine Nitrite (test code = 28872-8) NEGATIVE NEGATIVE [facility]woodU[facility] protein measurement by test strip (mass/volume)2020-01-25 13:00:00* Test Item Value Reference Range Interpretation Comments Urine Protein (test code = 5804-0) >=300 NEGATIVE [facility]woodUrine glucose ersornsym2338-69-86 13:00:00* Test Item Value Reference Range Interpretation Comments Urine Glucose (UA) (test code = 2349-9) NEGATIVE NEGATIVE [facility]woodUrine ketones detection by automated test hazkv5380-48-78 13:00:00* Test Item Value Reference Range Interpretation Comments Urine Ketones (test code = 03941-3) NEGATIVE NEGATIVE [facility]woodUrine urobilinogen measurement by test strip (mass/volume)2020-01-25 13:00:00* Test Item Value Reference Range Interpretation Comments Urine Urobilinogen (test code = 22553-3) 0.2 0.2-1 [facility]wood[facility] total bilirubin measurement (mass/volume)2020-01-25 13:00:00* Test Item Value Reference Range Interpretation Comments Urine Bilirubin (test code = 1978-6) SMALL NEGATIVE [facility]woodUrine erythrocytes ynxhcloss1346-43-99 13:00:00* Test Item Value Reference Range Interpretation Comments Urine Blood (test code = 34181-9) LARGE NEGATIVE [facility]woodAutomated urine sediment leukocyte count by microscopy (number/high power field)2020-01-25 13:00:00* Test Item Value Reference Range Interpretation Comments Urine WBC (test code = 5821-4) 0-5 0-5 [facility]woodErythrocytes detection in urine sediment by light cvhhofjjtj5489-39-22 13:00:00* Test Item Value Reference Range Interpretation Comments Urine RBC (test code = 34947-7) >50 0-5 [facility]woodBacteria detection in urine sediment by light ykcgetfzjx9967-88-67 13:00:00* Test Item Value Reference Range Interpretation Comments Urine Bacteria (test code = 67743-3) NONE NONE [facility] BrownwoodEpithelial cells detection in urine sediment by light trmzxohhqj3901-20-60 13:00:00* Test Item Value Reference Range Interpretation Comments Urine Epithelial Cells (test code = 07298-5) RARE NONE [facility]woodBacterial urine oguxwxx3207-41-00 13:00:00* Test Item Value Reference Range Interpretation Comments Urine Culture (test code = 630-4) ESCHERICHIA COLI-ESBL [facility]woodCHEST 2 FNKOH6967-08-92 13:16:00 [place] [address] Patient Name: SHAKA MOORE MR #: [id number] : 1965 Age/Sex: 54/F Req #: [id number] Adm Physician: Ordered by: RAHUL NOLAN MD Report #: [id number] Location: OR Room/Bed: Procedure: [id number] DX/CHEST 2 EWS Exam Date: 01/24/20 Exam [...] Urinalysis screen and microscopy, with reflex to tqrstkr7829-37-50 20:28:55* Test Item Value Reference Range Interpretation Comments Specimen site (test code = 7627321) Clean catch Color, UA (test code = 5778-6) Yellow Appearance, UA (test code = 5767-9) Cloudy Specific gravity, UA (test code = 5811-5) 1.020 1.001-1.035 pH, UA (test code = 5803-2) 6.0 5.0-8.5 Protein, UA (test code = 41632-8) 2+ Negative A Glucose, UA (test code = 82053-4) Negative Negative Ketones, UA (test code = 2514-8) Negative Negative Bilirubin, UA (test code = 5770-3) Negative Negative Blood, UA (test code = 5794-3) Moderate Negative A Nitrite, UA (test code = 5802-4) Positive Negative A Urobilinogen, UA (test code = 09463-0) <2.0 <2.0 Leukocyte esterase, UA (test code = 5799-2) Large Negative A Epithelial cells, UA (test code = 5787-7) >20 /HPF WBC, UA (test code = 5821-4) >180 0- 4 /HPF H RBC, UA (test code = 93604-6) 53 0- 5 /HPF H Bacteria, UA (test code = 69332-5) Moderate None seen A Yeast, UA (test code = 69796-3) None seen Yeast with pseudohyphae, UA (test code = 05012-2) None seen Lab Interpretation (test code = 36994-6) Abnormal [facility]Com[facility] metabolic ifssg0059-41-32 18:23:25* Test Item Value Reference Range Interpretation Comments Sodium (test code = 2951-2) 142 135- 148 mEq/L Potassium (test code = 2823-3) 4.2 3.5- 5.0 mEq/L Chloride (test code = 2075-0) 103 98- 112 mEq/L CO2 (test code = 2027-9) 24 24- 31 mEq/L Anion gap (test code = 78094-0) 15@ANIO 7- 15 mEq/L BUN (test code = 3094-0) 18 mg/dL 6-20 Creatinine (test code = 2160-0) 1.35 mg/dL 0.5-0.9 H Glucose (test code = 2345-7) 111 mg/dL 65-99 H Calcium (test code = 80154-4) 9.6 mg/dL 8.3-10.2 Protein (test code = 2885-2) 7.5 g/dL 6.3-8.3 - 4.6- 7.0 g/dL1 week 4.4-7.6 g/dL7 months-1year 5.1-7.3 g/dL1-2 years 5.6-7.5 g/dL>3 years 6.0-8.0 g/nG50-422 6.3-8.3 g/dL Albumin (test code = 1751-7) 3.4 g/dL 3.5-5 L A/G ratio (test code = 1759-0) 0.8 0.7-3.8 Alkaline phosphatase (test code = 6768-6) 99 U/L 35-104 AST (test code = 1920-8) 21 U/L 10-35 ALT (test code = 1742-6) 15 U/L 5-50 Total bilirubin (test code = 1974-2) <0.2 0-1.2 Lab Interpretation (test code = 53389-4) Abnormal [facility] MethodistEstimated HOF2017-53-24 18:10:55* Test Item Value Reference Range Interpretation Comments Estimated GFR (test code = 5488) 45 mL/min/1.73 m2 A Catergory Units InterpretationG1 >=90 Normal or highG2 60-89 Mildly klcoeuwwxH4j 45-59 Mildly to moderately hhaqbcrdoF6z 30-44 Moderately to severely decreasedG4 15-29 Severely decreasedG5 <15 Kidney failureThe eGFR was calculated using the Chronic Kidney Disease Epidemiology Collaboration (CKD-EPI) equation. Interpretation is based on recommendations of the National Kidney Foundation-Kidney Disease Outcomes Quality Initiative (NKF-KDOQI) published in 2014. Lab Interpretation (test code = 25834-2) Abnormal [facility] MethodistProthrombin time with JCU2806-22-86 17:58:15* Test Item Value Reference Range Interpretation Comments Prothrombin time (test code = 5902-2) 14.0 11.5- 14.5 sec INR (test code = 19157-5) 1.1 Th e International Normalized Ratio (INR) is a therapeutic monitoring tool for patients who are stable on oral anticoagulant therapy. An INR of 2.0-3.0 is suggested for deep vein thrombosis/pulmonary embolism. [facility] MethodistPartial thromboplastin time, qezekwthh5820-71-93 17:57:54* Test Item Value Reference Range Interpretation Comments PTT (test code = 38269-7) 28.4 23.0- 36.0 sec PTT therapeutic range for unfractionated heparin is61.0-112.0 seconds which corresponds to Anti-Xa0.3-0.7 U/ml. [facility] with platelet and bgqrgbhuyuug5256-83-80 17:47:24* Test Item Value Reference Range Interpretation Comments WBC (test code = 98090-9) 10.59 4.50- 11.00 k/uL RBC (test code = 38745-5) 4.21 m/uL 4.2-5.5 HGB (test code = 718-7) 11.7 g/dL 12-16 L HCT (test code = 4544-3) 39.8 % 37-47 MCV (test code = 787-2) 94.5 fL 82-100 MCH (test code = 785-6) 27.8 pg 27-34 MCHC (test code = 786-4) 29.4 g/dL 31-37 L RDW - SD (test code = 31022-5) 46.4 fL 37-55 MPV (test code = 22762-9) 11.3 fL 8.8-13.2 Platelet count (test code = 78225-8) 421 150- 400 k/uL H Nucleated RBC (test code = 88532-7) 0.00 /100 WBC Neutrophils (test code = 34021-7) 67.1 % 39-69 Lymphocytes (test code = 97078-1) 15.2 % 25-45 L Monocytes (test code = 23262-2) 11.2 % 0-10 H Eosinophils (test code = 36697-9) 5.3 % 0-5 H Basophils (test code = 24580-6) 0.8 % 0-1 Immature granulocytes (test code = 11602-7) 0.4 % 0-1 "Immature granulocytes" (promyelocytes, myelocytes, metamyelocytes) Lab Interpretation (test code = 23422-1) Abnormal [facility] urinalysis kprsblge3297-81-95 15:06:00* Test Item Value Reference Range Interpretation Comments Color urine, POC (test code = 1464851) Yellow Clarity urine, POC (test code = 7206256) Clear Glucose urine, POC (test code = 0254899) Negative Negative Bilirubin urine, POC (test code = 3773666) Negative Negative Ketones urine, POC (test code = 2501601) Negative Negative Specific gravity urine, POC (test code = 0695744) >/=1.030 1.00 5-1.030 Blood urine, POC (test code = 8342250) Large Negative A pH urine, POC (test code = 9928002) 6.0 5.0, 5.5, 6. 0, 6.5, 7.0, 7.5, 8.0, 8.5 Protein urine, POC (test code = 8340670) Trace Negative A Urobilinogen urine, POC (test code = 5665439) <2.0 <2.0 Nitrite urine, POC (test code = 9651433) Positive Negative A Leukocyte esterase urine, POC (test code = 5164071) Small Ne gative A Lab Interpretation (test code = 80987-3) Abnormal [facility] MethodistBLADDER,CVQYHS3251-99-29 16:19:00 RUN DATE: 12/27/19 [facility] Lab PAGE 1 RUN TIME: 1620 Specimen Inqui ry RUN USER: INTERFACE PATIENT: SHAKA MOORE ACCT #: [id number] LOC: [place] U #: [id number] AGE/SX: 54/F ROOM: [facility] RE12/23/19REG DR: Rei George MD : [birth year] BED: A DIS: 12/25/19 STATUS: DIS IN TLOC: SPEC #: [id number] RECD: 12/24/19 STATUS: ARJUN REBianca #: [id number] CONCEPCION: 12/23/19- DR: Rahul Nolan MD ENTERED: 12/24/19 SP TYPE: BX BLAD OTHR DR: Garland Boswell MD, Raul R MD TUMOR REGISTRYORDERED: GROSS COPIES TO: Garland Boswell MD [address] [place], [place] [address] Rahul Nolan MD [address] [place] [address] TUMOR REGISTRY MARKERS: INTRADEPARTM ENTAL CONSULT, MALIGNANCY PROCEDURES: GROSS (12/26/19-144) TISSUES: 1 . URINARY BLADDER, NOS - TUMOR 2. URINARY BLADDER, NOS - MIDLINE NECK BX 3. URINARY BLADDER, NOS - RIGHT NECK BX 4. URINARY BLADDER, NOS - LEFT NECK BX CLINICAL HISTORY COLLECTION DATE: 12/21/19 B LADDER TUMOR COMMENT The sections of the invasive tumor in the [facility] st specimen demonstrate sheets and nests of malignant tumor cells with frequent mitotic figures and areas of necrosis. Scattered markedly atypical cells are present in the areas. Immunostains were prepared at [employer] [facility] and [facility]. The controls stain appropriately. Muc h of the tumor is positive for Pancytokeratin. The tumor is negative for LCA. Lymphocytes within the specimen are staining with the LCA. CONTINUED ON NEXT PAGE RUN DATE: 12/27/19 [facility] PAGE 2 RUN TIME: 1 620 Specimen Inquiry RUN USER: INT ERFACE RADHA Son #: [id number] PATIENT: SHAKA MOORE #[id number] (C ontinued) COMMENT (Continued) Intradepar tmental consultation: [...] AND SQUAMOUS METAPLASIA, BLADDER MUCOSA W/ D 49418, 56989U2 MACROSCOPIC The first specimen is received in [...] moy uring 0.2 cm. GROSS PERFORMED AT [facility] [address] [facility] CONTINUED ON NEXT PAGE RUN DATE: 12/27/19 [facility] PAGE 3 RUN TIME: 1620 Specimen Inquiry RUN USER: INTERFACE SPEC #: [id number] PATIENT: SHAKA MOORE #[id number] (Continued)------ ------ MACROSCOPIC (Continued) [place] [address] (P) [phone] MICROSCOPIC All of the stains, including any controls performed, stain appropriately. MICROSCOPIC PERFORMED AT [facility] [address] [facility] [place] [address] (p)[phone] PERFORMING SITE Diagnosis performed at: [facility] [place] [address] [place] [address] Signed SIGNATURE ON FILE Lucia Carreon MD 12/27/19 16 END O F REPORT CBC W/AUTO [id number] 06:14:00* Test Item Value Reference Range Interpretation [...] = MDIFF) NO, ONLY SCAN NEEDED DIFFERENTIAL [id number] 06:14:00* Test Item Value Reference Range Interpretation Comments STAIN ACCEPTABILITY (test code = STN ACCEPTABLE) STAIN ACCEPTABLE POLYCHROMASIA (test code = POLC) 1+ ANISOCYTOSIS (test code = ANISO) 1+ MORPHOLOGY COMMENT (test code = MOC) TEST NOT PERFORMED PLATELET ESTIMATE (test code = PLTEST) ADEQUATE PLATELET MORPHOLOGY (test code = PLTMORPH) NORMAL BASIC METABOLIC [id number] 05:53:00* Test Item Value Reference Range Interpretation [...] CA) 9.3 mg/dL 8.5-10.1 N BASIC METABOLIC FLTZO3826-71-43 05:41:00* Test Item Value Reference Range Interpretation [...] code = CA) mg/dL 8.5-10.1 CBC W/AUTO PBGF1088-84-28 05:26:00* Test Item Value Reference Range Interpretation [...] = MDIFF) NO, ONLY SCAN NEEDED DIFFERENTIAL QILP5726-12-21 05:26:00* Test Item Value Reference Range Interpretation Comments STAIN ACCEPTABILITY (test code = STN ACCEPTABLE) CABOT RINGS (test code = CAB) MORPHOLOGY COMMENT (test code = MOC) PLATELET ESTIMATE (test code = PLTEST) PLATELET MORPHOLOGY (test code = PLTMORPH) CBC W/AUTO [id number] 05:26:00* Test Item Value Reference Range Interpretation [...] = MDIFF) NO, ONLY SCAN NEEDED DIFFERENTIAL [id number] 05:26:00* Test Item Value Reference Range Interpretation Comments STAIN ACCEPTABILITY (test code = STN ACCEPTABLE) CABOT RINGS (test code = CAB) MORPHOLOGY COMMENT (test code = MOC) PLATELET ESTIMATE (test code = PLTEST) PLATELET MORPHOLOGY (test code = PLTMORPH) CBC W/AUTO [id number] 05:26:00* Test Item Value Reference Range Interpretation [...] = MDIFF) NO, ONLY SCAN NEEDED DIFFERENTIAL [id number] 05:26:00* Test Item Value Reference Range Interpretation Comments STAIN ACCEPTABILITY (test code = STN ACCEPTABLE) MORPHOLOGY COMMENT (test code = MOC) PLATELET ESTIMATE (test code = PLTEST) PLATELET MORPHOLOGY (test code = PLTMORPH) CBC W/AUTO [id number] 05:26:00* Test Item Value Reference Range Interpretation [...] = MDIFF) NO, ONLY SCAN NEEDED DIFFERENTIAL [id number] 05:26:00* Test Item Value Reference Range Interpretation Comments STAIN ACCEPTABILITY (test code = STN ACCEPTABLE) CABOT RINGS (test code = CAB) MORPHOLOGY COMMENT (test code = MOC) PLATELET ESTIMATE (test code = PLTEST) PLATELET MORPHOLOGY (test code = PLTMORPH) Coronavirus 2019 nCoV Nfptcga0507-22-53 10:17:00* Test Item Value Reference Range Interpretation Comments Coronavirus 2019 nCoV Bedside (test code = COVNONPUIBED) Negative BASIC METABOLIC ECUET6218-08-18 02:24:00* Test Item Value Reference Range Interpretation [...] CA) 9.0 mg/dL 8.5-10.1 N HEPATIC FUNCTION [id number] 02:24:00* Test Item Value Reference Range Interpretation [...] reference range due to change in reagent. [id number] 02:24:00* Test Item Value Reference Range Interpretation Comments LIPASE (test code = LIP) 408 U/L 73.0-393.0 H HCG SERUM [id number] 02:24:00* Test Item Value Reference Range Interpretation Comments HCG SERUM QUAL (test code = HCGQL) NEGATIVE NEGATIVE This HCGQL test is NOT applicable for MALE patients.Check with nurse about probable order error.If Tumor Marker Test needed, nurse should order test "HCGTU"(Test #550.19078) BASIC METABOLIC [id number] 02:21:00* Test Item Value Reference Range Interpretation [...] code = CA) mg/dL 8.5-10.1 HEPATIC FUNCTION [id number] 02:21:00* Test Item Value Reference Range Interpretation [...] TOTAL (test code = ALKP) IUnit/L 45-117 [id number] 02:21:00* Test Item Value Reference Range Interpretation Comments LIPASE (test code = LIP) U/L 73.0-393.0 HCG SERUM [id number] 02:21:00* Test Item Value Reference Range Interpretation Comments HCG SERUM QUAL (test code = HCGQL) NEGATIVE NEGATIVE This HCGQL test is NOT applicable for MALE patients.Check with nurse about probable order error.If Tumor Marker Test needed, nurse should order test "HCGTU"(Test #550.84272) BASIC METABOLIC [id number] 02:17:00* Test Item Value Reference Range Interpretation [...] code = CA) mg/dL 8.5-10.1 HEPATIC FUNCTION [id number] 02:17:00* Test Item Value Reference Range Interpretation [...] TOTAL (test code = ALKP) IUnit/L 45-117 [id number] 02:17:00* Test Item Value Reference Range Interpretation Comments LIPASE (test code = LIP) U/L 73.0-393.0 HCG SERUM [id number] 02:17:00* Test Item Value Reference Range Interpretation Comments HCG SERUM QUAL (test code = HCGQL) NEGATIVE PROTHROMBIN [id number] 01:44:00* Test Item Value Reference Range Interpretation [...] (2.5-3.5) IS PATIENT ON ANTICOAGULANTS? NTHROMBOPLASTIN TIME [id number] 01:44:00* Test Item Value Reference Range Interpretation Comments THROMBOPLASTIN TIME PARTIAL (test code = PTT) 34.1 seconds 23.0-37. 0 N IS PATIENT ON ANTICOAGULANTS? NCBC W/O [id number] 01:36:00* Test Item Value Reference Range Interpretation [...] 6.7-11.0 H - CT ABD PELVIS W/O [id number] 00:57:00 Name: SHAKA MOORE [facility] : 1965 Age/S: 54 / F [address] [facility] Unit #: [id number] Loc: [place] [address] Phys: Kelton Cote MD Acct: [id number] Dis Date: Status: REG ER PHONE #: [phone] Exam Date: 12/23/2019 0037 FAX #: [phone] Reason: hematuria, L flank pain EXAMS: CPT CODE: [id number] CT ABD PELVIS W/O CONT 87969 AFTER HOURS SERVICE ON: 12/23/2019 12:48 AM [...] 1 Signed Report (CONTINUED) Name: SHAKA MOORE [facility] : 1965 Age/S: 54 / F [address] [facility] Unit #: [id number] Loc: [place] [address] Phys: Kelton Cote MD Acct: [id number] Dis Date: Status: REG ER PHONE #: [phone] Exam Date: 12/23/2019 0037 FAX #: [phone] Reason: jaquan turia, L flank pain EXAMS: CPT CODE: [id number] CT ABD PELVIS W/O CONT 48385 <Continued> at 0057 Reported and signed by: Cammie Aguilera M.D. CC: Kelton Cote MD Technologist:Michael Price, RT(R)(CT) CTDI: DLP: Trnscb Date/Time: 12/23/2019 (005) SorayaMA50 Orig Print D/T: S: 12/23/2019 (010) PAGE 2 Signed Report URINALYSIS [id number] 00:02:00* Test Item Value Reference Range Interpretation Comments UA COLOR (test code = COLU) BLOODY YELLOW A Previously reported result: BLOODY Edited by: [email or web address] on 12/23/19:2108 UA APPEARANCE (test code = [...] #/HPF NONE A Urine Source? Clean CatchURINALYSIS [id number] 00:01:00* Test Item Value Reference Range Interpretation Comments UA COLOR (test code = COLU) YELLOW Previously reported result: BLOODY Edited by: [email or web address] on 12/23/19:2108 UA APPEARANCE (test code = [...] #/HPF NONE A Urine Source? Clean CatchURINALYSIS [id number] 00:00:00* Test Item Value Reference Range Interpretation [...] Count (test code = 6690-2) 10.90 4.8-10.8 [facility]wood[facility] erythrocytes automated count (number/volume)2019-12-05 04:50:00* Test Item Value Reference Range Interpretation Comments Red Blood Count (test code = 789-8) 3.11 3.6-5.1 [facility]wood[facility] hemoglobin measurement (moles/volume)2019-12-05 04:50:00* Test Item Value Reference Range Interpretation Comments Hemoglobin (test code = 21186-6) 9.0 12.0-16.0 [facility] BrownwoodAutomated blood hematocrit (volume fraction)2019-12-05 04:50:00* Test Item Value Reference Range Interpretation Comments Hematocrit (test code = 4544-3) 29.1 34.2-44.1 [facility] BrownwoodAutomated erythrocyte mean corpuscular hsqeez9619-04-19 04:50:00* Test Item Value Reference Range Interpretation Comments Mean Corpuscular Volume (test code = 787-2) 93.6 81-99 [facility] BrownwoodAutomated erythrocyte mean corpuscular hemoglobin (mass per erythrocyte)2019-12-05 04:50:00* Test Item Value Reference Range Interpretation Comments Mean Corpuscular Hemoglobin (test code = 785-6) 28.9 28-32 [facility] BrownwoodAutomated erythrocyte mean corpuscular hemoglobin concentration measurement (mass/volume)2019-12-05 04:50:00* Test Item Value Reference Range Interpretation Comments Mean Corpuscular Hemoglobin Concent (test code = 786-4) 30.9 31-35 [facility] BrownwoodRDW EczEl-Swk5786-80-28 04:50:00* Test Item Value Reference Range Interpretation Comments Red Cell Distribution Width (test code = 26051-6) 12.1 11.7 -14.4 [facility] BrownwoodAutomated blood platelet count (count/volume)2019-12-05 04:50:00* Test Item Value Reference Range Interpretation Comments Platelet Count (test code = 777-3) 318 140-360 [facility] BrownwoodAutomated blood segmented neutrophil count as percentage of total dsqrregtkv5531-84-83 04:50:00* Test Item Value Reference Range Interpretation Comments Neutrophils (%) (Auto) (test code = 31507-6) 68.6 38.7-80.0 [facility] BrownwoodAutomated blood lymphocyte count as percentage ot total mrvismzjyy0789-71-51 04:50:00* Test Item Value Reference Range Interpretation Comments Lymphocytes (%) (Auto) (test code = 736-9) 13.8 18.0-39.1 [facility]woodAutomated blood monocyte count as percentage of total ozuvwbzmgl2263-52-24 04:50:00* Test Item Value Reference Range Interpretation Comments Monocytes (%) (Auto) (test code = 5905-5) 13.3 4.4-11.3 [facility] BrownwoodAutomated blood eosinophil count as percentage of total iwiposdspx5564-84-33 04:50:00* Test Item Value Reference Range Interpretation Comments Eosinophils (%) (Auto) (test code = 713-8) 3.1 0.0-6.0 [facility]woodAutomated blood basophil count as percentage of total btfqmabgtd0608-30-33 04:50:00* Test Item Value Reference Range Interpretation Comments Basophils (%) (Auto) (test code = 706-2) 0.6 0.0-1.0 [facility] BrownwoodFluoroscopic procedure less than one hour lowolltt9164-42-59 04:50:00* Test Item Value Reference Range Interpretation Comments IM GRANULOCYTES % (test code = IM GRANULOCYTES %) 0.6 0.0- 1.0 [facility] BrownwoodAutomated blood neutrophil count 2019-12-05 04:50:00* Test Item Value Reference Range Interpretation Comments Neutrophils # (Auto) (test code = 751-8) 7.5 2.1-6.9 [facility]woodBlood lymphocytes count (number/volume) 2019-12-05 04:50:00* Test Item Value Reference Range Interpretation Comments Lymphocytes # (Auto) (test code = 27488-4) 1.5 1.0-3.2 [facility]woodBlood monocytes automated count (number/volume)2019-12-05 04:50:00* Test Item Value Reference Range Interpretation Comments Monocytes # (Auto) (test code = 742-7) 1.5 0.2-0.8 [facility] BrownwoodAutomated blood eosinophil count 2019-12-05 04:50:00* Test Item Value Reference Range Interpretation Comments Eosinophils # (Auto) (test code = 711-2) 0.3 0.0-0.4 [facility] BrownwoodAutomated blood basophil count (count/volume)2019-12-05 04:50:00* Test Item Value Reference Range Interpretation Comments Basophils # (Auto) (test code = 704-7) 0.1 0.0-0.1 [facility] BrownwoodFluoroscopic procedure less than one hour khhbdhtr6654-02-78 04:50:00* Test Item Value Reference Range Interpretation Comments Absolute Immature Granulocyte (auto (arminda t code = Absolute Immature Granulocyte (auto) 0.07 0-0.1 [facility] plasma sodium measurement (moles/volume)2019-12-05 04:50:00* Test Item Value Reference Range Interpretation Comments Sodium Level (test code = 2951-2) 137 136-145 [facility] Pasoerum or plasma potassium measurement (moles/volume)2019-12-05 04:50:00* Test Item Value Reference Range Interpretation Comments Potassium Level (test code = 2823-3) 3.6 3.5-5.1 [facility] Paso[facility]um or plasma chloride measurement (moles/volume)2019-12-05 04:50:00* Test Item Value Reference Range Interpretation Comments Chloride Level (test code = 2075-0) 106 98-107 [facility] Pasoerum or plasma carbon dioxide, total measurement (moles/volume)2019-12-05 04:50:00* Test Item Value Reference Range Interpretation Comments Carbon Dioxide Level (test code = 2028-9) 23 22-29 [facility] Paso[facility]um or plasma anion wzz6840-74-60 04:50:00* Test Item Value Reference Range Interpretation Comments Anion Gap (test code = 86805-2) 11.6 8-16 [facility] Paso[facility]um or plasma urea nitrogen measurement (mass/volume)2019-12-05 04:50:00* Test Item Value Reference Range Interpretation Comments Blood Urea Nitrogen (test code = 3094-0) 7 - [facility] Pasoerum or plasma creatinine measurement (mass/volume)2019-12-05 04:50:00* Test Item Value Reference Range Interpretation Comments Creatinine (test code = 2160-0) 0.98 0.57-1.11 [facility] Pasoerum or plasma urea nitrogen/creatinine mass bjoxf2097-87-85 04:50:00* Test Item Value Reference Range Interpretation Comments BUN/Creatinine Ratio (test code = 3097-3) 7 01-01 [facility] BrownwoodEstimated glomerular filtration rate (GFR) wtgejqxsospyu5854-47-97 04:50:00* Test Item Value Reference Range Interpretation Comments Estimat Glomerular Filtration Rate (test code = 734591664) 59 >60 Ranges were taken from the National Kidney Disease Education Program and the [employer], [employer] literature.Reference ranges:60 or greater: Iochxm05-88 ( for 3 consecutive months): Chronic kidney disease 15 or less: Kidney failureH[facility] Center BrownwoodGlucose gwcywsstxwi4576-98-20 04:50:00* Test Item Value Reference Range Interpretation Comments Glucose Level (test code = TCP4030) 119 74-118 [facility] Pasoerum or plasma calcium measurement (mass/volume)2019-12-05 04:50:00* Test Item Value Reference Range Interpretation Comments Calcium Level (test code = 22841-2) 8.4 8.4-10.2 [facility]woodCHEST SINGLE (PORTABLE)2019-12-04 21:08:00 [place] [address] Patient Name: SHAKA MOORE MR #: [id number] : 1965 Age/Sex: 54/F Req #: [id number] Adm Physician: REI GEORGE MD Ordered by: ARACELI QUIROZ NP Report #: [id number] Location: [facility] Room/Bed: [address] Procedure: [id number] DX/CHEST S BROOKS (PORTABLE) Exam Date: 12/04/19 [...] MELANIE on 12/03 COPY TO: ARACELI QUIROZ GUE[employer] EXPERIENCE CAPTAIN Serum or plasma magnesium measurement (mass/volume)2019-12-04 04:30:00* Test Item Value Reference Range Interpretation Comments Magnesium Level (test code = 43718-3) 2.0 1.3-2.1 [facility]woodBlood platelets count by estimate (number/volume)2019-12-02 08:28:00* Test Item Value Reference Range Interpretation Comments Platelet Estimate (test code = 76162-0) SLIGHTLY DECREASED [facility] BrownwoodPlatelet zesakddpdd5482-54-12 08:28:00* Test Item Value Reference Range Interpretation Comments Platelet Morphology Comment (test code = 83810-2) FEW EDTA CLUMPING [facility] BrownwoodRB ggiejdmegv5879-44-02 08:28:00* Test Item Value Reference Range Interpretation Comments Red Cell Morphology Comment (test code = 6742-1) NORMAL [facility]woodBlood platelets count by estimate (number/volume)2019-12-02 08:28:00* Test Item Value Reference Range Interpretation Comments Platelet Estimate (test code = 14646-9) SLIGHTLY DECREASED [facility] BrownwoodPlatelet orytolbxgh5392-88-76 08:28:00* Test Item Value Reference Range Interpretation Comments Platelet Morphology Comment (test code = 15200-1) FEW EDTA CLUMPING [facility] BrownwoodRB gezpdaagdv4537-41-09 08:28:00* Test Item Value Reference Range Interpretation Comments Red Cell Morphology Comment (test code = 6742-1) NORMAL [facility] BrownwoodProthrombin time (PT) in platelet poor plasma by coagulation crctr7672-82-81 05:35:00* Test Item Value Reference Range Interpretation Comments Prothrombin Time (test code = 5902-2) 13.1 11.9-14.5 [facility] BrownwoodINR in Platelet poor plasma by Coagulation dcbjz2529-51-61 05:35:00* Test Item Value Reference Range Interpretation Comments Prothromb Time International Ratio (test code = 6301-6) 0.94 Oral Anticoagulant Therapy INR Values:1. Low Intensity Therapy 1.5 - 2.02 . Moderate Intensity Therapy 2.0 - 3.03. High Intensity Therapy(1) 2.5 - 3. 54. High Intensity Therapy(2) 3.0 - 4.05. Panic Value INR > 5.0 [facility] BrownwoodActivated partial thromboplastin time (aPTT) in platelet poor plasma by coagulation rkjlj6717-15-24 05:35:00* Test Item Value Reference Range Interpretation Comments Activated Partial Thromboplast Time (test code = 88960-9) 28.5 23.8-35.5 [facility] Paso[facility]um or plasma total bilirubin measurement (mass/volume)2019-11-30 05:35:00* Test Item Value Reference Range Interpretation Comments Total Bilirubin (test code = 1975-2) 1.1 0.2-1.2 [facility] BrownwoodFluoroscopic procedure less than one hour jdscvryz7488-17-41 05:35:00* Test Item Value Reference Range Interpretation Comments Aspartate Amino Transf (AST/SGOT) (test code = Aspartate Amino Transf (AST/SGOT)) 89 5-34 [facility] Pasoerum or plasma alanine aminotransferase measurement (enzymatic activity/volume)2019-11-30 05:35:00* Test Item Value Reference Range Interpretation Comments Alanine Aminotransferase (ALT/SGPT) (test code = 1742-6) 41 0-55 [facility] Pasoerum or plasma protein measurement (mass/volume)2019-11-30 05:35:00* Test Item Value Reference Range Interpretation Comments Total Protein (test code = 2885-2) 7.2 6.5-8.1 [facility] Pasoerum or plasma albumin measurement (mass/volume)2019-11-30 05:35:00* Test Item Value Reference Range Interpretation Comments Albumin (test code = 1751-7) 3.7 3.5-5.0 [facility] BrownwoodPlasma globulin measurement (mass/volume) 2019-11-30 05:35:00* Test Item Value Reference Range Interpretation Comments Globulin (test code = 81533-5) 3.5 2.3-3.5 [facility] Pasoerum or plasma albumin/globulin mass esvsr4675-41-93 05:35:00* Test Item Value Reference Range Interpretation Comments Albumin/Globulin Ratio (test code = 1759-0) 1.1 0.8-2.0 [facility] Pasoerum or plasma alkaline phosphatase measurement (enzymatic activity/volume)2019-11-30 05:35:00* Test Item Value Reference Range Interpretation Comments Alkaline Phosphatase (test code = 6768-6) 88 40-150 [facility] Pasoerum or plasma thyrotropin measurement by detection limit <= 0.005 miu/l (units/volume)2019-11-30 05:35:00* Test Item Value Reference Range Interpretation Comments Thyroid Stimulating Hormone (TSH) (test code = 10915-9) 4.019 0.350-4.940 [facility] Pasoerum or plasma thyrotropin measurement by detection limit <= 0.005 miu/l (units/volume)2019-11-30 05:35:00* Test Item Value Reference Range Interpretation Comments Thyroid Stimulating Hormone (TSH) (test code = 41979-7) 4.019 0.350-4.940 [facility]woodCHEST SINGLE ([facility]ABLE)2019-11-29 15:40:00 [facility] [address] [address] Patient Name: SHAKA MOORE MR #: [id number] : 1965 Age/Sex: 54/F Req #: [id number] Adm Physician: REI GEORGE MD Ordered by: NATALYA BERNABE DO Report #: [id number] Location: [facility] Room/Bed: [place] [address] Procedure: [id number] DX/CHEST SINGLE (PORTABLE) Exam Date: 11/29/19 Exam [...] 3:40 PM Dictated By: GRISEL CLAIRE MD 128 Transcribed By: MELANIE on 11/29/191539 COPY TO: NATALYA BERNABE DO Urine color ftwtweztfhuyj1806-35-82 14:10:00* Test Item Value Reference Range Interpretation Comments Urine Color (test code = 5778-6) BAUTISTA YELLOW [facility]woodUrine jqqtmyc5383-28-55 14:10:00* Test Item Value Reference Range Interpretation Comments Urine Clarity (test code = 06502-8) CLOUDY CLEAR [facility] Pasopecific gravity of Urine by Test strip 2019-11-29 14:10:00* Test Item Value Reference Range Interpretation Comments Urine Specific [place] (test code = 5811-5) 1.030 1.010-1.02 5 [facility]woodU[facility] pH measurement by automated test lidel6328-12-96 14:10:00* Test Item Value Reference Range Interpretation Comments Urine pH (test code = 85488-6) 6 5-7 [facility]woodUrine leukocyte esterase detection by hfwvjvmf2317-08-69 14:10:00* Test Item Value Reference Range Interpretation Comments Urine Leukocyte Esterase (test code = 5799-2) NEGATIVE NEGATIVE [facility]woodUrine nitrite eqgjvhjtg4743-23-31 14:10:00* Test Item Value Reference Range Interpretation Comments Urine Nitrite (test code = 25138-7) NEGATIVE NEGATIVE [facility]woodUrine protein measurement by test strip (mass/volume)2019-11-29 14:10:00* Test Item Value Reference Range Interpretation Comments Urine Protein (test code = 5804-0) >=300 NEGATIVE [facility]woodUrine glucose oobuolaml0441-53-14 14:10:00* Test Item Value Reference Range Interpretation Comments Urine Glucose (UA) (test code = 2349-9) NEGATIVE NEGATIVE [facility]woodUrine ketones detection by automated test xqxlf8150-75-43 14:10:00* Test Item Value Reference Range Interpretation Comments Urine Ketones (test code = 24430-8) NEGATIVE NEGATIVE [facility]woodUrine urobilinogen measurement by test strip (mass/volume)2019-11-29 14:10:00* Test Item Value Reference Range Interpretation Comments Urine Urobilinogen (test code = 04852-2) 0.2 0.2-1 [facility]woodUrine total bilirubin measurement (mass/volume)2019-11-29 14:10:00* Test Item Value Reference Range Interpretation Comments Urine Bilirubin (test code = 1978-6) NEGATIVE NEGATIVE [facility]woodUrine erythrocytes ontygqczi6575-72-61 14:10:00* Test Item Value Reference Range Interpretation Comments Urine Blood (test code = 49319-7) LARGE NEGATIVE [facility] BrownwoodAutomated urine sediment leukocyte count by microscopy (number/high power field)2019-11-29 14:10:00* Test Item Value Reference Range Interpretation Comments Urine WBC (test code = 5821-4) NONE 0-5 [facility] BrownwoodErythrocytes detection in urine sediment by light gvbhmfsrqr3319-46-86 14:10:00* Test Item Value Reference Range Interpretation Comments Urine RBC (test code = 33694-4) >50 0-5 [facility] BrownwoodBacteria detection in urine sediment by light vkwvzgdgoj8272-30-92 14:10:00* Test Item Value Reference Range Interpretation Comments Urine Bacteria (test code = 09401-3) MODERATE NONE [facility] BrownwoodEpithelial cells detection in urine sediment by light mltrcbdsez2589-77-29 14:10:00* Test Item Value Reference Range Interpretation Comments Urine Epithelial Cells (test code = 41588-3) NONE NONE [facility] BrownwoodUrine human chorionic gonadotropin (hCG) qzvggxhll4004-13-43 14:10:00* Test Item Value Reference Range Interpretation Comments Urine Test (test code = 2106-3) NEGATIVE NEGATIVE [facility] Pasoerum or plasma creatine kinase measurement (enzymatic activity/volume)2019-11-29 14:10:00* Test Item Value Reference Range Interpretation Comments Creatine Kinase (test code = 2157-6) 29 29-168 [facility] Pasoerum or plasma creatine kinase MB measurement (mass/volume)2019-11-29 14:10:00* Test Item Value Reference Range Interpretation Comments Creatine Kinase MB (test code = 50268-1) 0.40 0-5.0 [facility] BrownwoodTroponin I measurement by highly sensitive enzyme ahicgvbrqzb5722-19-63 14:10:00* Test Item Value Reference Range Interpretation Comments Troponin I (test code = 24064-3) < 0.001 0-0.300 [facility] CenterFlu[facility] procedure less than one hour ceqhjfro7289-81-13 14:10:00* Test Item Value Reference Range Interpretation [...] complexity tests.Testing performed by [facility] [id number] [place], [place] [phone] Director: Sandip You M.D.CLIA # [id number] [facility] CenterUrine human chorionic gonadotropin (hCG) kdukfzcfh9593-14-48 14:10:00* Test Item Value Reference Range Interpretation Comments Urine Test (test code = 2106-3) NEGATIVE NEGATIVE [facility] ABD PELVIS W/O WPSQ8041-85-71 17:59:00 Name: SHAKA MOORE [facility] : 1965 Age/S: 54 / F [address] [facility] Unit #: [id number] Loc: [place] [address] Phys: Sidney Jarrett 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 Clean CatchBASIC METABOLIC MKFPB4535-56-80 17:28:00* Test Item Value Reference Range Interpretation [...] = CA) 8.0 mg/dL 8.4-10.2 L URINALYSIS YSMOQTKI8757-07-39 17:21:00* Test Item Value Reference Range Interpretation [...] HPF NONE Urine Source? 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 Dis Date: PHONE #: [phone] Status: REG ER FAX #: [phone] Exam Date: 09/18/2018 Reason: COUGH EXAMS: CPT CODE: [id number] XR CHEST 2 V 08101 EXAM: Chest x-ray, 2 views; INFORMATION: Cough [...] Mar Technologist: Mai Horton Trnscrpt Data: 09/18/2018 (0642) SorayaGRW Orig Print D/T: S: 09/18/2018 (0376) PAGE 1 Signed Report thyroid stimulating hormone, fipqd8043-74-99 15:46:00* Test Item Value Reference Range Interpretation Comments thyroid stimulating hormone, serum (test code = 29) 8.460 u[iU]/ mL 0.450-4.500 H [facility]eURINALYSIS RNTVFVYZ4470-85-37 11:57:00* Test Item Value Reference Range Interpretation [...] HPF NONE Urine Source? Clean CatchUR HCG IEDC1585-87-18 11:57:00* Test Item Value Reference Range Interpretation Comments UR HCG QUAL (test code = HCGQLU) NEGATIVE This HCGQL test is NOT applicable for MALE patients.Check with nurse about probable order error.If Tumor Marker Test needed, nurse should order test "HCGTU"(Test #[id number]) Urine Source? Clean CatchURINALYSIS GGKWDIPF0099-50-93 11:56:00* Test Item Value Reference Range Interpretation [...] HPF 0-5 Urine Source? Clean CatchUR HCG [id number] 11:56:00* Test Item Value Reference Range Interpretation Comments UR HCG QUAL (test code = HCGQLU) Urine Source? Clean Catch
== END 2020-02-06 17:05 | disposition home or self-care (01) | DRG 654 ==
LOC: ER 12:59 → ERHOLD 20:37 → MED/SURG2 21:32 → IMCU 01-30 13:31 → MED/SURG 02-03 18:20
PROVIDERS: ADMIT Internal Medicine; ATTEND Internal Medicine
PROC: 02HV33Z Insertion of Infusion Device into Superior Vena Cava, Percutaneous Approach (ICD-10-PCS; 2020-01-30)
PROC: 0UT90ZZ Resection of Uterus, Open Approach (ICD-10-PCS; principal; 2020-02-01)
PROC: 0TR Urinary System, Replacement (ICD-10-PCS; 2020-02-01)
PROC: 0UT70ZZ Resection of Bilateral Fallopian Tubes, Open Approach (ICD-10-PCS; 2020-02-01)
PROC: 0UT20ZZ Resection of Bilateral Ovaries, Open Approach (ICD-10-PCS; 2020-02-01)
PROC: 0T1807C Bypass Bilateral Ureters to Ileocutaneous with Autologous Tissue Substitute, Open Approach (ICD-10-PCS; 2020-02-01)
PROC: 07BC0ZX Excision of Pelvis Lymphatic, Open Approach, Diagnostic (ICD-10-PCS; 2020-02-01)
DX: C67.9 Malignant neoplasm of bladder, unspecified (principal); Z68.42 Body mass index [BMI] 45.0-49.9, adult; N13.30 Unspecified hydronephrosis; N17.9 Acute kidney failure, unspecified; N39.0 Urinary tract infection, site not specified; Z16.12 Extended spectrum beta lactamase (ESBL) resistance; E66.01 Morbid (severe) obesity due to excess calories; I48.91 Unspecified atrial fibrillation; Z79.01 Long term (current) use of anticoagulants; Z90.5 Acquired absence of kidney; D50.9 Iron deficiency anemia, unspecified; B96.20 Unspecified Escherichia coli [E. coli] as the cause of diseases classified elsewhere; B96.89 Other specified bacterial agents as the cause of diseases classified elsewhere; I48.0 Paroxysmal atrial fibrillation; E87.6 Hypokalemia; Z88.1 Allergy status to other antibiotic agents; Z11.59 Encounter for screening for other viral diseases; I10 Essential (primary) hypertension
CPT/HCPCS: 36415; 71045; 71046; 74018; 74176; 80048; 80053; 81001; 82550; 82553; 83540; 83735; 84466; 84484; 85025; 85610; 85730; 86850; 86900; 86920; 87086; 87186; 88304; 88305; 88307; 88309; 88331; 96361; 99284; C1758; J0461; J1100; J1170; J1756; J2405; J2543; J2710; J2765; J3010; J3475; J3480; J7030; J7121; U0002